=== PATIENT | male | born 1935 | race Caucasian/White ===

== ENCOUNTER 2016-12-31 10:20 | Emergency (ER) | payer MEDICARE, BC ==
[2016-12-31] MEDS ORDERED: ACETAMINOPHEN IV (For NPO) 1,000 MG in EMPTY BAG 1 BAG IVPB STA (10:34)
[2016-12-31] MEDS ORDERED: IPRATROPIUM-ALBUTEROL 3 ML NEB INHALATION STA (10:35)
--- NOTE | 2016-12-31 10:38 | ED ---
General Adult HPI - General Chief complaint: Shortness of Breath Stated complaint: SOB Time Seen by Provider: 12/31/16 10:28 Source: patient, family, RN notes reviewed Mode of arrival: EMS Limitations: altered mental status - History of Present Illness Initial comments: Patient is a pleasant 81-year-old male presenting to the emergency department with concerns for difficulty in breathing. Patient has dementia and is a poor historian. Majority of history is taken from the family onset of symptoms was just yesterday. Cough is mild. Symptoms seem worse today. Patient seemed short of breath. Patient denies any dyspnea. Patient states he feels fine and has no complaints. Family also states patient has been shaking. - Related Data Home Medications Medication Instructions Recorded Confirmed Aspirin EC [Ecotrin Low Dose] 81 mg PO HS 04/30/16 12/31/16 Benazepril HCl 40 mg PO DAILY 04/30/16 12/31/16 Donepezil [Aricept] 10 mg PO BID 04/30/16 12/31/16 Felodipine [Felodipine ER] 10 mg PO DAILY 04/30/16 12/31/16 Memantine [Namenda] 20 mg PO BID 04/30/16 12/31/16 [place]-3 Fatty Acids/Fish Oil [Fish 1 cap PO DAILY 04/30/16 12/31/16 Oil 1,000 mg Softgel] Simvastatin [Zocor] 40 mg PO HS 04/30/16 12/31/16 Vitamin E 100 unit PO DAILY 04/30/16 12/31/16 Melatonin 10 mg PO HS 12/31/16 12/31/16 Previous Rx's Medication Instructions Recorded Albuterol Inhaler [Ventolin Hfa 2 puff INHALATION Q4HR PRN #1 12/31/16 Inhaler] inhaler Azithromycin [Zithromax Z-pack] 250 mg PO DIRECTED #6 tab 12/31/16 Allergies Allergy/AdvReac Type Severity Reaction Status Date / Time No Known Allergies Allergy Verified 12/31/16 12:40 Review of Systems ROS Statement: Those systems with pertinent positive or pertinent negative responses have been documented in the HPI. ROS Other: All systems not noted in ROS Statement are negative. Constitutional: Reports: fever, chills Eyes: Denies: eye pain ENT: Denies: ear pain Respiratory: Reports: cough, dyspnea Cardiovascular: Denies: chest pain Endocrine: Reports: fatigue Gastrointestinal: Denies: abdominal pain Genitourinary: Denies: dysuria Musculoskeletal: Denies: back pain Skin: Denies: rash Neurological: Reports: weakness (Generalized) Past Medical History Past Medical History: Dementia, Hyperlipidemia, Hypertension, Liver Disease History of Any Multi-Drug Resistant Organisms: None Reported Past Surgical History: Unable to Obtain Additional Past Surgical History / Comment(s): bilateral knee replacement, r shoulder surgery Past Anesthesia/Blood Transfusion Reactions: No Reported Reaction Past Psychological History: No Psychological Hx Reported Smoking Status: Former smoker Past Alcohol Use History: Occasional Past Drug Use History: None Reported General Exam Limitations: no limitations General appearance: alert, in no apparent distress Head exam: Present: atraumatic Eye exam: Present: normal appearance, PERRL ENT exam: Present: normal oropharynx Neck exam: Present: normal inspection Respiratory exam: Present: rales (Right f) Cardiovascular Exam: Present: regular rate, normal rhythm GI/Abdominal exam: Present: soft. Absent: tenderness Extremities exam: Present: normal inspection. Absent: pedal edema, calf tenderness Back exam: Present: normal inspection Neurological exam: Present: alert. Absent: motor sensory deficit Psychiatric exam: Present: normal affect, normal mood Skin exam: Absent: rash Course Vital Signs 12/31/16 12/31/16 12/31/16 10:22 10:34 11:04 Temperature 101.9 F H Pulse Rate 88 91 84 Respiratory 22 18 18 Rate Blood Pressure 109/66 152/76 163/79 O2 Sat by Pulse 93 L 94 L 93 L Oximetry 12/31/16 12/31/16 12/31/16 11:34 11:35 11:50 Temperature Pulse Rate 78 78 79 Respiratory 20 Rate Blood Pressure 150/71 O2 Sat by Pulse 93 L Oximetry 12/31/16 12/31/16 12:18 13:34 Temperature 101.0 F H Pulse Rate 84 82 Respiratory 20 18 Rate Blood Pressure 148/71 145/70 O2 Sat by Pulse 94 L 92 L Oximetry EKG Findings - EKG Comments: EKG Findings:: Normal sinus rhythm at 89. NC 182. QRS 84. QT 412. QTC 501. Normal axis. Normal QRS. No acute ST change. Medical Decision Making - Medical Decision Making Patient reexamined and feels much better. Patient is symptom-free and requests discharge. Pulse ox 94% on room air. Lung sounds are clear. Admission was offered however patient would like to go home. Family does request discharge as well. Patient and family are made aware that this could be early pneumonia and to return if symptoms worsen. - Lab Data Result diagrams: 12/31/16 10:30 12/31/16 10:30 Lab Results 12/31/16 12/31/16 12/31/16 Range/Units 10:30 10:30 10:30 WBC 8.0 (3.8-10.6) k/uL RBC 4.47 (4.30-5.90) m/uL Hgb 14.7 (13.0-17.5) gm/dL Hct 44.6 (39.0-53.0) % MCV 99.6 (80.0-100.0) fL MCH 32.8 (25.0-35.0) pg MCHC 32.9 (31.0-37.0) g/dL RDW 12.7 (11.5-15.5) % Plt Count 232 (150-450) k/uL Neutrophils % 85 % Lymphocytes % 9 % Monocytes % 5 % Eosinophils % 0 % Basophils % 0 % Neutrophils # 6.7 (1.3-7.7) k/uL Lymphocytes # 0.7 L (1.0-4.8) k/uL Monocytes # 0.4 (0-1.0) k/uL Eosinophils # 0.0 (0-0.7) k/uL Basophils # 0.0 (0-0.2) k/uL PT (9.0-12.0) sec INR (<1.1) APTT (22.0-30.0) sec Sodium 140 (137-145) mmol/L Potassium 4.1 (3.5-5.1) mmol/L Chloride 103 (98-107) mmol/L Carbon Dioxide 27 (22-30) mmol/L Anion Gap 10 mmol/L BUN 13 (9-20) mg/dL Creatinine 1.22 (0.66-1.25) mg/dL Est GFR (MDRD) Af Amer >60 (>60 ml/min/1.73 sqM) Est GFR (MDRD) Non-Af 57 (>60 ml/min/1.73 sqM) Glucose 107 H (74-99) mg/dL Plasma Lactic Acid Donte (0.7-2.0) mmol/L Calcium 10.2 (8.4-10.2) mg/dL Total Bilirubin 0.8 (0.2-1.3) mg/dL AST 34 (17-59) U/L ALT 44 (21-72) U/L Alkaline Phosphatase 135 H (38-126) U/L Total Creatine Kinase 107 (55-170) U/L CK-MB (CK-2) 0.8 (0.0-2.4) ng/mL CK-MB (CK-2) Rel Index 0.7 Troponin I <0.012 (0.000-0.034) ng/mL Total Protein 7.1 (6.3-8.2) g/dL Albumin 4.2 (3.5-5.0) g/dL Urine Color Urine Appearance (Clear) Urine pH (5.0-8.0) Ur Specific [place] (1.001-1.035) Urine Protein (Negative) Urine Glucose (UA) (Negative) Urine Ketones (Negative) Urine Blood (Negative) Urine Nitrate (Negative) Urine Bilirubin (Negative) Urine Urobilinogen (<2.0) mg/dL Ur Leukocyte Esterase (Negative) Influenza Type A RNA (Not Detectd) Influenza Type B (PCR) (Not Detectd) 12/31/16 12/31/16 12/31/16 Range/Units 10:30 10:30 10:30 WBC (3.8-10.6) k/uL RBC (4.30-5.90) m/uL Hgb (13.0-17.5) gm/dL Hct (39.0-53.0) % MCV (80.0-100.0) fL MCH (25.0-35.0) pg MCHC (31.0-37.0) g/dL RDW (11.5-15.5) % Plt Count (150-450) k/uL Neutrophils % % Lymphocytes % % Monocytes % % Eosinophils % % Basophils % % Neutrophils # (1.3-7.7) k/uL Lymphocytes # (1.0-4.8) k/uL Monocytes # (0-1.0) k/uL Eosinophils # (0-0.7) k/uL Basophils # (0-0.2) k/uL PT 10.2 (9.0-12.0) sec INR 1.0 (<1.1) APTT 25.7 (22.0-30.0) sec Sodium (137-145) mmol/L Potassium (3.5-5.1) mmol/L Chloride (98-107) mmol/L Carbon Dioxide (22-30) mmol/L Anion Gap mmol/L BUN (9-20) mg/dL Creatinine (0.66-1.25) mg/dL Est GFR (MDRD) Af Amer (>60 ml/min/1.73 sqM) Est GFR (MDRD) Non-Af (>60 ml/min/1.73 sqM) Glucose (74-99) mg/dL Plasma Lactic Acid Donte 1.6 (0.7-2.0) mmol/L Calcium (8.4-10.2) mg/dL Total Bilirubin (0.2-1.3) mg/dL AST (17-59) U/L ALT (21-72) U/L Alkaline Phosphatase (38-126) U/L Total Creatine Kinase (55-170) U/L CK-MB (CK-2) (0.0-2.4) ng/mL CK-MB (CK-2) Rel Index Troponin I (0.000-0.034) ng/mL Total Protein (6.3-8.2) g/dL Albumin (3.5-5.0) g/dL Urine Color Urine Appearance (Clear) Urine pH (5.0-8.0) Ur Specific [place] (1.001-1.035) Urine Protein (Negative) Urine Glucose (UA) (Negative) Urine Ketones (Negative) Urine Blood (Negative) Urine Nitrate (Negative) Urine Bilirubin (Negative) Urine Urobilinogen (<2.0) mg/dL Ur Leukocyte Esterase (Negative) Influenza Type A RNA Not Detected (Not Detectd) Influenza Type B (PCR) Not Detected (Not Detectd) 12/31/16 Range/Units 12:35 WBC (3.8-10.6) k/uL RBC (4.30-5.90) m/uL Hgb (13.0-17.5) gm/dL Hct (39.0-53.0) % MCV (80.0-100.0) fL MCH (25.0-35.0) pg MCHC (31.0-37.0) g/dL RDW (11.5-15.5) % Plt Count (150-450) k/uL Neutrophils % % Lymphocytes % % Monocytes % % Eosinophils % % Basophils % % Neutrophils # (1.3-7.7) k/uL Lymphocytes # (1.0-4.8) k/uL Monocytes # (0-1.0) k/uL Eosinophils # (0-0.7) k/uL Basophils # (0-0.2) k/uL PT (9.0-12.0) sec INR (<1.1) APTT (22.0-30.0) sec Sodium (137-145) mmol/L Potassium (3.5-5.1) mmol/L Chloride (98-107) mmol/L Carbon Dioxide (22-30) mmol/L Anion Gap mmol/L BUN (9-20) mg/dL Creatinine (0.66-1.25) mg/dL Est GFR (MDRD) Af Amer (>60 ml/min/1.73 sqM) Est GFR (MDRD) Non-Af (>60 ml/min/1.73 sqM) Glucose (74-99) mg/dL Plasma Lactic Acid Donte (0.7-2.0) mmol/L Calcium (8.4-10.2) mg/dL Total Bilirubin (0.2-1.3) mg/dL AST (17-59) U/L ALT (21-72) U/L Alkaline Phosphatase (38-126) U/L Total Creatine Kinase (55-170) U/L CK-MB (CK-2) (0.0-2.4) ng/mL CK-MB (CK-2) Rel Index Troponin I (0.000-0.034) ng/mL Total Protein (6.3-8.2) g/dL Albumin (3.5-5.0) g/dL Urine Color Yellow Urine Appearance Clear (Clear) Urine pH 7.5 (5.0-8.0) Ur Specific [place] 1.016 (1.001-1.035) Urine Protein Trace H (Negative) Urine Glucose (UA) Negative (Negative) Urine Ketones Negative (Negative) Urine Blood Negative (Negative) Urine Nitrate Negative (Negative) Urine Bilirubin Negative (Negative) Urine Urobilinogen <2.0 (<2.0) mg/dL Ur Leukocyte Esterase Negative (Negative) Influenza Type A RNA (Not Detectd) Influenza Type B (PCR) (Not Detectd) - Radiology Data Radiology results: image reviewed (This x-ray shows no acute process) Disposition Clinical Impression: Acute bronchitis Disposition: HOME SELF-CARE Condition: Stable Instructions: Acute Bronchitis (ED) Additional Instructions: Continue [id number] Tylenol or Motrin as needed. Return for difficulty in breathing, weakness, change in mental status, worsening symptoms or other concerns. Prescriptions: Albuterol Inhaler [Ventolin Hfa Inhaler] 2 puff INHALATION Q4HR PRN #1 inhaler PRN Reason: Dyspnea Azithromycin [Zithromax Z-pack] 250 mg PO DIRECTED #6 tab Referrals: Ashutosh Childress MD [Primary Care Provider] - 1-2 days
[2016-12-31] MEDS ORDERED: SODIUM CHLORIDE 0.9% 500 ML IV SCH (10:45)
[2016-12-31 10:57] LABS: Basophils % (A) 0 %; CH 33.2; CHCM 33.4; Eosinophils % (A) 0 %; HCT 44.6 % (39.0-53.0); HDW 2.12; HGB 14.7 gm/dL (13.0-17.5); Luc # (Auto) 0.15; Luc % (Auto) 2; Lymphocytes # (A) 0.7 k/uL (1.0-4.8); Lymphocytes % (A) 9 %; MCH 32.8 pg (25.0-35.0); MCHC 32.9 g/dL (31.0-37.0); MCV 99.6 fL (80.0-100.0); Mean Platelet Volume 6.6; Monocytes # (A) 0.4 k/uL (0-1.0); Monocytes % (A) 5 %; Neutrophils # (A) 6.7 k/uL (1.3-7.7); Neutrophils % (A) 85 %; RBC 4.47 m/uL (4.30-5.90); RDW 12.7 % (11.5-15.5); WBC (Perox) 7.96
[2016-12-31 11:04] LABS: Partial Thromboplastin Time 25.7 sec (22.0-30.0); Prothrombin Time 10.2 sec (9.0-12.0)
--- NOTE | 2016-12-31 11:16 | XR ---
EXAMINATION TYPE: XR chest 2V DATE OF EXAM: 12/31/2016 11:00 AM COMPARISON: 04/30/2016 INDICATION: Shortness of breath fever cough congestion TECHNIQUE: Frontal and lateral views of the chest are obtained. FINDINGS: The heart size is normal. The pulmonary vasculature is normal. The lungs are clear. IMPRESSION: 1. No acute pulmonary process.
[2016-12-31 11:20] LABS: ALT 44 U/L (21-72); AST 34 U/L (17-59); Alkaline Phosphatase 135 U/L (38-126); Anion Gap 10 mmol/L; Blood Urea Nitrogen 13 mg/dL (9-20); Calcium 10.2 mg/dL (8.4-10.2); Carbon Dioxide 27 mmol/L (22-30); Chloride 103 mmol/L (98-107); Glucose 107 mg/dL (74-99); Non-African American GFR(MDRD) 57 (>60 ml/min/1.73 sqM); Potassium 4.1 mmol/L (3.5-5.1); Sodium 140 mmol/L (137-145); Total Bilirubin 0.8 mg/dL (0.2-1.3); Total Protein 7.1 g/dL (6.3-8.2)
[2016-12-31 11:23] LABS: Creatine Kinase 107 U/L (55-170)
[2016-12-31 11:36] LABS: Creatine Kinase MB 0.8 ng/mL (0.0-2.4); Troponin I <0.012 ng/mL (0.000-0.034)
[2016-12-31 12:45] LABS: Appearance,Urine Clear (Clear); Bilirubin,Urine Negative (Negative); Glucose,Urine (UA) Negative (Negative); Ketones,Urine Negative (Negative); Leukocyte Esterase,Urine Negative (Negative); Nitrite,Urine Negative (Negative); PH, Urine 7.5 (5.0-8.0); Protein,Urine Trace (Negative); Specific Gravity,Urine 1.016 (1.001-1.035); UA Billing (MACRO vs. MICRO) CHEM; Urobilinogen,Urine <2.0 mg/dL (<2.0)
[2016-12-31] MEDS ORDERED: IBUPROFEN 400 MG TAB PO STA (14:04)
[2016-12-31] MEDS ORDERED: AZITHROMYCIN 500 MG TAB PO STA (14:06)
[2016-12-31 14:31] VITALS: BP 166/78; PULSE 88; RESP 16; TEMP 98.8
== END 2016-12-31 14:39 | disposition home or self-care (01) ==
LOC: SUPCPDRO 10:20 → EC 10:20
DX: J20.9 Acute bronchitis, unspecified (principal); F03.90 Unspecified dementia, unspecified severity, without behavioral disturbance, psychotic disturbance, mood disturbance, and anxiety; I10 Essential (primary) hypertension; E78.5 Hyperlipidemia, unspecified; Z87.891 Personal history of nicotine dependence; Z87.19 Personal history of other diseases of the digestive system; Z79.82 Long term (current) use of aspirin; Z79.899 Other long term (current) drug therapy
CPT/HCPCS: 36415; 94640; 93005; 80053; 82550; 82553; 83605; 84484; 85025; 85610; 85730; 81003; 87040; 87086; 87502; 71020; 99285; 96374; 96361 ×4; J0131

== ENCOUNTER 2018-06-28 14:44 | Inpatient (IN) | payer MEDICARE, BC ==
[2018-06-28] MEDS ORDERED: SODIUM CHLORIDE 0.9% 500 ML IV STA (14:52)
[2018-06-28] MEDS ORDERED: DIPH,PERTUS(ACELL)TETVAC-LF 0.5 ML VIAL IM ONE (14:53)
--- NOTE | 2018-06-28 14:56 | ED ---
General Adult HPI - General Stated complaint: FALL WITH HEAD INJURY Time Seen by Provider: 06/28/18 14:49 Source: patient, EMS, RN notes reviewed, old records reviewed Limitations: altered mental status (Dementia) - History of Present Illness Initial comments: 83-year-old male presents status post fall with head injury. According to EMS patient was shopping, began to feel somewhat flushed, he sat down and fell forward striking his forehead. Patient's denies loss of consciousness. According to EMS patient is only on a daily aspirin. Patient has no complaints the time my evaluation. He does have baseline dementia. Further history will be obtained from the patient's upon arrival. - Related Data Home Medications Medication Instructions Recorded Confirmed Aspirin EC [Ecotrin Low Dose] 81 mg PO HS 04/30/16 06/28/18 Benazepril HCl 40 mg PO DAILY 04/30/16 06/28/18 [place]-3 Fatty Acids/Fish Oil [Fish 1 cap PO DAILY 04/30/16 06/28/18 Oil 1,000 mg Softgel] Simvastatin [Zocor] 40 mg PO HS 04/30/16 06/28/18 Vitamin E 100 unit PO DAILY 04/30/16 06/28/18 Cholecalciferol [Vitamin D3] 1,000 unit PO BID 06/28/18 06/28/18 LORazepam [Ativan] 0.5 mg PO BID 06/28/18 06/28/18 Multivitamins, Thera [Multivitamin 1 tab PO DAILY 06/28/18 06/28/18 (formulary)] amLODIPine [Norvasc] 10 mg PO DAILY 06/28/18 06/28/18 Allergies Allergy/AdvReac Type Severity Reaction Status Date / Time No Known Allergies Allergy Verified 06/28/18 15:18 Review of Systems ROS Statement: Those systems with pertinent positive or pertinent negative responses have been documented in the HPI. ROS Other: All systems not noted in ROS Statement are negative. Limitations: ROS unobtainable due to patients medical condition Past Medical History Past Medical History: Dementia, Hyperlipidemia, Hypertension, Liver Disease History of Any Multi-Drug Resistant Organisms: None Reported Past Surgical History: Unable to Obtain Additional Past Surgical History / Comment(s): bilateral knee replacement, r shoulder surgery Past Anesthesia/Blood Transfusion Reactions: No Reported Reaction Past Psychological History: No Psychological Hx Reported Smoking Status: Former smoker Past Alcohol Use History: Occasional Past Drug Use History: None Reported General Exam General appearance: alert, in no apparent distress Head exam: Present: normocephalic. Absent: atraumatic (Abrasion on the left posterior parietal region with no active bleeding, laceration left forehead, no active bleeding.) Eye exam: Present: normal appearance, PERRL, EOMI ENT exam: Present: normal exam Neck exam: Present: normal inspection, other (C-collar in place by EMS). Absent : tenderness Respiratory exam: Present: normal lung sounds bilaterally, respiratory distress Cardiovascular Exam: Present: regular rate, normal rhythm, systolic murmur GI/Abdominal exam: Present: soft. Absent: distended, tenderness Extremities exam: Present: normal inspection, normal capillary refill. Absent: pedal edema Neurological exam: Present: alert. Absent: motor sensory deficit Psychiatric exam: Present: normal affect, normal mood Skin exam: Present: warm, dry Course Vital Signs 06/28/18 06/28/18 06/28/18 14:55 15:52 16:48 Temperature 97.1 F L Pulse Rate 72 72 72 Respiratory 18 18 18 Rate Blood Pressure 136/70 144/72 158/78 O2 Sat by Pulse 98 97 98 Oximetry EKG Findings - EKG Comments: EKG Findings:: EKG: Sinus rhythm with occasional PVC, rate of 71, NH interval 202, QRS duration 102, QTC 4:[address] segment elevation or depression Medical Decision Making - Medical Decision Making 83-year-old male presenting with syncopal episode. Patient did have head trauma , there is laceration which is repaired on the forehead. All wounds are cleansed and antibiotic ointment applied. Patient's tetanus is updated. Laboratory studies reveal normal hemoglobin, normal white blood cell count, mild elevation in serum creatinine at 1.3-4 baseline of 1.2. Troponin is negative. Head CT negative for intracranial hemorrhage or mass effect, CT cervical spine is negative for fracture or subluxation. Patient does have a systolic murmur on exam, will be For telemetry and cardiac echo. - Lab Data Result diagrams: 06/28/18 15:07 06/28/18 15:07 Lab Results 06/28/18 06/28/18 06/28/18 Range/Units 15:07 15:07 15:07 WBC 7.6 (3.8-10.6) k/uL RBC 4.05 L (4.30-5.90) m/uL Hgb 13.1 (13.0-17.5) gm/dL Hct 39.5 (39.0-53.0) % MCV 97.5 (80.0-100.0) fL MCH 32.4 (25.0-35.0) pg MCHC 33.3 (31.0-37.0) g/dL RDW 12.9 (11.5-15.5) % Plt Count 229 (150-450) k/uL Neutrophils % 78 % Lymphocytes % 14 % Monocytes % 5 % Eosinophils % 1 % Basophils % 0 % Neutrophils # 6.0 (1.3-7.7) k/uL Lymphocytes # 1.0 (1.0-4.8) k/uL Monocytes # 0.4 (0-1.0) k/uL Eosinophils # 0.1 (0-0.7) k/uL Basophils # 0.0 (0-0.2) k/uL PT (9.0-12.0) sec INR (<1.2) APTT (22.0-30.0) sec Sodium 138 (137-145) mmol/L Potassium 4.4 (3.5-5.1) mmol/L Chloride 110 H (98-107) mmol/L Carbon Dioxide 25 (22-30) mmol/L Anion Gap 3 mmol/L BUN 21 H (9-20) mg/dL Creatinine 1.32 H (0.66-1.25) mg/dL Est GFR (CKD-EPI)AfAm 57 (>60 ml/min/1.73 sqM) Est GFR (CKD-EPI)NonAf 49 (>60 ml/min/1.73 sqM) Glucose 92 (74-99) mg/dL Calcium 10.1 (8.4-10.2) mg/dL Total Bilirubin 0.4 (0.2-1.3) mg/dL AST 23 (17-59) U/L ALT 36 (21-72) U/L Alkaline Phosphatase 68 (38-126) U/L Total Creatine Kinase 57 (55-170) U/L CK-MB (CK-2) 1.4 (0.0-2.4) ng/mL CK-MB (CK-2) Rel Index 2.5 Troponin I <0.012 (0.000-0.034) ng/mL Total Protein 5.6 L (6.3-8.2) g/dL Albumin 3.5 (3.5-5.0) g/dL /08/07 Range/Units 15:07 WBC (3.8-10.6) k/uL RBC (4.30-5.90) m/uL Hgb (13.0-17.5) gm/dL Hct (39.0-53.0) % MCV (80.0-100.0) fL MCH (25.0-35.0) pg MCHC (31.0-37.0) g/dL RDW (11.5-15.5) % Plt Count (150-450) k/uL Neutrophils % % Lymphocytes % % Monocytes % % Eosinophils % % Basophils % % Neutrophils # (1.3-7.7) k/uL Lymphocytes # (1.0-4.8) k/uL Monocytes # (0-1.0) k/uL Eosinophils # (0-0.7) k/uL Basophils # (0-0.2) k/uL PT 9.8 (9.0-12.0) sec INR 1.0 (<1.2) APTT 19.5 L (22.0-30.0) sec Sodium (137-145) mmol/L Potassium (3.5-5.1) mmol/L Chloride (98-107) mmol/L Carbon Dioxide (22-30) mmol/L Anion Gap mmol/L BUN (9-20) mg/dL Creatinine (0.66-1.25) mg/dL Est GFR (CKD-EPI)AfAm (>60 ml/min/1.73 sqM) Est GFR (CKD-EPI)NonAf (>60 ml/min/1.73 sqM) Glucose (74-99) mg/dL Calcium (8.4-10.2) mg/dL Total Bilirubin (0.2-1.3) mg/dL AST (17-59) U/L ALT (21-72) U/L Alkaline Phosphatase (38-126) U/L Total Creatine Kinase (55-170) U/L CK-MB (CK-2) (0.0-2.4) ng/mL CK-MB (CK-2) Rel Index Troponin I (0.000-0.034) ng/mL Total Protein (6.3-8.2) g/dL Albumin (3.5-5.0) g/dL Disposition Clinical Impression: Syncope Disposition: ADMITTED IP TO THIS HOSP Condition: Stable Is patient prescribed a controlled substance at d/c from ED?: No Referrals: Ashutosh Childress MD [Primary Care Provider] - 1-2 days Time of Disposition: 17:26
[2018-06-28 15:17] LABS: Basophils % (A) 0 %; Eosinophils # (A) 0.1 k/uL (0-0.7); Eosinophils % (A) 1 %; HCT 39.5 % (39.0-53.0); HGB 13.1 gm/dL (13.0-17.5); Lymphocytes % (A) 14 %; MCH 32.4 pg (25.0-35.0); MCHC 33.3 g/dL (31.0-37.0); MCV 97.5 fL (80.0-100.0); Mean Platelet Volume 6.6; Monocytes # (A) 0.4 k/uL (0-1.0); Monocytes % (A) 5 %; Neutrophils % (A) 78 %; Platelet Count 229 k/uL (150-450); RBC 4.05 m/uL (4.30-5.90); RDW 12.9 % (11.5-15.5); WBC 7.6 k/uL (3.8-10.6)
[2018-06-28 15:29] LABS: Albumin 3.5 g/dL (3.5-5.0); Calcium 10.1 mg/dL (8.4-10.2); Potassium 4.4 mmol/L (3.5-5.1); Total Bilirubin 0.4 mg/dL (0.2-1.3); Total Protein 5.6 g/dL (6.3-8.2)
[2018-06-28 15:32] LABS: Prothrombin Time 9.8 sec (9.0-12.0)
[2018-06-28 15:34] LABS: Creatine Kinase 57 U/L (55-170); Partial Thromboplastin Time 19.5 sec (22.0-30.0)
[2018-06-28 15:46] LABS: Creatine Kinase MB 1.4 ng/mL (0.0-2.4); Troponin I <0.012 ng/mL (0.000-0.034)
--- NOTE | 2018-06-28 15:49 | CT ---
EXAMINATION TYPE: CT brain cspine wo con DATE OF EXAM: 06/28/2018 COMPARISON: CT brain and cervical spine April 30, 2016. HISTORY: FALL WITH HEAD INJURY and neck pain. CT DLP: 1700 mGycm. Automated Exposure Control for Dose Reduction was Utilized. TECHNIQUE: CT scan of the head and cervical spine are performed without contrast. FINDINGS: There is no acute intracranial hemorrhage or midline shift identified. There is diffuse v entricular and sulcal prominence consistent with diffuse cerebral atrophy. Areas of low-attenuation t hroughout the white matter redemonstrated. The calvarium is intact. There is redemonstration of small mucous retention cyst or polyp in inferior left maxillary sinus otherwise the globes are intact and the visualized sinuses are clear. Right-sided basal ganglia calcifications are redemonstrated. Opacif ied left-sided mastoid air cells are redemonstrated. Soft tissue surrounds the right-sided middle ear ossicles similar to prior. Cervical spine is visualized in its entirety from C1 through upper thoracic levels and demonstrates s table and straightened alignment without evidence of acute fracture or dislocation. Prevertebral sof t tissue appears within normal limits. The C1-C2 articulation is within normal limits on the coronal images. There is marked narrowing of the atlantodental interval redemonstrated. Vertebral body heights are ma intained. Advanced disc space narrowing with endplate sclerosis and moderate spurring C6-C7 level is redemonstrated. Posterior spur disc complexes effacing anterior thecal sac at C5-C6 and C6-C7 level o n sagittal and axial images. Review of axial images shows left-sided uncovertebral facet degenerative changes contributing to multilevel neural foraminal narrowing C2-C3 through C4-C5 level and right-si ded neural foraminal narrowing C5-C6 level due to right-sided uncovertebral facet degenerative change s. Thyroid gland is felt within normal limits. Visualized lung apices are clear. IMPRESSION: 1. There is no acute fracture or dislocation evident in the cervical spine. Multilevel degenerative c hanges redemonstrated most prominent at C6-C7 level. 2. No acute intracranial hemorrhage or midline shift is seen. Background fairly moderate to severe di ffuse cerebral atrophy and mild to moderate chronic small vessel ischemic change noted. Possible left -sided mastoiditis and chronic middle ear infection unchanged from prior.
--- NOTE | 2018-06-28 16:07 | XR ---
EXAMINATION TYPE: XR chest 2V DATE OF EXAM: 06/28/2018 COMPARISON: 10/06 HISTORY: Syncope and fall. TECHNIQUE: Frontal and lateral views of the chest are obtained. FINDINGS: There is no focal air space opacity, pleural effusion, or pneumothorax seen. Mediastinal p rominence is slightly enlarged from the prior, however may be exaggerated due to decreased inspiratio n and patient rotation. Chronic widening of the right acromioclavicular joint is noted. The osseous structures are intact. There is diffuse osseous demineralization. IMPRESSION: No focal consolidation to suggest pneumonia. Slight mediastinal widening is likely relat ed to patient positioning and only minimally progressed from the prior of 12/31/2016.
[2018-06-28] MEDS ORDERED: LIDOCAINE 1% INJ 10MG/ML (20 ML MDV) SQ ONE (16:16)
[2018-06-28] MEDS ORDERED: ACETAMINOPHEN TAB 325 MG TAB PO PRN (17:15)
[2018-06-28] MEDS ORDERED: SODIUM CHLORIDE 0.9% 1,000 ML IV SCH (17:15)
[2018-06-28] MEDS ORDERED: NALOXONE 0.4 MG/ML 1 ML VIAL IV PRN (17:15)
--- NOTE | 2018-06-28 18:45 | P.HPIM ---
History of Present Illness H&P Date: 06/28/18 Chief Complaint: Loss of consciousness This is a 83-year-old male with history of hypertension, dementia and " childhood murmur"who presented to emergency department after loss of consciousness. Patient was admitted supermarket with his store short walking around shopping when suddenly he felt clammy lightheaded and had to be bringing down had to be brought down to the ground. He at that point did not lost his consciousness he had but he tried to get up but at that point felt so lightheaded and clammy that he fell down and lost consciousness for few seconds. There were no preceding chest pain, lightheadedness, headache, aura, palpitations, diaphoresis or sweating. Patient states that he's been in usual state of health for the last few days without any particular problems. Right after the episode he regained consciousness for a few seconds her right after the episode he seems to be orientated and aware of his surrounding. Still elevated sweaty pale and clammy, no confusion, no tongue biting no, no tonoclonic activity was told, no urinary or bowel incontinence. He was brought to emergency department where spontaneous stable vital vital signs. Physical exam it was found to have very loud murmur in the aortic area. Family patient has had a murmur for most of his life since childhood. He has been he had followed with cardiology 1. and at that point he was told that he would need a follow-up echocardiograms all was every year. But he did not go back to the office and he was last follow-up many years ago. 9. Family patient has had several syncopal syncopal episodes over the last 2 years somewhat those and exertion and some of those addressed there were also similar in nature with him suddenly losing course and becoming pale and clammy. Per he has been also having some exertional dyspnea and there was no chest pain and a has no be any leg swelling or orthopnea. Patient has also history of hypertension for which he has been on amlodipine and Benzapril this has been stable those without any recent changes. He has been just recently started on Ativan couple days prior to this episode. Otherwise no new medications Review of Systems REVIEW OF SYSTEMS: CONSTITUTIONAL: denies any recent weight changes, fevers or night sweats. DERMATOLOGIC: denies any rashes. HEENT: Eyes: no changes in her vision. No eye pain. No discharge. ENT: She had no hearing changes, no throat pain, no sinus difficulties. No hoarseness. CARDIOVASCULAR: She denies any chest pain or abnormal heart beats, or any swelling in her ankles or feet. RESPIRATORY: No wheezing or coughing. GASTROINTESTINAL: No abdominal pain, nausea vomiting or changes in the bowel habits GENITOURINARY: denies any urinary urgency, frequency or burning, and there has been no blood in her urine. no flank pain. MUSCULOSKELETAL: full range of motion of all her joints without pain or swelling. ENDOCRINE: denies any heat or cold intolerance or excessive thirst or urination. NEUROLOGICAL: Currently, no headache.no vision changes No numbness or tingling. PSYCHIATRIC: No depression or anxiety Past Medical History Past Medical History: Dementia, Hyperlipidemia, Hypertension, Liver Disease Additional Past Medical History / Comment(s): Murmur since childhood History of Any Multi-Drug Resistant Organisms: None Reported Past Surgical History: Unable to Obtain Additional Past Surgical History / Comment(s): bilateral knee replacement, r shoulder surgery Past Anesthesia/Blood Transfusion Reactions: No Reported Reaction Past Psychological History: No Psychological Hx Reported Smoking Status: Former smoker Past Alcohol Use History: Occasional Past Drug Use History: None Reported Medications and Allergies Home Medications Medication Instructions Recorded Confirmed Type Aspirin EC [Ecotrin Low Dose] 81 mg PO HS 04/30/16 06/28/18 History Benazepril HCl 40 mg PO DAILY 04/30/16 06/28/18 History [place]-3 Fatty Acids/Fish Oil [Fish 1 cap PO DAILY 04/30/16 06/28/18 History Oil 1,000 mg Softgel] Simvastatin [Zocor] 40 mg PO HS 04/30/16 06/28/18 History Vitamin E 100 unit PO DAILY 04/30/16 06/28/18 History Cholecalciferol [Vitamin D3] 1,000 unit PO BID 06/28/18 06/28/18 History LORazepam [Ativan] 0.5 mg PO BID 06/28/18 06/28/18 History Multivitamins, Thera [Multivitamin 1 tab PO DAILY 06/28/18 06/28/18 History (formulary)] amLODIPine [Norvasc] 10 mg PO DAILY 06/28/18 06/28/18 History Allergies Allergy/AdvReac Type Severity Reaction Status Date / Time No Known Allergies Allergy Verified 06/28/18 15:18 Physical Exam Vitals: Vital Signs Temp Pulse Resp BP Pulse Ox 06/28/18 18:16 97.9 F 86 18 147/78 98 06/28/18 16:48 72 18 158/78 98 06/28/18 15:52 72 18 144/72 97 06/28/18 14:55 97.1 F L 72 18 136/70 98 Intake and Output 06/28/18 06/28/18 06/28/18 06:59 14:59 22:59 Other: Weight 81.647 kg - Constitutional General appearance: average body habitus, no acute distress, thin - EENT Sutured laceration on the forehead Eyes: anicteric sclerae, EOMI, PERRLA, normal appearance ENT: hard of hearing, normal oropharynx Ears: left: other (Left earlobe abrasion) - Neck Neck: no lymphadenopathy, normal ROM, no rigidity Carotids: bilateral: upstroke delayed - Respiratory Respiratory: bilateral: CTA, negative: diminished, dullness, rales, rhonchi, wheezing - Cardiovascular Rhythm: regular Heart sounds: normal: S1, S2 Abnormal Heart Sounds: systolic murmur systolic murmur (1) Type: holo Location: other Grade: IV/ Radiation: carotids - Gastrointestinal General gastrointestinal: normal bowel sounds, no organomegaly, soft, no tenderness - Integumentary Integumentary: no pale, no rash, no ulcer - Neurologic Neurologic: CNII-XII intact - Musculoskeletal I examined Thorley his muscular skeletal system. Shoulders elbows wrists hips knees and ankles all have expected range of motion without any limitation pain tenderness or limitation in the motions Musculoskeletal: strength equal bilaterally - Psychiatric Psychiatric: A&O x's 3 Results CBC & Chem 7: 06/28/18 15:07 06/28/18 15:07 Labs: Abnormal Lab Results - Last 24 Hours (Table) 06/28/18 06/28/18 06/28/18 Range/Units 15:07 15:07 15:07 RBC 4.05 L (4.30-5.90) m/uL APTT 19.5 L (22.0-30.0) sec Chloride 110 H (98-107) mmol/L BUN 21 H (9-20) mg/dL Creatinine 1.32 H (0.66-1.25) mg/dL Total Protein 5.6 L (6.3-8.2) g/dL Thrombosis Risk Factor Assmnt - DVT/VTE Prophylaxis DVT/VTE Prophylaxis: Low risk, early ambulation encouraged Assessment and Plan Plan: 1. Syncope Rule out cardiogenic rule out aortic stenosis Echo ordered Rule out side effects of medications a vasovagal Will hold Ativan continue usual blood pressure home medications and check orthostatics couple hours after administration in the morning Keep on telemetry valid for any arrhythmias 2. Aortic murmur Rule out symptomatic aortic stenosis Echo ordered 3. Hypertension Continue home medications and check orthostatic 4. CKD stage 3 Visit stable creatinine Presently is a full code is a surrogate decision maker 2 or less midnights expected stay
[2018-06-28] MEDS: ASPIRIN 81 MG PO SCH (20:57)
[2018-06-28] MEDS: ATORVASTATIN 20 MG TAB PO SCH (20:57)
[2018-06-28] MEDS ORDERED: MELATONIN 3 MG TABLET PO ONE (21:30)
[2018-06-29] MEDS: LISINOPRIL 20 MG TAB PO SCH (08:27)
[2018-06-29] MEDS: amLODIPine 10 MG TAB PO SCH (08:27)
--- NOTE | 2018-06-29 09:25 | P.CRDCN ---
History of Present Illness Consult date: 06/29/18 Requesting physician: Abisai Judd Consult reason: sycope Chief complaint: Syncope History of present illness: This is a pleasant 83-year-old gentleman with known history of hypertension, hyperlipidemia, heart murmur, prior syncopal episode, Alzheimer's dementia, most of the history was obtained from the who is at bedside. Patient was brought to the hospital via EMS. According to the , they were shopping in [employer], patient became extremely clammy and diaphoretic, they sat down on a bench, the got him a cold cloth, then he actually laid down on the bench. Symptoms seemed to have subsided, patient then stood up and instantly fell down to the floor, hitting the side of his left had an ear. He did pass out according to the . EMS was called, blood pressure on their arrival 130/78, heart rate in the 60s, 92% on room air, blood sugar 116 patient did incur a 2-3 inch laceration on the left side of his 4, laceration in the ear and posterior head area as well. EKG was performed on EMS arrival which revealed a normal sinus rhythm with occasional PVC, no acute changes noted. EKG on arrival here showed a normal sinus rhythm with occasional PVC, no acute changes noted, telemetry strips are reviewed, they could not show any evidence of any significant pauses or tachyarrhythmias. No bradycardia arrhythmias. Patient should have an admission to the hospital in April 2016 which time he presented with an episode of loss of consciousness, he was seen in Consultation by Dr. Castillo at that time, it was felt that the patient had an episode of vasovagal syncope and patient was recommended to follow-up in the office. According to the , they take daily walks of approximately quarter mile, she states at the end of their walks her does become extremely clammy and diaphoretic requiring him to sit down. Chest x-ray on arrival here did not reveal any focal consolidation to suggest pneumonia, slight mediastinotomy widening, likely related to patient's positioning. CAT scan of the head and spine was also performed which did not reveal any acute fracture or dislocation of the cervical spine. Blood pressure on arrival here 136/70 with a heart rate in the 70s, 98% on room air. Blood pressure this morning 158/80, heart rate in the 80s, 95% on room air. White blood cell count 7.6, hemoglobin 13.1, platelet count 229. Sodium 138, potassium 4.4, BUN 21, creatinine 1.3. Troponin 0.012. At the time of my examination this morning, patient is lying flat in bed, no complaints, he does have quite moderate to severe dementia and Alzheimer's, which according to the has been progressing significantly. Past Medical History Past Medical History: Dementia, Hyperlipidemia, Hypertension, Liver Disease Additional Past Medical History / Comment(s): Murmur since childhood History of Any Multi-Drug Resistant Organisms: None Reported Past Surgical History: Unable to Obtain Additional Past Surgical History / Comment(s): bilateral knee replacement, r shoulder surgery Past Anesthesia/Blood Transfusion Reactions: No Reported Reaction Smoking Status: Former smoker - Past Family History Mother Family Medical History: Cancer Father Family Medical History: Myocardial Infarction ([place]) Medications and Allergies Home Medications Medication Instructions Recorded Confirmed Type Aspirin EC [Ecotrin Low Dose] 81 mg PO HS 04/30/16 06/28/18 History Benazepril HCl 40 mg PO DAILY 04/30/16 06/28/18 History [place]-3 Fatty Acids/Fish Oil [Fish 1 cap PO DAILY 04/30/16 06/28/18 History Oil 1,000 mg Softgel] Simvastatin [Zocor] 40 mg PO HS 04/30/16 06/28/18 History Vitamin E 100 unit PO DAILY 04/30/16 06/28/18 History Cholecalciferol [Vitamin D3] 1,000 unit PO BID 06/28/18 06/28/18 History LORazepam [Ativan] 0.5 mg PO BID 06/28/18 06/28/18 History Multivitamins, Thera [Multivitamin 1 tab PO DAILY 06/28/18 06/28/18 History (formulary)] amLODIPine [Norvasc] 10 mg PO DAILY 06/28/18 06/28/18 History Allergies Allergy/AdvReac Type Severity Reaction Status Date / Time No Known Allergies Allergy Verified 06/28/18 15:18 Physical Exam Vitals: Vital Signs Temp Pulse Pulse Pulse Resp BP BP 06/29/18 08:00 97.6 F 87 18 159/83 06/29/18 04:00 97.7 F 68 18 131/72 06/29/18 00:00 97.4 F L 69 18 145/75 06/28/18 20:00 97.6 F 71 71 19 153/71 06/28/18 18:38 85 16 129/75 06/28/18 18:25 06/28/18 18:16 97.9 F 86 18 147/78 06/28/18 16:48 72 18 158/78 06/28/18 15:52 72 18 144/72 06/28/18 14:55 97.1 F L 72 18 136/70 Pulse Ox 06/29/18 08:00 95 06/29/18 04:00 96 06/29/18 00:00 96 06/28/18 20:00 96 06/28/18 18:38 97 06/28/18 18:25 97 06/28/18 18:16 98 06/28/18 16:48 98 06/28/18 15:52 97 06/28/18 14:55 98 Intake and Output 06/28/18 06/29/18 06/29/18 22:59 06:59 14:59 Other: Voiding Method Toilet Toilet # Voids 1 Weight 84.2 kg PHYSICAL EXAMINATION: GENERAL: 83-year-old gentleman in no acute distress at the time of my examination HEENT: Head is atraumatic, normocephalic. Laceration to the left scalp area has been sutured. Clean and dry. Left ear, old blood noted. Pupils equal, round. Sclera anicteric. Conjunctiva are clear. Mucous membranes of the mouth are moist. Neck is supple. There is no elevated jugular venous pressure. No carotid bruit is heard. HEART EXAMINATION: Heart S1 and S2 systolic murmur suggestive of aortic stenosis is heard. CHEST EXAMINATION: Lungs are clear to auscultation and precussion. No chest wall tenderness is noted on palpation or with deep breathing. ABDOMEN: Soft, nontender. Bowel sounds are heard. No organomegaly noted. EXTREMITIES: 2+ peripheral pulses with no evidence of peripheral edema and no calf tenderness noted. NEUROLOGIC [patient is awake, alert, confused Results 06/28/18 15:07 06/28/18 15:07 Cardiac Enzymes 06/28/18 06/28/18 Range/Units 15:07 15:07 AST 23 (17-59) U/L CK-MB (CK-2) 1.4 (0.0-2.4) ng/mL Troponin I <0.012 (0.000-0.034) ng/mL Coagulation 06/28/18 Range/Units 15:07 PT 9.8 (9.0-12.0) sec APTT 19.5 L (22.0-30.0) sec CBC 06/28/18 Range/Units 15:07 WBC 7.6 (3.8-10.6) k/uL RBC 4.05 L (4.30-5.90) m/uL Hgb 13.1 (13.0-17.5) gm/dL Hct 39.5 (39.0-53.0) % Plt Count 229 (150-450) k/uL Comprehensive Metabolic Panel 06/28/18 Range/Units 15:07 Sodium 138 (137-145) mmol/L Potassium 4.4 (3.5-5.1) mmol/L Chloride 110 H (98-107) mmol/L Carbon Dioxide 25 (22-30) mmol/L BUN 21 H (9-20) mg/dL Creatinine 1.32 H (0.66-1.25) mg/dL Glucose 92 (74-99) mg/dL Calcium 10.1 (8.4-10.2) mg/dL AST 23 (17-59) U/L ALT 36 (21-72) U/L Alkaline Phosphatase 68 (38-126) U/L Total Protein 5.6 L (6.3-8.2) g/dL Albumin 3.5 (3.5-5.0) g/dL Current Medications Generic Name Dose Route Start Last Admin Trade Name Freq PRN Reason Stop Dose Admin Acetaminophen 650 mg 06/28/18 17:15 Tylenol Tab PO Q6HR PRN Mild Pain or Fever > 100.5 Amlodipine Besylate 10 mg 06/29/18 09:00 06/29/18 08:27 Norvasc PO 10 mg DAILY MARTHA Administration Aspirin 81 mg 06/28/18 21:00 06/28/18 20:57 Aspirin PO 81 mg HS MARTHA Administration Atorvastatin Calcium 20 mg 06/28/18 21:00 06/28/18 20:57 Lipitor PO 20 mg HS MARTHA Administration Lisinopril 40 mg 06/29/18 09:00 06/29/18 08:27 Zestril PO 40 mg DAILY MARTHA Administration Naloxone HCl 0.2 mg 06/28/18 17:15 Narcan IV Q2M PRN Opioid Reversal Intake and Output 06/28/18 06/29/18 06/29/18 22:59 06:59 14:59 Other: Voiding Method Toilet Toilet # Voids 1 Weight 84.2 kg 06/28/18 15:07 06/28/18 15:07 EKG Interpretations (text) EKG shows normal sinus rhythm with occasional PVCs. Assessment and Plan Plan: Assessment and plan #1 syncope, rule out cardiac causes. #2 history of prior syncopal episodes #3 hypertension #4 hyperlipidemia #5 Alzheimer's dementia #6 murmur suggestive of aortic stenosis Plan We will obtain an echocardiogram with Doppler study. We will also check orthostatic blood pressure and heart rate every shift. Continue to monitor for any tachycardia or bradycardia arrhythmias. Patient may also benefit from addition of a loop recorder. Further recommendations to follow. DNP note has been reviewed, I agree with a documented findings and plan of care. Patient was seen and examined.
--- NOTE | 2018-06-29 10:10 | ECHOF ---
Referral Reason:syncope MEASUREMENTS -------- HEIGHT: 175.3 cm WEIGHT: 83.9 kg BP: 131/72 RVIDd: 2.9 cm (< 3.3) IVSd: 1.3 cm (0.6 - 1.1) LVIDd: 4.8 cm (3.9 - 5.3) LVPWd: 1.3 cm (0.6 - 1.1) IVSs: 1.8 cm LVIDs: 3.1 cm LVPWs: 1.7 cm LA Diam: 3.8 cm (2.7 - 3.8) LAESV Index (A-L): 28.68 ml/m Ao Diam: 4.1 cm (2.0 - 3.7) AV Cusp: 2.1 cm (1.5 - 2.6) MV EXCURSION: 14.577 mm (> 18.000) MV EF SLOPE: 54 mm/s (70 - 150) EPSS: 0.7 cm MV E Yossi: 0.71 m/s MV DecT: 339 ms MV A Yossi: 1.19 m/s MV E/A Ratio: 0.59 AV maxP.12 mmHg AV meanP.68 mmHg RAP: 5.00 mmHg RVSP: 31.34 mmHg FINDINGS -------- Sinus rhythm with extra systolic beats. This was a technically good study. The left ventricular size is normal. There is mild concentric left ventricular hypertrophy. Overa ll left ventricular systolic function is normal with, an EF between 55 - 60 %. The right ventricle is normal in size. LA is midly dilated 29-33ml/m2. The right atrium is normal in size. There is mild aortic valve sclerosis. There is mild aortic stenosis present. Peak/mean gradient a cross the Aortic Valve is 26.12mmHg / 14.68mmHg. The mitral valve leaflets are mildly thickened. Mild tricuspid regurgitation present. Right ventricular systolic pressure is normal at < 35 mmHg. The pulmonic valve was not well visualized. The aortic root is dilated measuring 4.1cm. Normal inferior vena cava with normal inspiratory collapse consistent with estimated right atrial pre ssure of 5 mmHg. The inferior vena cava is mildly dilated. There is no pericardial effusion. CONCLUSIONS -------- 1. Sinus rhythm with extra systolic beats. 2. This was a technically good study. 3. The left ventricular size is normal. 4. There is mild concentric left ventricular hypertrophy. 5. Overall left ventricular systolic function is normal with, an EF between 55 - 60 %. 6. The right ventricle is normal in size. 7. LA is midly dilated 29-33ml/m2. 8. The right atrium is normal in size. 9. There is mild aortic valve sclerosis. 10. There is mild aortic stenosis present. 11. Peak/mean gradient across the Aortic Valve is 26.12mmHg / 14.68mmHg. 12. The mitral valve leaflets are mildly thickened. 13. Mild tricuspid regurgitation present. 14. Right ventricular systolic pressure is normal at < 35 mmHg. 15. The pulmonic valve was not well visualized. 16. The aortic root is dilated measuring 4.1cm. 17. Normal inferior vena cava with normal inspiratory collapse consistent with estimated right atrial pressure of 5 mmHg. 18. The inferior vena cava is mildly dilated. 19. There is no pericardial effusion. [employer] SET UP OPERATOR: Kyung Montenegro RDCS
--- NOTE | 2018-06-29 15:02 | P.PN ---
Subjective Progress Note Date: 06/29/18 Principal diagnosis: Syncope no new events Objective - Vital Signs Vital signs: Vital Signs Temp 97.5 F L 06/29/18 11:30 Pulse 79 06/29/18 11:30 Resp 18 06/29/18 11:30 BP 134/73 06/29/18 11:34 Pulse Ox 95 06/29/18 11:30 Intake & Output 06/28/18 06/29/18 06/29/18 18:59 06:59 18:59 Weight 81.647 kg 84.2 kg Other: Voiding Method Toilet # Voids 1 - Constitutional General appearance: Present: no acute distress - EENT Eyes: Present: PERRLA - Respiratory Respiratory: bilateral: CTA - Cardiovascular Rhythm: regular Abnormal Heart Sounds: Present: systolic murmur - Gastrointestinal General gastrointestinal: Present: normal bowel sounds - Integumentary Integumentary: Present: normal turgor - Musculoskeletal Musculoskeletal: Present: strength equal bilaterally - Psychiatric Psychiatric Comment(s): confused Psychiatric: Present: appropriate affect - Labs CBC & Chem 7: 06/28/18 15:07 06/28/18 15:07 Labs: Abnormal Lab Results - Last 24 Hours (Table) 06/28/18 06/28/18 06/28/18 Range/Units 15:07 15:07 15:07 RBC 4.05 L (4.30-5.90) m/uL APTT 19.5 L (22.0-30.0) sec Chloride 110 H (98-107) mmol/L BUN 21 H (9-20) mg/dL Creatinine 1.32 H (0.66-1.25) mg/dL Total Protein 5.6 L (6.3-8.2) g/dL Assessment and Plan (1) Syncope Narrative/Plan: Appreciate cardiology input echo results reviewed awaiting further recommendations Current Visit: Yes Status: Acute Code(s): R55 - SYNCOPE AND COLLAPSE SNOMED Code(s): 553606789 (2) HTN (hypertension) Narrative/Plan: continue current regimen Current Visit: Yes Status: Acute Code(s): I10 - ESSENTIAL (PRIMARY) HYPERTENSION SNOMED Code(s): 87794131 (3) CKD (chronic kidney disease) stage 3, GFR 30-59 ml/min Narrative/Plan: continue to monitor Current Visit: Yes Status: Acute Code(s): N18.3 - CHRONIC KIDNEY DISEASE, STAGE 3 (MODERATE) SNOMED Code(s): 144138237
[2018-06-29] MEDS: ATORVASTATIN 20 MG TAB PO SCH (19:39)
[2018-06-29] MEDS: ASPIRIN 81 MG PO SCH (19:39)
[2018-06-29] MEDS: MELATONIN 3 MG TABLET PO SCH (21:30)
[2018-06-30] MEDS: amLODIPine 10 MG TAB PO SCH (10:02)
[2018-06-30] MEDS: LISINOPRIL 20 MG TAB PO SCH (10:02)
[2018-06-30] MEDS ORDERED: LORazepam 0.5 MG TAB PO SCH (10:15)
--- NOTE | 2018-06-30 19:17 | P.PN ---
Subjective Progress Note Date: 06/30/18 Principal diagnosis: Syncope Patient was seen and examined. No acute events overnight. No more dizziness, CP , SOB or palpitations. Objective - Vital Signs Vital signs: Vital Signs Temp 98.3 F 06/30/18 16:00 Pulse 93 06/30/18 16:00 Resp 18 06/30/18 16:00 BP 144/79 06/30/18 16:00 Pulse Ox 92 L 06/30/18 16:00 Intake & Output 06/30/18 06/30/18 07/01/18 06:59 18:59 06:59 Intake Total 480 600 Balance 480 600 Weight 83.5 kg Intake: Oral 480 600 Other: Voiding Method Toilet Toilet # Voids 1 - Exam General: non toxic, no distress, appears at stated age Derm: warm, dry Head: atraumatic, normocephalic, symmetric, Well healing scar over the L eye Eyes: EOMI, no lid lag, anicteric sclera Mouth: no lip lesion, mucus membranes moist Cardiovascular: S1S2 reg, no murmur, positive posterior tibial pulse bilateral, Lungs: CTA bilateral, no rhonchi, no rales , no accessory muscle use Abdominal: soft, nontender to palpation, no guarding, no appreciable organomegaly Ext: no gross muscle atrophy, no edema, no contractures Neuro: CN II-XI grossly intact, no focal neuro deficits Psych: Alert, oriented, appropriate affect - Labs CBC & Chem 7: 06/28/18 15:07 06/28/18 15:07 Assessment and Plan Assessment: Assessment 83 year old M with PMH of HTN and CKD presents to the ED after syncopal episode. Admitted for further workup of syncope. Plan 1. Syncope: Likely related to , seen on Echo. Trop < 0.01 x 1. Cardiology on consult - recommends MERRICK and Loop recorder. Telemetry monitoring. FU Cardiology , Orthostats in the AM 2. HTN: BP 144/79. Continue Amlodipine 10 QD, Lisinopril 40 QD. Monitor vitals, adjust medications as necessary. 3. CKD: BUN 21 Cr 1.32. Monitor and replace electrolytes. Avoid nephrotoxins. 4. ASCVD risk: Continue ASA and -statin.
[2018-06-30] MEDS ORDERED: HALOPERIDOL LACTATE 5 MG/ML 1 ML VIAL IVP PRN (19:40)
[2018-06-30] MEDS: MELATONIN 3 MG TABLET PO SCH (20:00)
[2018-06-30] MEDS: ATORVASTATIN 20 MG TAB PO SCH (20:00)
[2018-06-30] MEDS: ASPIRIN 81 MG PO SCH (20:00)
--- NOTE | 2018-07-01 03:46 | PN ---
PROGRESS NOTE This patient has been admitted with syncope. Clinically this patient's syncope appears to be vasovagal syncope. Patient has remained clinically stable. The patient has a murmur of aortic stenosis by transthoracic echocardiogram. Aortic stenosis appears to be mild to moderate but the 2nd heart sound is absent. In view of that, the patient will be evaluated with MERRICK as an outpatient. In view of the recurrent episodes of syncope, patient would have a tilt-table test as well as [QAMARKER monitor inserted to rule out any significant arrhythmia. This has been discussed with the . The patient can be discharged home today. MMODL / IJN: [id number] /
[2018-07-01 08:53] LABS: Albumin 3.6 g/dL (3.5-5.0); Calcium 10.3 mg/dL (8.4-10.2); Total Bilirubin 0.6 mg/dL (0.2-1.3); Total Protein 5.8 g/dL (6.3-8.2)
[2018-07-01] MEDS: LISINOPRIL 20 MG TAB PO SCH (09:05)
[2018-07-01] MEDS: amLODIPine 10 MG TAB PO SCH (09:05)
[2018-07-01 09:29] LABS: Potassium 4.1 mmol/L (3.5-5.1)
[2018-07-01] MEDS ORDERED: SODIUM CHLORIDE 0.9% 1,000 ML IV SCH ×2 (11:45)
--- NOTE | 2018-07-01 11:59 | P.PN ---
Subjective Progress Note Date: 07/01/18 Principal diagnosis: syncopal episode Patient was seen and examined. No acute events overnight. No dizziness. Vital signs stable. Objective - Vital Signs Vital signs: Vital Signs Temp 97.8 F 07/01/18 08:00 Pulse 83 07/01/18 08:00 Resp 16 07/01/18 08:00 BP 121/62 07/01/18 08:00 Pulse Ox 94 L 07/01/18 08:00 Intake & Output 06/30/18 07/01/18 07/01/18 18:59 06:59 18:59 Intake Total 600 10 480 Balance 600 10 480 Weight 85.3 kg Intake: IV 10 0.9 10 Oral 600 480 Other: Voiding Method Toilet Toilet # Voids 1 - Exam General: non toxic, no distress, appears at stated age Derm: warm, dry Head: atraumatic, normocephalic, symmetric, Well healing scar over the L eye Eyes: EOMI, no lid lag, anicteric sclera Mouth: no lip lesion, mucus membranes moist Cardiovascular: S1S2 reg, no murmur, positive posterior tibial pulse bilateral, Lungs: CTA bilateral, no rhonchi, no rales , no accessory muscle use Abdominal: soft, nontender to palpation, no guarding, no appreciable organomegaly Ext: no gross muscle atrophy, no edema, no contractures Neuro: CN II-XI grossly intact, no focal neuro deficits Psych: Alert, oriented, appropriate affect - Labs CBC & Chem 7: 06/28/18 15:07 07/01/18 08:18 Labs: Abnormal Lab Results - Last 24 Hours (Table) 07/01/18 Range/Units 08:18 Chloride 108 H (98-107) mmol/L Calcium 10.3 H (8.4-10.2) mg/dL Total Protein 5.8 L (6.3-8.2) g/dL Assessment and Plan Assessment: Assessment 83 year old M with PMH of HTN and CKD presents to the ED after syncopal episode. Admitted for further workup of syncope. Plan 1. Syncope: Unknown etiology but resolved. Echo shows mild , EF 55-60%. Trop < 0.01 x 1. Discussed with Dr. Mccain, unlikely as it is mild, will arrange for Loop recorder and Tilt table test for Monday. Telemetry monitoring. FU Cardiology, Orthostats 2. HTN: BP 121/62. Continue Amlodipine 10 QD, Lisinopril 40 QD. Monitor vitals, adjust medications as necessary. 3. MASHA: Resolved. Cr 1.32 to 1.19. Avoid nephrotoxins. Cut down on IVF. 4. ASCVD risk: Continue ASA 81 mg PO QD, Lipitor 20 mg PO QHS.
[2018-07-01] MEDS: SODIUM CHLORIDE 0.9% 1,000 ML IV SCH (13:20)
[2018-07-01] MEDS: ASPIRIN 81 MG PO SCH (20:21)
[2018-07-01] MEDS: MELATONIN 3 MG TABLET PO SCH (20:21)
[2018-07-01] MEDS: ATORVASTATIN 20 MG TAB PO SCH (20:21)
--- NOTE | 2018-07-02 04:23 | PN ---
PROGRESS NOTE This patient was admitted with syncope. Patient's history suggestive of vasovagal syncope. In view of the recurrent episodes of the syncope, the patient will be scheduled for a tilt table test as well as the loop monitor placement. Blood pressure is 127/75 mmHg, heart S1 and S2 is normal. Lungs are clinically clear to auscultation and percussion. Patient's hemoglobin is 13.1, BUN and creatinine were normal. We will continue the current medications and patient is scheduled for a loop monitor and tilt-table test tomorrow. MMODL / IJN: [id number] /
[2018-07-02 05:34] VITALS: RESP 16
[2018-07-02] MEDS: SODIUM CHLORIDE 0.9% 1,000 ML IV SCH (06:01)
[2018-07-02 07:47] VITALS: PULSE 77
[2018-07-02] MEDS: amLODIPine 10 MG TAB PO SCH (08:05)
[2018-07-02] MEDS: LISINOPRIL 20 MG TAB PO SCH (08:05)
[2018-07-02] MEDS ORDERED: SODIUM CHLORIDE 0.9% 1,000 ML IV ONE (12:12)
--- NOTE | 2018-07-02 13:34 | P.PCN ---
Preoperative Diagnosis: Diagnosis Recurrent syncope Referred by Dr. VC Mccain for tilt table test Twelve-lead ECG, inpatient, shows sinus rhythm normal [place] narrow QRS normal ST segments with a mildly prolonged [place] interval of 222 ms Tilt table test per protocol Baseline blood pressure 160/80 mmHg Baseline heart rate 77 beats a minute patient was tilted upright at 90 was 70 per protocol. There was a gradual but progressive drop in his blood pressure with a slight increase in heart rate to a maximal 93 beats a minute following which the blood pressure was not recordable by a standard cuff but was recorded by noninvasive BP monitoring, [employer] system. A low blood pressure of 57 mmHg was recorded when he started yawning. At no point did he lose consciousness no bradycardia noted Impression Orthostatic hypotension syndrome Mildly [place] interval
[2018-07-02] MEDS ORDERED: ceFAZolin IN SWFI 2 GM/20 ML SYRINGE IVP STA (13:35)
[2018-07-02] MEDS ORDERED: IV FLUID CONTINUATION 1,000 ML IV ONE (13:54)
[2018-07-02] MEDS ORDERED: fentaNYL (PF) 50 MCG/ML 2 ML AMP ONE (13:56)
[2018-07-02] MEDS ORDERED: LIDOCAINE 1% INJ 10MG/ML (20 ML MDV) ONE (14:18)
[2018-07-02] MEDS ORDERED: fentaNYL (PF) 50 MCG/ML 2 ML AMP IVP ONE (14:18)
[2018-07-02] MEDS ORDERED: LIDOCAINE 1% INJ 10MG/ML (20 ML MDV) SQ ONE (14:20)
--- NOTE | 2018-07-02 14:25 | P.PCN ---
Preoperative Diagnosis: Loop monitor implant, referred by Dr. VC Mccain Primary physicians: Dr. Childress Chief Radiation Therapist: Dr. Mccain Indication: Recurrent syncope Patient was brought to the EP lab in a fasting state. Written informed consent was obtained prior to the procedure. The left pectoral area was prepped and draped per protocol. Intravenous antibiotic was administered preoperatively. A subcutaneous Loop monitor was implanted successfully and the wound was closed per protocol. The device was programmed to detect significant van- arrhythmic and tachy-arrhythmic events, per protocol. Device and programming details: Syncope protocol programmed Patient underwent EP procedure under conscious sedation/moderate sedation, monitoring of the level of consciousness and physiologic parameters including but not limited to vital signs and oxygenation. Patient tolerated the procedure well without any acute complications. Start time: 1419 Stop time: 1425
--- NOTE | 2018-07-02 15:04 | P.PN ---
Subjective Progress Note Date: 07/02/18 Principal diagnosis: dizziness Patient was seen and examined. No acute events were noted. Objective - Vital Signs Vital signs: Vital Signs Temp 97.0 F L 07/02/18 07:42 Pulse 77 07/02/18 07:42 Resp 16 07/02/18 07:42 BP 158/75 07/02/18 07:42 Pulse Ox 94 L 07/02/18 07:42 Intake & Output 07/01/18 07/02/18 07/02/18 18:59 06:59 18:59 Intake Total 960 550 Balance 960 550 Weight 84.3 kg Intake: IV 550 0.9 550 Oral 960 Other: Voiding Method Toilet # Voids 1 1 1 # Bowel Movements 1 - Exam General: non toxic, no distress, appears at stated age Derm: warm, dry Head: atraumatic, normocephalic, symmetric, Well healing scar over the L eye Eyes: EOMI, no lid lag, anicteric sclera Mouth: no lip lesion, mucus membranes moist Cardiovascular: S1S2 reg, no murmur, positive posterior tibial pulse bilateral, Lungs: CTA bilateral, no rhonchi, no rales , no accessory muscle use Abdominal: soft, nontender to palpation, no guarding, no appreciable organomegaly Ext: no gross muscle atrophy, no edema, no contractures Neuro: CN II-XI grossly intact, no focal neuro deficits Psych: Alert, oriented, appropriate affect - Labs CBC & Chem 7: 06/28/18 15:07 07/01/18 08:18 Assessment and Plan Assessment: Assessment 83 year old M with PMH of HTN and CKD presents to the ED after syncopal episode. Admitted for further workup of syncope. Plan 1. Syncope: Unknown etiology but resolved. Echo shows mild , EF 55-60%. Trop < 0.01 x 1. Telemetry monitoring. For Loop recorder and Tilt Table test today. FU Cardiology, Orthostats 2. HTN: BP 158/75. Continue Amlodipine 10 QD, Lisinopril 40 QD. Monitor vitals, adjust medications as necessary. 3. MASHA: Resolved. Cr 1.32 to 1.19. Avoid nephrotoxins. Cut down on IVF. 4. ASCVD risk: Continue ASA 81 mg PO QD, Lipitor 20 mg PO QHS. 5. Agitation: Haldol 0.25 mg IV PRN. Try re-orientation first. Window side bed. Case was discussed with Dr. Mccain, cardiology. Tilt table test positive for orthostatics. Recommend that patient go home on fludrocortisone 0.1 mg by mouth daily. Patient was cleared for discharge from a cardiology perspective. Patient was advised follow-up with Dr. Mccain in one week to arrange for MERRICK and analyze loop recorder.
[2018-07-02 15:06] VITALS: BP 184/88; TEMP 97.5
[2018-07-03] MEDS ORDERED: FLUDROCORTISONE 0.1 MG TAB PO SCH (09:00)
== END 2018-07-02 17:49 | disposition home or self-care (01) | DRG 262 ==
LOC: EC 14:44 → 6SEL 17:15
PROVIDERS: ADMIT Hospitalist; ATTEND Hospitalist
PROC: 3E0234Z Introduction of Serum, Toxoid and Vaccine into Muscle, Percutaneous Approach (ICD-10-PCS; principal; 2018-06-28)
PROC: 0HQ1XZZ Repair Face Skin, External Approach (ICD-10-PCS; principal; 2018-06-28)
PROC: 4A02XFZ Measurement of Cardiac Rhythm, External Approach (ICD-10-PCS; 2018-07-02)
PROC: 0JH602Z Insertion of Monitoring Device into Chest Subcutaneous Tissue and Fascia, Open Approach (ICD-10-PCS; 2018-07-02)
PROC: 4A03XB1 Measurement of Arterial Pressure, Peripheral, External Approach (ICD-10-PCS; 2018-07-02)
DX: I95.1 Orthostatic hypotension (principal); E78.5 Hyperlipidemia, unspecified; F02.80 Dementia in other diseases classified elsewhere, unspecified severity, without behavioral disturbance, psychotic disturbance, mood disturbance, and anxiety; G30.9 Alzheimer's disease, unspecified; I12.9 Hypertensive chronic kidney disease with stage 1 through stage 4 chronic kidney disease, or unspecified chronic kidney disease; I35.0 Nonrheumatic aortic (valve) stenosis; I44.0 Atrioventricular block, first degree; N18.3 Chronic kidney disease, stage 3 (moderate); S09.90XA Unspecified injury of head, initial encounter; R40.2362 Coma scale, best motor response, obeys commands, at arrival to emergency department; R40.2142 Coma scale, eyes open, spontaneous, at arrival to emergency department; R40.2242 Coma scale, best verbal response, confused conversation, at arrival to emergency department; W19.XXXA Unspecified fall, initial encounter; Z79.899 Other long term (current) drug therapy; Z82.49 Family history of ischemic heart disease and other diseases of the circulatory system; Z87.891 Personal history of nicotine dependence; Z96.653 Presence of artificial knee joint, bilateral; Z79.82 Long term (current) use of aspirin; S01.81XA Laceration without foreign body of other part of head, initial encounter
CPT/HCPCS: 36415; 70450; 71046; 72125; 80053; 82550; 82553; 84484; 85025; 85610; 85730; 90471; 90715; 93005; 93306; 96360; 96361; 96372; 99285

== ENCOUNTER 2019-02-02 10:45 | Emergency (ER) | payer MEDICARE, BC ==
[2019-02-02] MEDS ORDERED: SODIUM CHLORIDE 0.9% 1,000 ML IV STA (10:52)
[2019-02-02 10:57] VITALS: TEMP 98.1
--- NOTE | 2019-02-02 11:18 | ED ---
Altered Mental Status HPI - General Stated Complaint: AMS Time Seen by Provider: 02/02/19 10:48 Source: patient, RN notes reviewed, old records reviewed Mode of arrival: EMS Limitations: no limitations - History of Present Illness Initial Comments: This is an 83-year-old male the ER for evaluation. Patient is here for evaluation of dementia. Patient does have history of Alzheimer's dementia. Patient was found down in his bathroom this morning with an unknown downtime. Patient's a poor historian, limited history is obtained from the could all she knows is that she follow down the ground and he is not making coherent sentences. But he states he normally does not make coherent sentences. Patient himself asked no complaints MD Complaint: altered mental status, decreased responsiveness -: days(s) Severity: moderate Consistency of Symptoms: waxing and waning, getting worse Context: history of similar presentation Associated Symptoms: weakness - Related Data Home Medications Medication Instructions Recorded Confirmed Aspirin EC [Ecotrin Low Dose] 81 mg PO HS 04/30/16 02/02/19 [place]-3 Fatty Acids/Fish Oil [Fish 1 cap PO BID 04/30/16 02/02/19 Oil 1,000 mg Softgel] Simvastatin [Zocor] 20 mg PO HS 04/30/16 02/02/19 Vitamin E 100 unit PO HS 04/30/16 02/02/19 Cholecalciferol [Vitamin D3] 1,000 unit PO BID 06/28/18 02/02/19 LORazepam [Ativan] 0.5 mg PO TID 06/28/18 02/02/19 Multivitamins, Thera [Multivitamin 1 tab PO BID 06/28/18 02/02/19 (formulary)] Benazepril HCl 40 mg PO DAILY 02/02/19 02/02/19 QUEtiapine [SEROquel] 50 mg PO HS 02/02/19 02/02/19 Previous Rx's Medication Instructions Recorded Lisinopril [Zestril] 20 mg PO DAILY #30 tab 07/02/18 Allergies Allergy/AdvReac Type Severity Reaction Status Date / Time No Known Allergies Allergy Verified 02/02/19 11:04 Review of Systems ROS Statement: Those systems with pertinent positive or pertinent negative responses have been documented in the HPI. ROS Other: All systems not noted in ROS Statement are negative. Past Medical History Past Medical History: Dementia, Hyperlipidemia, Hypertension, Liver Disease Additional Past Medical History / Comment(s): Murmur since childhood History of Any Multi-Drug Resistant Organisms: None Reported Past Surgical History: Unable to Obtain Additional Past Surgical History / Comment(s): bilateral knee replacement, r shoulder surgery, cardic monitior Past Anesthesia/Blood Transfusion Reactions: No Reported Reaction Past Psychological History: No Psychological Hx Reported Smoking Status: Former smoker - Past Family History Mother Family Medical History: Cancer Father Family Medical History: Myocardial Infarction (OR) General Exam Limitations: altered mental status General appearance: alert, lethargic Head exam: Present: atraumatic, normocephalic, normal inspection Eye exam: Present: normal appearance, PERRL, EOMI. Absent: scleral icterus, conjunctival injection, periorbital swelling ENT exam: Present: normal exam, mucous membranes moist Neck exam: Present: normal inspection. Absent: tenderness, meningismus, lymphadenopathy Respiratory exam: Present: normal lung sounds bilaterally. Absent: respiratory distress, wheezes, rales, rhonchi, stridor Cardiovascular Exam: Present: regular rate, normal rhythm, normal heart sounds. Absent: systolic murmur, diastolic murmur, rubs, gallop, clicks GI/Abdominal exam: Present: soft, normal bowel sounds. Absent: distended, tenderness, guarding, rebound, rigid Extremities exam: Present: normal inspection, full ROM, normal capillary refill. Absent: tenderness, pedal edema, joint swelling, calf tenderness Back exam: Present: normal inspection Neurological exam: Present: alert, oriented X3, CN II-XII intact Psychiatric exam: Present: normal affect, normal mood Skin exam: Present: warm, dry, intact, normal color. Absent: rash Course Vital Signs 02/02/19 02/02/19 02/02/19 10:52 11:00 11:30 Temperature 98.1 F Pulse Rate 90 93 86 Respiratory 18 18 16 Rate Blood Pressure 194/97 194/97 184/95 O2 Sat by Pulse 98 99 99 Oximetry 02/02/19 12:00 Temperature Pulse Rate 84 Respiratory 14 Rate Blood Pressure 178/91 O2 Sat by Pulse 97 Oximetry - Reevaluation(s) Reevaluation #1: 02/02/19 11:47 Medical record is reviewed Reevaluation #2: 02/02/19 14:47 patient is able to ambulate without significant difficulty Reevaluation #3: 02/02/19 14:47 Spoke with family regarding findings. Family is agreeable to take patient home Medical Decision Making - Medical Decision Making 83 male the ER found down. Weakness. No significant findings for patient's weakness. Patient can be discharged home as he is able to ambulate and all testing is normal at this point. - Lab Data Result diagrams: 02/02/19 11:28 02/02/19 11:28 Lab Results 02/02/19 02/02/19 02/02/19 Range/Units 11:28 11:28 11:28 WBC 20.4 H (3.8-10.6) k/uL RBC 4.27 L (4.30-5.90) m/uL Hgb 13.6 (13.0-17.5) gm/dL Hct 41.8 (39.0-53.0) % MCV 97.9 (80.0-100.0) fL MCH 31.9 (25.0-35.0) pg MCHC 32.6 (31.0-37.0) g/dL RDW 12.6 (11.5-15.5) % Plt Count 282 (150-450) k/uL Neutrophils % 91 % Lymphocytes % 3 % Monocytes % 4 % Eosinophils % 0 % Basophils % 0 % Neutrophils # 18.6 H (1.3-7.7) k/uL Lymphocytes # 0.7 L (1.0-4.8) k/uL Monocytes # 0.9 (0-1.0) k/uL Eosinophils # 0.1 (0-0.7) k/uL Basophils # 0.0 (0-0.2) k/uL PT 9.5 (9.0-12.0) sec INR 0.9 (<1.2) APTT 20.0 L (22.0-30.0) sec Sodium (137-145) mmol/L Potassium (3.5-5.1) mmol/L Chloride (98-107) mmol/L Carbon Dioxide (22-30) mmol/L Anion Gap mmol/L BUN (9-20) mg/dL Creatinine (0.66-1.25) mg/dL Est GFR (CKD-EPI)AfAm (>60 ml/min/1.73 sqM) Est GFR (CKD-EPI)NonAf (>60 ml/min/1.73 sqM) Glucose (74-99) mg/dL Plasma Lactic Acid Donte (0.7-2.0) mmol/L Calcium (8.4-10.2) mg/dL Phosphorus (2.5-4.5) mg/dL Magnesium (1.6-2.3) mg/dL Total Bilirubin (0.2-1.3) mg/dL AST (17-59) U/L ALT (21-72) U/L Alkaline Phosphatase (38-126) U/L Troponin I 0.017 (0.000-0.034) ng/mL Total Protein (6.3-8.2) g/dL Albumin (3.5-5.0) g/dL Urine Color Urine Appearance (Clear) Urine pH (5.0-8.0) Ur Specific [place] (1.001-1.035) Urine Protein (Negative) Urine Glucose (UA) (Negative) Urine Ketones (Negative) Urine Blood (Negative) Urine Nitrite (Negative) Urine Bilirubin (Negative) Urine Urobilinogen (<2.0) mg/dL Ur Leukocyte Esterase (Negative) Urine RBC (0-5) /hpf Urine WBC (0-5) /hpf Urine Mucus (None) /hpf Influenza Type A RNA (Not Detectd) Influenza Type B (PCR) (Not Detectd) 02/02/19 02/02/19 02/02/19 Range/Units 11:28 11:28 13:30 WBC (3.8-10.6) k/uL RBC (4.30-5.90) m/uL Hgb (13.0-17.5) gm/dL Hct (39.0-53.0) % MCV (80.0-100.0) fL MCH (25.0-35.0) pg MCHC (31.0-37.0) g/dL RDW (11.5-15.5) % Plt Count (150-450) k/uL Neutrophils % % Lymphocytes % % Monocytes % % Eosinophils % % Basophils % % Neutrophils # (1.3-7.7) k/uL Lymphocytes # (1.0-4.8) k/uL Monocytes # (0-1.0) k/uL Eosinophils # (0-0.7) k/uL Basophils # (0-0.2) k/uL PT (9.0-12.0) sec INR (<1.2) APTT (22.0-30.0) sec Sodium 139 (137-145) mmol/L Potassium 4.7 (3.5-5.1) mmol/L Chloride 106 (98-107) mmol/L Carbon Dioxide 23 (22-30) mmol/L Anion Gap 10 mmol/L BUN 20 (9-20) mg/dL Creatinine 1.14 (0.66-1.25) mg/dL Est GFR (CKD-EPI)AfAm 68 (>60 ml/min/1.73 sqM) Est GFR (CKD-EPI)NonAf 59 (>60 ml/min/1.73 sqM) Glucose 96 (74-99) mg/dL Plasma Lactic Acid Donte 1.8 (0.7-2.0) mmol/L Calcium 11.0 H (8.4-10.2) mg/dL Phosphorus 2.1 L (2.5-4.5) mg/dL Magnesium 2.1 (1.6-2.3) mg/dL Total Bilirubin 0.9 (0.2-1.3) mg/dL AST 50 (17-59) U/L ALT 27 (21-72) U/L Alkaline Phosphatase 152 H (38-126) U/L Troponin I (0.000-0.034) ng/mL Total Protein 6.6 (6.3-8.2) g/dL Albumin 3.9 (3.5-5.0) g/dL Urine Color Yellow Urine Appearance Clear (Clear) Urine pH 5.5 (5.0-8.0) Ur Specific [place] 1.013 (1.001-1.035) Urine Protein Trace H (Negative) Urine Glucose (UA) Negative (Negative) Urine Ketones Negative (Negative) Urine Blood Trace H (Negative) Urine Nitrite Negative (Negative) Urine Bilirubin Negative (Negative) Urine Urobilinogen <2.0 (<2.0) mg/dL Ur Leukocyte Esterase Negative (Negative) Urine RBC 1 (0-5) /hpf Urine WBC 1 (0-5) /hpf Urine Mucus Few H (None) /hpf Influenza Type A RNA (Not Detectd) Influenza Type B (PCR) (Not Detectd) 02/02/19 Range/Units 13:30 WBC (3.8-10.6) k/uL RBC (4.30-5.90) m/uL Hgb (13.0-17.5) gm/dL Hct (39.0-53.0) % MCV (80.0-100.0) fL MCH (25.0-35.0) pg MCHC (31.0-37.0) g/dL RDW (11.5-15.5) % Plt Count (150-450) k/uL Neutrophils % % Lymphocytes % % Monocytes % % Eosinophils % % Basophils % % Neutrophils # (1.3-7.7) k/uL Lymphocytes # (1.0-4.8) k/uL Monocytes # (0-1.0) k/uL Eosinophils # (0-0.7) k/uL Basophils # (0-0.2) k/uL PT (9.0-12.0) sec INR (<1.2) APTT (22.0-30.0) sec Sodium (137-145) mmol/L Potassium (3.5-5.1) mmol/L Chloride (98-107) mmol/L Carbon Dioxide (22-30) mmol/L Anion Gap mmol/L BUN (9-20) mg/dL Creatinine (0.66-1.25) mg/dL Est GFR (CKD-EPI)AfAm (>60 ml/min/1.73 sqM) Est GFR (CKD-EPI)NonAf (>60 ml/min/1.73 sqM) Glucose (74-99) mg/dL Plasma Lactic Acid Donte (0.7-2.0) mmol/L Calcium (8.4-10.2) mg/dL Phosphorus (2.5-4.5) mg/dL Magnesium (1.6-2.3) mg/dL Total Bilirubin (0.2-1.3) mg/dL AST (17-59) U/L ALT (21-72) U/L Alkaline Phosphatase (38-126) U/L Troponin I (0.000-0.034) ng/mL Total Protein (6.3-8.2) g/dL Albumin (3.5-5.0) g/dL Urine Color Urine Appearance (Clear) Urine pH (5.0-8.0) Ur Specific [place] (1.001-1.035) Urine Protein (Negative) Urine Glucose (UA) (Negative) Urine Ketones (Negative) Urine Blood (Negative) Urine Nitrite (Negative) Urine Bilirubin (Negative) Urine Urobilinogen (<2.0) mg/dL Ur Leukocyte Esterase (Negative) Urine RBC (0-5) /hpf Urine WBC (0-5) /hpf Urine Mucus (None) /hpf Influenza Type A RNA Not Detected (Not Detectd) Influenza Type B (PCR) Not Detected (Not Detectd) - EKG Data -: EKG Interpreted by Me (EKG shows sinus rhythm rate of 88, MS 198, QRS 96, QTc 445) - Radiology Data Radiology results: report reviewed (Chest x-ray pelvis x-ray CT brain C-spine negative for acute disease), image reviewed Disposition Clinical Impression: Weakness, Altered mental status Disposition: HOME SELF-CARE Condition: Good Instructions (If sedation given, give patient instructions): Weakness (ED) Is patient prescribed a controlled substance at d/c from ED?: No Referrals: Ashutosh Childress MD [Primary Care Provider] - 1-2 days
[2019-02-02 11:49] LABS: Basophils % (A) 0 %; Eosinophils # (A) 0.1 k/uL (0-0.7); Eosinophils % (A) 0 %; HCT 41.8 % (39.0-53.0); HGB 13.6 gm/dL (13.0-17.5); Lymphocytes # (A) 0.7 k/uL (1.0-4.8); Lymphocytes % (A) 3 %; MCH 31.9 pg (25.0-35.0); MCHC 32.6 g/dL (31.0-37.0); MCV 97.9 fL (80.0-100.0); Mean Platelet Volume 6.6; Monocytes # (A) 0.9 k/uL (0-1.0); Monocytes % (A) 4 %; Neutrophils # (A) 18.6 k/uL (1.3-7.7); Neutrophils % (A) 91 %; Platelet Count 282 k/uL (150-450); RBC 4.27 m/uL (4.30-5.90); RDW 12.6 % (11.5-15.5); WBC 20.4 k/uL (3.8-10.6)
[2019-02-02 12:04] LABS: Albumin 3.9 g/dL (3.5-5.0); Phosphorus 2.1 mg/dL (2.5-4.5); Total Bilirubin 0.9 mg/dL (0.2-1.3); Total Protein 6.6 g/dL (6.3-8.2)
[2019-02-02 12:06] LABS: Magnesium 2.1 mg/dL (1.6-2.3); Potassium 4.7 mmol/L (3.5-5.1)
[2019-02-02 12:08] LABS: INR 0.9 (<1.2); Prothrombin Time 9.5 sec (9.0-12.0)
--- NOTE | 2019-02-02 12:40 | CT ---
EXAMINATION TYPE: CT brain meagan ross DATE OF EXAM: 02/02/2019 COMPARISON: Previous study dated 06/28/2018. HISTORY: Patient found on ground by family. 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 TECHNIQUE: CT scan of the head and cervical spine are performed without contrast. FINDINGS: BRAIN: There are generalized changes of sulcal prominence and ventriculomegaly, compatible with atrop hy. There is diffuse periventricular white matter lucency, compatible with chronic ischemic change. T here is some calcification of the right basal ganglia. No other focal lesion, mass effect or midline shift is seen. I do not see evidence of intracranial blood. There is mucoperiosteal thickening involving the left maxillary sinus. The remainder of the paranasal sinuses are clear. There is some fluid in the right mastoid air cells. The bony calvarium is intact. IMPRESSION: 1. NO ACUTE INTRACRANIAL ABNORMALITY. 2. MILD ATROPHIC AND ISCHEMIC CHANGE. 3. SINUS MUCOSAL DISEASE. 4. EVIDENCE OF ACUTE RIGHT-SIDED MASTOIDITIS. CERVICAL SPINE: There is emphysematous changes within the visualized portions of the lungs. Prevertebral soft tissues are unremarkable. There is a loss of the normal cervical lordosis. Alignment remains normal. Atlantoaxial relationships are normal. There is a small central protrusion at C2-3. No other protrusions are seen. There is dis c space loss and hypertrophic spondylosis present at virtually all levels with relative sparing of th e C2-3 level. This is most marked at C6-7. There is uncovertebral joint disease which is also most ma rked at this level. There is facet arthropathy on the left at C3-4 and C4-5 and on the right at C5-6. There is a central spur present at C7-T1 No fractures are seen. IMPRESSION: 1. NO ACUTE OSSEOUS LESION. 2. MODERATELY SEVERE DEGENERATIVE CHANGE. 3. SMALL CENTRAL PROTRUSION, C2-3. 4. CENTRAL SPUR, C6-7. 5. EMPHYSEMATOUS CHANGES WITHIN THE LUNGS.
--- NOTE | 2019-02-02 12:42 | XR ---
EXAMINATION TYPE: XR chest 1V DATE OF EXAM: 02/02/2019 HISTORY: Pain. REFERENCE: Previous study dated 06/28/2018. FINDINGS: The heart is mildly prominent. The lungs are clear. Pleural space are clear. There is a chr onically widened superior mediastinum. IMPRESSION: 1. MILD CARDIOMEGALY. 2. NO ACUTE INTRATHORACIC ABNORMALITY.
--- NOTE | 2019-02-02 12:43 | XR ---
EXAMINATION TYPE: XR pelvis AP view , ONE VIEW DATE OF EXAM ORDERED: 02/02/2019 HISTORY: Pain following trauma. COMPARISON: None. FINDINGS: There are degenerative changes in the lower lumbar spine. No fracture or dislocation is se en. There are mild degenerative changes present in both hips. IMPRESSION: 1. NO ACUTE OSSEOUS LESION. 2. DEGENERATIVE CHANGE.
[2019-02-02 12:54] VITALS: BP 178/91; PULSE 84; RESP 14
[2019-02-02 13:56] LABS: Appearance,Urine Clear (Clear); Bilirubin,Urine Negative (Negative); Blood,Urine Trace (Negative); Color,Urine Yellow; Glucose,Urine (UA) Negative (Negative); Ketones,Urine Negative (Negative); Leukocyte Esterase,Urine Negative (Negative); Mucus,Urine Few /hpf; Nitrite,Urine Negative (Negative); PH, Urine 5.5 (5.0-8.0); Protein,Urine Trace (Negative); RBC,Urine 1 /hpf (0-5); Specific Gravity,Urine 1.013 (1.001-1.035); Urobilinogen,Urine <2.0 mg/dL (<2.0); WBC,Urine 1 /hpf (0-5)
== END 2019-02-02 15:46 | disposition home or self-care (01) ==
LOC: EC 10:45
DX: R41.82 Altered mental status, unspecified (principal); R53.1 Weakness; G30.9 Alzheimer's disease, unspecified; F02.80 Dementia in other diseases classified elsewhere, unspecified severity, without behavioral disturbance, psychotic disturbance, mood disturbance, and anxiety; E78.5 Hyperlipidemia, unspecified; I10 Essential (primary) hypertension; Z87.891 Personal history of nicotine dependence; Z96.653 Presence of artificial knee joint, bilateral; Z98.890 Other specified postprocedural states; Z79.82 Long term (current) use of aspirin; Z79.899 Other long term (current) drug therapy
CPT/HCPCS: 36415; 51701; 70450; 71045; 72125; 72170; 80053; 81001; 83605; 83735; 84100; 84484; 85025; 85610; 85730; 87086; 87502; 93005; 96360; 99285

== ENCOUNTER 2019-02-03 10:27 | Inpatient (IN) | payer MEDICARE, BC ==
[2019-02-03] MEDS ORDERED: SODIUM CHLORIDE 0.9% 500 ML 500 ML IV STA (11:10)
[2019-02-03] MEDS ORDERED: SODIUM CHLORIDE 0.9% 1,000 ML IV STA ×2 (11:10)
[2019-02-03 11:29] LABS: Basophils % (A) 0 %; Eosinophils # (A) 0.3 k/uL (0-0.7); Eosinophils % (A) 2 %; HCT 40.8 % (39.0-53.0); HGB 13.5 gm/dL (13.0-17.5); Lymphocytes # (A) 1.6 k/uL (1.0-4.8); Lymphocytes % (A) 12 %; MCH 32.6 pg (25.0-35.0); MCHC 33.1 g/dL (31.0-37.0); MCV 98.3 fL (80.0-100.0); Mean Platelet Volume 7.3; Monocytes # (A) 0.5 k/uL (0-1.0); Monocytes % (A) 4 %; Neutrophils % (A) 81 %; Platelet Count 309 k/uL (150-450); RBC 4.15 m/uL (4.30-5.90); RDW 12.9 % (11.5-15.5); WBC 13.5 k/uL (3.8-10.6)
--- NOTE | 2019-02-03 11:31 | ED ---
Altered Mental Status HPI - General Chief Complaint: Altered Mental Status Stated Complaint: Infection Source: patient, RN notes reviewed, old records reviewed Mode of arrival: ambulatory Limitations: no limitations - History of Present Illness Initial Comments: This is an 83-year-old male to the ER for evaluation. Patient is poor historian so history again is obtained by family. Patient denies any recent travel history or sick contacts. Family denies any recent sick contacts. No fevers. Patient was seen in emergency room yesterday. Patient is brought in again by family today is a state his mental status is deteriorated overnight. Patient is not able to perform his normal tasks of daily living. Is not eating is nauseous and vomiting. Patient was unable to answer any questions regards to pain MD Complaint: altered mental status -: days(s) Severity: severe Consistency of Symptoms: getting worse Context: history of similar presentation, recent fever Associated Symptoms: denies other symptoms - Related Data Home Medications Medication Instructions Recorded Confirmed Aspirin EC [Ecotrin Low Dose] 81 mg PO HS 04/30/16 02/03/19 [place]-3 Fatty Acids/Fish Oil [Fish 1 cap PO BID 04/30/16 02/03/19 Oil 1,000 mg Softgel] Simvastatin [Zocor] 20 mg PO HS 04/30/16 02/03/19 Vitamin E 100 unit PO HS 04/30/16 02/03/19 Cholecalciferol [Vitamin D3] 1,000 unit PO BID 06/28/18 02/03/19 LORazepam [Ativan] 0.5 mg PO TID 06/28/18 02/03/19 Multivitamins, Thera [Multivitamin 1 tab PO BID 06/28/18 02/03/19 (formulary)] Benazepril HCl 40 mg PO DAILY 02/02/19 02/03/19 QUEtiapine [SEROquel] 50 mg PO HS 02/02/19 02/03/19 Previous Rx's Medication Instructions Recorded Lisinopril [Zestril] 20 mg PO DAILY #30 tab 07/02/18 Allergies Allergy/AdvReac Type Severity Reaction Status Date / Time No Known Allergies Allergy Verified 02/03/19 11:03 Review of Systems ROS Statement: Those systems with pertinent positive or pertinent negative responses have been documented in the HPI. ROS Other: All systems not noted in ROS Statement are negative. Past Medical History Past Medical History: Dementia, Hyperlipidemia, Hypertension, Liver Disease Additional Past Medical History / Comment(s): Murmur since childhood History of Any Multi-Drug Resistant Organisms: None Reported Past Surgical History: Unable to Obtain Additional Past Surgical History / Comment(s): bilateral knee replacement, r s [place] surgery, cardic monitior Past Anesthesia/Blood Transfusion Reactions: No Reported Reaction Past Psychological History: No Psychological Hx Reported Smoking Status: Former smoker - Past Family History Mother Family Medical History: Cancer Father Family Medical History: Myocardial Infarction ([place]) General Exam Limitations: altered mental status General appearance: alert, in no apparent distress Head exam: Present: atraumatic, normocephalic, normal inspection Eye exam: Present: normal appearance, PERRL, EOMI. Absent: scleral icterus, conjunctival injection, periorbital swelling ENT exam: Present: normal exam, mucous membranes moist Neck exam: Present: normal inspection. Absent: tenderness, meningismus, lymphadenopathy Respiratory exam: Present: normal lung sounds bilaterally. Absent: respiratory distress, wheezes, rales, rhonchi, stridor Cardiovascular Exam: Present: regular rate, normal rhythm, normal heart sounds. Absent: systolic murmur, diastolic murmur, rubs, gallop, clicks GI/Abdominal exam: Present: soft, normal bowel sounds. Absent: distended, tenderness, guarding, rebound, rigid Extremities exam: Present: normal inspection, full ROM, normal capillary refill. Absent: tenderness, pedal edema, joint swelling, calf tenderness Back exam: Present: normal inspection Neurological exam: Present: alert, oriented X3, CN II-XII intact Psychiatric exam: Present: normal affect, normal mood Skin exam: Present: warm, dry, intact, normal color. Absent: rash Course Vital Signs 02/03/19 02/03/19 02/03/19 10:31 10:45 10:54 Temperature 97.9 F Pulse Rate 86 Respiratory 18 Rate Blood Pressure 156/86 O2 Sat by Pulse 91 L 94 L 98 Oximetry 02/03/19 11:50 Temperature 98.9 F Pulse Rate Respiratory Rate Blood Pressure O2 Sat by Pulse Oximetry - Reevaluation(s) Reevaluation #1: 02/03/19 14:40 Medical record and ER visit from yesterday are reviewed Reevaluation #2: 02/03/19 14:40 Spoke with sound physician, Dr. Aldana, not acceptable for admission due to not having neurology at this hospital 02/03/19 14:40 Discussed with that we do not think is the primary neuro, he still does not feel comfortable accepting patient Reevaluation #3: 02/03/19 14:[address] Cruz who is acceptable for admission Medical Decision Making - Medical Decision Making 83 male the ER for evaluation. Patient resents today for evaluation regards to altered mental status, patient is found to have pancreatitis, dehydration, and she'll be admitted for IV hydration and pain control as necessary. Nausea and m anagement. Patient also found to have bacteremia x-ray his urine likely for UTI. Patient be admitted for IV antibiotics - Lab Data Result diagrams: 02/03/19 10:54 02/03/19 10:54 Lab Results 02/03/19 02/03/19 02/03/19 Range/Units 10:54 10:54 10:54 WBC 13.5 H (3.8-10.6) k/uL RBC 4.15 L (4.30-5.90) m/uL Hgb 13.5 (13.0-17.5) gm/dL Hct 40.8 (39.0-53.0) % MCV 98.3 (80.0-100.0) fL MCH 32.6 (25.0-35.0) pg MCHC 33.1 (31.0-37.0) g/dL RDW 12.9 (11.5-15.5) % Plt Count 309 (150-450) k/uL Neutrophils % 81 % Lymphocytes % 12 % Monocytes % 4 % Eosinophils % 2 % Basophils % 0 % Neutrophils # 11.0 H (1.3-7.7) k/uL Lymphocytes # 1.6 (1.0-4.8) k/uL Monocytes # 0.5 (0-1.0) k/uL Eosinophils # 0.3 (0-0.7) k/uL Basophils # 0.0 (0-0.2) k/uL Sodium 139 (137-145) mmol/L Potassium 4.3 (3.5-5.1) mmol/L Chloride 109 H (98-107) mmol/L Carbon Dioxide 25 (22-30) mmol/L Anion Gap 5 mmol/L BUN 17 (9-20) mg/dL Creatinine 1.25 (0.66-1.25) mg/dL Est GFR (CKD-EPI)AfAm 61 (>60 ml/min/1.73 sqM) Est GFR (CKD-EPI)NonAf 53 (>60 ml/min/1.73 sqM) Glucose 94 (74-99) mg/dL Plasma Lactic Acid Donte 1.1 (0.7-2.0) mmol/L Calcium 10.5 H (8.4-10.2) mg/dL Phosphorus 2.6 (2.5-4.5) mg/dL Magnesium 2.1 (1.6-2.3) mg/dL Total Bilirubin 0.9 (0.2-1.3) mg/dL AST 64 H (17-59) U/L ALT 40 (21-72) U/L Alkaline Phosphatase 116 (38-126) U/L Troponin I (0.000-0.034) ng/mL Total Protein 5.9 L (6.3-8.2) g/dL Albumin 3.4 L (3.5-5.0) g/dL Lipase 575 H (23-300) U/L TSH 1.110 (0.465-4.680) mIU/L Urine Color Urine Appearance (Clear) Urine pH (5.0-8.0) Ur Specific [place] (1.001-1.035) Urine Protein (Negative) Urine Glucose (UA) (Negative) Urine Ketones (Negative) Urine Blood (Negative) Urine Nitrite (Negative) Urine Bilirubin (Negative) Urine Urobilinogen (<2.0) mg/dL Ur Leukocyte Esterase (Negative) Urine WBC (0-5) /hpf Urine Bacteria (None) /hpf Hyaline Casts (0-2) /lpf Urine Mucus (None) /hpf 02/03/19 02/03/19 Range/Units 10:54 11:44 WBC (3.8-10.6) k/uL RBC (4.30-5.90) m/uL Hgb (13.0-17.5) gm/dL Hct (39.0-53.0) % MCV (80.0-100.0) fL MCH (25.0-35.0) pg MCHC (31.0-37.0) g/dL RDW (11.5-15.5) % Plt Count (150-450) k/uL Neutrophils % % Lymphocytes % % Monocytes % % Eosinophils % % Basophils % % Neutrophils # (1.3-7.7) k/uL Lymphocytes # (1.0-4.8) k/uL Monocytes # (0-1.0) k/uL Eosinophils # (0-0.7) k/uL Basophils # (0-0.2) k/uL Sodium (137-145) mmol/L Potassium (3.5-5.1) mmol/L Chloride (98-107) mmol/L Carbon Dioxide (22-30) mmol/L Anion Gap mmol/L BUN (9-20) mg/dL Creatinine (0.66-1.25) mg/dL Est GFR (CKD-EPI)AfAm (>60 ml/min/1.73 sqM) Est GFR (CKD-EPI)NonAf (>60 ml/min/1.73 sqM) Glucose (74-99) mg/dL Plasma Lactic Acid Donte (0.7-2.0) mmol/L Calcium (8.4-10.2) mg/dL Phosphorus (2.5-4.5) mg/dL Magnesium (1.6-2.3) mg/dL Total Bilirubin (0.2-1.3) mg/dL AST (17-59) U/L ALT (21-72) U/L Alkaline Phosphatase (38-126) U/L Troponin I 0.027 (0.000-0.034) ng/mL Total Protein (6.3-8.2) g/dL Albumin (3.5-5.0) g/dL Lipase (23-300) U/L TSH (0.465-4.680) mIU/L Urine Color Yellow Urine Appearance Clear (Clear) Urine pH 5.5 (5.0-8.0) Ur Specific [place] 1.013 (1.001-1.035) Urine Protein Negative (Negative) Urine Glucose (UA) Negative (Negative) Urine Ketones Negative (Negative) Urine Blood Negative (Negative) Urine Nitrite Positive (Negative) Urine Bilirubin Negative (Negative) Urine Urobilinogen <2.0 (<2.0) mg/dL Ur Leukocyte Esterase Negative (Negative) Urine WBC 3 (0-5) /hpf Urine Bacteria Many H (None) /hpf Hyaline Casts 1 (0-2) /lpf Urine Mucus Occasional H (None) /hpf - Radiology Data Radiology results: report reviewed (Chest x-rays negative for acute disease and ultrasound gallbladder negative for acute disease), image reviewed Disposition Clinical Impression: Syncope, Weakness, Altered mental status, UTI (urinary tract infection), Pancreatitis, Dementia Disposition: ADMITTED IP TO THIS [facility] Condition: Good Is patient prescribed a controlled substance at d/c from ED?: No Referrals: Ashutosh Childress MD [Primary Care Provider] - 1-2 days
[2019-02-03 11:40] LABS: Albumin 3.4 g/dL (3.5-5.0); Calcium 10.5 mg/dL (8.4-10.2); Magnesium 2.1 mg/dL (1.6-2.3); Phosphorus 2.6 mg/dL (2.5-4.5); Potassium 4.3 mmol/L (3.5-5.1); Total Bilirubin 0.9 mg/dL (0.2-1.3); Total Protein 5.9 g/dL (6.3-8.2)
[2019-02-03 12:02] LABS: Appearance,Urine Clear (Clear); Bacteria,Urine Many /hpf; Bilirubin,Urine Negative (Negative); Blood,Urine Negative (Negative); Color,Urine Yellow; Glucose,Urine (UA) Negative (Negative); Hyaline Casts,Urine 1 /lpf (0-2); Ketones,Urine Negative (Negative); Leukocyte Esterase,Urine Negative (Negative); Mucus,Urine Occasional /hpf; Nitrite,Urine Positive (Negative); PH, Urine 5.5 (5.0-8.0); Protein,Urine Negative (Negative); Specific Gravity,Urine 1.013 (1.001-1.035); Urobilinogen,Urine <2.0 mg/dL (<2.0)
--- NOTE | 2019-02-03 12:38 | XR ---
EXAMINATION TYPE: XR chest 2V DATE OF EXAM: 02/03/2019 COMPARISON: Prior chest x-ray 02/02/2019 HISTORY: Weakness and shortness of breath TECHNIQUE: Frontal and lateral views of the chest are obtained. FINDINGS: There is no pneumothorax. Question some minimal patchy basilar density in the retrocardiac region. The cardiac silhouette size is within normal limits. Patient is rotated. Aorta appears ectat ic as on prior. There are cardiac leads. The osseous structures are intact. IMPRESSION: There may be left lower lobe atelectasis versus pneumonia. Rotated exam. Follow-up sugge sted. Additional findings above.
--- NOTE | 2019-02-03 13:23 | US ---
EXAMINATION TYPE: US gallbladder DATE OF EXAM: 02/03/2019 COMPARISON: NONE CLINICAL HISTORY: Pain. Patient slept through exam, RUQ tenderness on physician exam EXAM MEASUREMENTS: Liver Length: 16.1 cm Gallbladder Wall: 0.2 cm CBD: 0.7 cm Right Kidney: 11.1 x 5.8 x 5.3 cm overlying bowel gas limits exam Pancreas: not seen due to bowel gas Liver: intercostal imaging shows small posterior right lobe cyst = 1.9cm Gallbladder: wnl Evidence for sonographic Bradales's sign: no CBD: upper limits of normal Right Kidney: There is some cortical thinning, no hydronephrosis. IMPRESSION: Exam is limited. Simple cyst associated with the liver. Additional findings above.
[2019-02-03] MEDS ORDERED: LORazepam 2 MG/ML INJ IV PRN (18:00)
[2019-02-03] MEDS: LISINOPRIL 20 MG TAB PO SCH (18:12)
[2019-02-03] MEDS ORDERED: NON-FORMULARY DRUG (Omega-3 Fatty Acids/Fish Oil [Fish Oil 1,000 Mg Softgel] 1 CAP) PO SCH (21:00)
[2019-02-03] MEDS: QUEtiapine 50 MG TAB PO SCH (21:02)
[2019-02-03] MEDS: ASPIRIN 81 MG PO SCH (21:02)
[2019-02-03] MEDS: VITAMIN E (DL,TOCOPHERYL ACET) 400 UNIT CAP PO SCH (21:02)
[2019-02-03] MEDS: ATORVASTATIN 10 MG TAB PO SCH (21:02)
[2019-02-03] MEDS: CHOLECALCIFEROL 1,000 UNIT TAB PO SCH (21:02)
--- NOTE | 2019-02-04 07:25 | XR ---
EXAMINATION TYPE: XR chest 1V DATE OF EXAM: 02/04/2019 COMPARISON: 02/03/2019 HISTORY: 83-year-old male pneumonia follow-up TECHNIQUE: Single frontal view of the chest is obtained. FINDINGS: Heart borderline enlarged. Mild diffuse interstitial prominence. Some patchy left basilar opacity rem ains. Loop recorder device projecting over the left heart margin. IMPRESSION: Stable patchy left basilar atelectasis and/or infiltrate, possible trace effusion.
[2019-02-04] MEDS: MULTIVITAMINS, THERA 1 EACH TAB PO SCH (07:44)
[2019-02-04] MEDS: ENOXAPARIN 40 MG/0.4 ML SYRINGE SQ SCH (07:44)
[2019-02-04] MEDS: CHOLECALCIFEROL 1,000 UNIT TAB PO SCH ×2 (07:44→19:48)
[2019-02-04] MEDS: LISINOPRIL 20 MG TAB PO SCH (07:44)
--- NOTE | 2019-02-04 08:28 | CONS ---
CONSULTATION Mr. Thornton is an 83-year-old male who was admitted through the emergency room with change of mental status. The history is obtained from the . The patient has history of advanced Alzheimer's dementia. He is followed by Dr. Nicole Mccain on a regular basis. The day before yesterday he was seen in the emergency room after being found on the ground in his bathroom. His workup at that time only showed elevation of his white blood cells. The patient had a prior history of syncope in June of 2018. At that time underwent a loop recorder placement as well as an echocardiogram revealed preserved left ventricular size and systolic function with mild aortic stenosis. He is limited in his physical activity. He has chronic dementia. Yesterday, he became more combative, unable to cooperate with his and she brought him into the emergency room. There is no clear documentation of change in his breathing or chest discomfort or significant peripheral edema. He had no documented syncope, no palpitation. Although no further history could be obtained from the patient. His coronary risk factors are remarkable for hypertension and hyperlipidemia. He is non diabetic. MEDICATIONS: His medications include simvastatin 20 mg daily, Seroquel, Zestril 20 mg daily, Ativan, vitamin D and aspirin. REVIEW OF SYSTEMS: Review of systems according to the . RESPIRATORY SYSTEM: He has no recent wheezing. No cough. GI SYSTEM: No recent GI bleeding. No peptic ulcer disease. SYSTEM: No dysuria or hematuria. NERVOUS SYSTEM: He has a history of dementia and stroke by MRI. PHYSICAL EXAMINATION: He is an 83-year-old male, alert, confused, in no apparent distress. Blood pressure 144/80 with the heart rate in the 70s. HEAD: Normocephalic. EYES: Sclerae anicteric. NECK: Good upstroke. No bruit. No jugular venous distention. LUNGS: Clear to auscultation. HEART: Regular rate and rhythm. S1, S2. No S3 with systolic ejection murmur heard at the base, ejection type, 2/6 early peaking. No diastolic murmur. No rub. ABDOMEN: Soft, nontender. Positive bowel sounds. No organomegaly. EXTREMITIES: No edema. Intact distal pulses. LAB DATA: Lab data revealed BUN and creatinine of 17 and 1.25. Troponin 0.027. Lipase 575. Hemoglobin of 13.5. His white blood cells are 13.5. On the day prior, they were 20.4. His EKG revealed a sinus mechanism with no acute ST-segment changes. IMPRESSION: 1. Change in mental status of unclear etiology. He has leukocytosis and chest x-ray raised the possibility of infiltrate. The possibility infectious process cannot be totally excluded. 2. Prior history of syncope with a loop recorder. No documented arrhythmia. 3. History of hypertension. 4. Hyperlipidemia. RECOMMENDATION: From the cardiac standpoint, we will continue the present therapy. I will review the prior loop recorder interrogation to make sure there is no evidence of malignant arrhythmia, but at this time, I see no evidence to suggest a primary cardiac issue. Thank you for this consult. We will follow with you. NOELLEL / IJN: [id number] /
[2019-02-04 09:09] LABS: Basophils % (A) 0 %; Eosinophils # (A) 0.2 k/uL (0-0.7); Eosinophils % (A) 3 %; HCT 41.1 % (39.0-53.0); HGB 13.1 gm/dL (13.0-17.5); Lymphocytes # (A) 1.3 k/uL (1.0-4.8); Lymphocytes % (A) 14 %; MCH 31.8 pg (25.0-35.0); MCHC 31.9 g/dL (31.0-37.0); MCV 99.7 fL (80.0-100.0); Mean Platelet Volume 6.3; Monocytes # (A) 0.4 k/uL (0-1.0); Monocytes % (A) 5 %; Neutrophils # (A) 6.7 k/uL (1.3-7.7); Neutrophils % (A) 77 %; Platelet Count 278 k/uL (150-450); RBC 4.12 m/uL (4.30-5.90); RDW 12.9 % (11.5-15.5); WBC 8.8 k/uL (3.8-10.6)
[2019-02-04 09:23] LABS: Albumin 3.2 g/dL (3.5-5.0); Calcium 10.5 mg/dL (8.4-10.2); Total Bilirubin 0.6 mg/dL (0.2-1.3); Total Protein 5.7 g/dL (6.3-8.2)
[2019-02-04] MEDS ORDERED: LORazepam 0.5 MG TAB PO STA (11:56)
[2019-02-04] MEDS: LORazepam 1 MG TAB PO SCH (19:48)
[2019-02-04] MEDS: ASPIRIN 81 MG PO SCH (19:48)
[2019-02-04] MEDS: VITAMIN E (DL,TOCOPHERYL ACET) 400 UNIT CAP PO SCH (19:48)
[2019-02-04] MEDS: QUEtiapine 50 MG TAB PO SCH (19:48)
[2019-02-04] MEDS: ATORVASTATIN 10 MG TAB PO SCH (19:48)
--- NOTE | 2019-02-04 22:16 | P.HPIM ---
History of Present Illness H&P Date: 02/03/19 Chief Complaint: Altered mental status Patient is a 83-year-old male with a known history of dementia, hypertension, hyperlipidemia and heart murmur since childhood, osteoarthritis and anxiety was brought to the hospital by family due to worsening mental status and aggressive behavior and able to take care of himself. Patient was in the ER yesterday status post fall in the bathroom. Patient does not have any recent illnesses. Patient is a poor historian and cannot provide any history at this time. Patient was seen in the ER and was sent home with clinical improvement. Patient was found to have leukocytosis with WBC count 20.4 which came down to 13.5. Patient is currently not on any antibiotics. Most likely reactive leukocytosis. Trending down at this time. No fever no chills. No complaints of chest pain or shortness of breath. No nausea vomiting or diarrhea. No headache or dizziness or lightheadedness. No hematemesis or melena. History was taken from the family at bedside. Patient's family says that has been non-cooperative recently and unable to take care of him at home. Chest x-ray showed left lower lobe atelectasis versus pneumonia CT head and CT of the C-spine was done yesterday. No acute abnormality was noted. Ultrasound gallbladder showed simple cyst associated with the liver. No acute other abnormality noted. Review of Systems Constitutional: Patient denies any fever or chills . Abdomen: Patient denied nausea vomiting and diarrhea and abdominal pain. Cardiovascular: Patient denies any chest pain or short of breath no palpitations. Respiratory: patient denied any cough is from production. No shortness of breath Complete review of systems could not be obtained from the patient. Past Medical History Past Medical History: Dementia, Hyperlipidemia, Hypertension Additional Past Medical History / Comment(s): Murmur since childhood History of Any Multi-Drug Resistant Organisms: None Reported Past Surgical History: Unable to Obtain Additional Past Surgical History / Comment(s): bilateral knee replacement, r shoulder surgery, cardiac monitior Past Anesthesia/Blood Transfusion Reactions: No Reported Reaction Past Psychological History: Anxiety Smoking Status: Never smoker Past Alcohol Use History: Occasional Additional Past Alcohol Use History / Comment(s): started smoking 1950 and quit 1964 smoked less than 1 ppd Past Drug Use History: None Reported - Past Family History Mother Family Medical History: Cancer Father Family Medical History: Myocardial Infarction ([place]) Medications and Allergies Home Medications Medication Instructions Recorded Confirmed Type Aspirin EC [Ecotrin Low Dose] 81 mg PO HS 04/30/16 02/03/19 History [place]-3 Fatty Acids/Fish Oil [Fish 1 cap PO BID 04/30/16 02/03/19 History Oil 1,000 mg Softgel] Simvastatin [Zocor] 20 mg PO HS 04/30/16 02/03/19 History Vitamin E 100 unit PO HS 04/30/16 02/03/19 History Cholecalciferol [Vitamin D3] 1,000 unit PO BID 06/28/18 02/03/19 History LORazepam [Ativan] 0.5 mg PO TID 06/28/18 02/03/19 History Multivitamins, Thera [Multivitamin 1 tab PO BID 06/28/18 02/03/19 History (formulary)] Lisinopril [Zestril] 20 mg PO DAILY #30 tab 07/02/18 02/03/19 Rx Benazepril HCl 40 mg PO DAILY 02/02/19 02/03/19 History QUEtiapine [SEROquel] 50 mg PO HS 02/02/19 02/03/19 History Allergies Allergy/AdvReac Type Severity Reaction Status Date / Time No Known Allergies Allergy Verified 02/03/19 11:03 Physical Exam Vitals: Vital Signs Temp Pulse Pulse Resp BP BP Pulse Ox 02/03/19 16:58 98.1 F 86 18 178/90 96 02/03/19 16:20 98.5 F 84 18 156/88 96 02/03/19 11:50 98.9 F 02/03/19 10:54 98 02/03/19 10:45 94 L 02/03/19 10:31 97.9 F 86 18 156/86 91 L Intake and Output 02/03/19 02/03/19 02/03/19 06:59 14:59 22:59 Output Total 100 Balance -100 Output: Urine 100 Straight 100 Other: Weight 81.647 kg PHYSICAL EXAMINATION: Patient is lying in the bed comfortably, no acute distress, awake alert and oriented.. HEENT: Normocephalic. Neck is supple. Pupils reactive. Nostrils clear. Oral cavity is moist. Ears reveal no drainage. Neck reveals no JVD, carotid bruits, or thyromegaly. CHEST EXAMINATION: Trachea is central. Symmetrical expansion. Bibasilar diminished air entry. Lung burris clear to auscultation and percussion. CARDIAC: Normal S1, S2 with no gallops. Systolic murmur present ABDOMEN: Soft. Bowel sounds normal. No organomegaly. No abdominal bruits. Extremities: reveal no edema. No clubbing or cyanosis Neurologically awake, alert, oriented x2-3 with well-coordinated movements. Cognitive impairment. No focal deficits noted Skin: No rash or skin lesions. Psychiatric: Coperative. Could not be assessed completely. Musculoskeletal: No joint swelling or deformity. Normal range of motion. Results CBC & Chem 7: 02/04/19 08:35 02/04/19 08:35 Labs: Abnormal Lab Results - Last 24 Hours (Table) 02/03/19 02/03/19 02/03/19 Range/Units 10:54 10:54 11:44 WBC 13.5 H (3.8-10.6) k/uL RBC 4.15 L (4.30-5.90) m/uL Neutrophils # 11.0 H (1.3-7.7) k/uL Chloride 109 H (98-107) mmol/L Calcium 10.5 H (8.4-10.2) mg/dL AST 64 H (17-59) U/L Total Protein 5.9 L (6.3-8.2) g/dL Albumin 3.4 L (3.5-5.0) g/dL Lipase 575 H (23-300) U/L Urine Bacteria Many H (None) /hpf Urine Mucus Occasional H (None) /hpf Microbiology - Last 24 Hours (Table) 02/03/19 11:44 Urine Culture - Preliminary Urine,Clean Catch Thrombosis Risk Factor Assmnt - DVT/VTE Prophylaxis DVT/VTE Prophylaxis: Pharmacologic Prophylaxis ordered - Choose All That Apply Any of the Below Risk Factors Present?: No Each Risk Factor Represents 3 Points: Age 75 years or older Thrombosis Risk Factor Assessment Total Risk Factor Score: 3 Thrombosis Risk Factor Assessment Level: Moderate Risk Assessment and Plan Assessment: Dementia with acute behavioral disturbance. Altered mental status possible metabolic encephalopathy with infection. History of low-fabric pattern grader placement. No arrhythmias were noted previously. Left lower lobe infiltrate with pneumonia Possible acute urinary tract infection Hypertension Hyperlipidemia Osteoarthritis Anxiety DVT prophylaxis with heparin subcu Plan: Patient will be continued on antibiotics in the form of ceftriaxone. Gentle hydration. Current with home medications and follow closely. PTOT and social work consult for possible placement to rehab. Cardiology was consulted due to history of low-fabric pattern grader placement and recurrent syncopal episodes.. Further recommendations based on the clinical course. Prognosis is guarded. Time with Patient: Greater than 30
--- NOTE | 2019-02-04 22:19 | P.PN ---
Subjective Progress Note Date: 02/04/19 Principal diagnosis: Dementia with acute behavioral disturbance Gram-negative bacilli UTI left lower lobe infiltrate with pneumonia. Patient is a 83-year-old male with a known history of dementia, hypertension, hyperlipidemia and heart murmur since childhood, osteoarthritis and anxiety was brought to the hospital by family due to worsening mental status and aggressive behavior and able to take care of himself. Patient was in the ER yesterday status post fall in the bathroom. Patient does not have any recent illnesses. Patient is a poor historian and cannot provide any history at this time. Patient was seen in the ER and was sent home with clinical improvement. Patient was found to have leukocytosis with WBC count 20.4 which came down to 13.5. Patient is currently not on any antibiotics. Most likely reactive leukocytosis. Trending down at this time. No fever no chills. No complaints of chest pain or shortness of breath. No nausea vomiting or diarrhea. No headache or dizziness or lightheadedness. No hematemesis or melena. History was taken from the family at bedside. Patient's family says that has been non-cooperative recently and unable to take care of him at home. Chest x-ray showed left lower lobe atelectasis versus pneumonia CT head and CT of the C-spine was done yesterday. No acute abnormality was noted. Ultrasound gallbladder showed simple cyst associated with the liver. No acute other abnormality noted. 02/04/2019 Patient seems to be more awake today. Otherwise patient is still having underlying cognitive impairment with dementia. PT OT was consulted. Urine culture showed gram-negative bacilli. Patient is being continued on c eftriaxone. Patient was seen by cardiology and will assess for any arrhythmia in the loop recorder. No malignant arrhythmias noted currently. No fever no chills. No nausea vomiting or abdominal pain. No diarrhea. Current medications reviewed. Objective - Vital Signs Vital signs: Vital Signs Temp 98.3 F 02/04/19 13:42 Pulse 99 02/04/19 13:42 Resp 18 02/04/19 13:42 BP 148/78 02/04/19 13:42 Pulse Ox 93 L 02/04/19 13:42 Intake & Output 02/04/19 02/04/19 02/05/19 06:59 18:59 06:59 Intake Total 800 240 Output Total 0 Balance 800 240 Intake: Intake, IV Titration 800 Amount Sodium Chloride 0.9% 1, 700 000 ml @ 100 mls/hr IV . Q10H [facility] Rx#:[id number] cefTRIAXone 1 gm In 100 Sodium Chloride 0.9% 50 ml @ 100 mls/hr IVPB Q24HR [facility] Rx#:[id number] Oral 240 Output: Post Void Residual 0 Other: Voiding Method Incontinent Incontinent # Voids 1 2 # Bowel Movements 0 - Exam PHYSICAL EXAMINATION: Patient is lying in the bed comfortably, no acute distress, awake alert and oriented.. HEENT: Normocephalic. Neck is supple. Pupils reactive. Nostrils clear. Oral cavity is moist. Ears reveal no drainage. Neck reveals no JVD, carotid bruits, or thyromegaly. CHEST EXAMINATION: Trachea is central. Symmetrical expansion. Bibasilar diminished air entry. Lung burris clear to auscultation and percussion. CARDIAC: Normal S1, S2 with no gallops. Systolic murmur present ABDOMEN: Soft. Bowel sounds normal. No organomegaly. No abdominal bruits. Extremities: reveal no edema. No clubbing or cyanosis Neurologically awake, alert, oriented x2-3 with well-coordinated movements. Cognitive impairment. No focal deficits noted Skin: No rash or skin lesions. Psychiatric: Coperative. Could not be assessed completely. Musculoskeletal: No joint swelling or deformity. Normal range of motion. - Labs CBC & Chem 7: 02/04/19 08:35 02/04/19 08:35 Labs: Abnormal Lab Results - Last 24 Hours (Table) 02/04/19 02/04/19 Range/Units 08:35 08:35 RBC 4.12 L (4.30-5.90) m/uL Chloride 109 H (98-107) mmol/L Glucose 120 H (74-99) mg/dL Calcium 10.5 H (8.4-10.2) mg/dL AST 73 H (17-59) U/L Total Protein 5.7 L (6.3-8.2) g/dL Albumin 3.2 L (3.5-5.0) g/dL Microbiology - Last 24 Hours (Table) 02/03/19 12:57 Blood Culture - Preliminary Blood No Growth after 24 hours 02/03/19 11:44 Urine Culture - Preliminary Urine,Clean Catch Gram Neg Bacilli
[2019-02-05] MEDS: LISINOPRIL 20 MG TAB PO SCH (08:36)
[2019-02-05] MEDS: ENOXAPARIN 40 MG/0.4 ML SYRINGE SQ SCH (08:36)
[2019-02-05] MEDS: MULTIVITAMINS, THERA 1 EACH TAB PO SCH (08:36)
[2019-02-05] MEDS: CHOLECALCIFEROL 1,000 UNIT TAB PO SCH ×2 (08:36→20:10)
[2019-02-05] MEDS: LORazepam 1 MG TAB PO SCH ×2 (09:06→20:10)
[2019-02-05] MEDS: ASPIRIN 81 MG PO SCH (20:10)
[2019-02-05] MEDS: ATORVASTATIN 10 MG TAB PO SCH (20:10)
[2019-02-05] MEDS: QUEtiapine 50 MG TAB PO SCH (20:10)
[2019-02-05] MEDS: VITAMIN E (DL,TOCOPHERYL ACET) 400 UNIT CAP PO SCH (20:10)
--- NOTE | 2019-02-06 00:32 | P.PN ---
Subjective Progress Note Date: 02/05/19 Principal diagnosis: Dementia with acute behavioral disturbance Gram-negative bacilli UTI left lower lobe infiltrate with pneumonia. Patient is a 83-year-old male with a known history of dementia, hypertension, hyperlipidemia and heart murmur since childhood, osteoarthritis and anxiety was brought to the hospital by family due to worsening mental status and aggressive behavior and able to take care of himself. Patient was in the ER yesterday status post fall in the bathroom. Patient does not have any recent illnesses. Patient is a poor historian and cannot provide any history at this time. Patient was seen in the ER and was sent home with clinical improvement. Patient was found to have leukocytosis with WBC count 20.4 which came down to 13.5. Patient is currently not on any antibiotics. Most likely reactive leukocytosis. Trending down at this time. No fever no chills. No complaints of chest pain or shortness of breath. No nausea vomiting or diarrhea. No headache or dizziness or lightheadedness. No hematemesis or melena. History was taken from the family at bedside. Patient's family says that has been non-cooperative recently and unable to take care of him at home. Chest x-ray showed left lower lobe atelectasis versus pneumonia CT head and CT of the C-spine was done yesterday. No acute abnormality was noted. Ultrasound gallbladder showed simple cyst associated with the liver. No acute other abnormality noted. 02/04/2019 Patient seems to be more awake today. Otherwise patient is still having underlying cognitive impairment with dementia. PT OT was consulted. Urine culture showed gram-negative bacilli. Patient is being continued on c eftriaxone. Patient was seen by cardiology and will assess for any arrhythmia in the loop recorder. No malignant arrhythmias noted currently. No fever no chills. No nausea vomiting or abdominal pain. No diarrhea. 02/05/2019 Patient is more awake and alert today. Able to ambulate without support. Urine culture showed E. coli. Patient is being converted on ceftriaxone. No intervention from cardiology. Tachycardia improved. No nausea vomiting or abdominal pain. No diarrhea. Current medications reviewed. Objective - Vital Signs Vital signs: Vital Signs Temp 99.5 F 02/05/19 20:08 Pulse 83 02/05/19 20:08 Resp 18 02/05/19 20:08 BP 189/95 02/05/19 20:08 Pulse Ox 93 L 03/19/19 20:08 Intake & Output 02/05/19 02/05/19 02/06/19 06:59 18:59 06:59 Intake Total 220 1200 Output Total 350 Balance -130 1200 Intake: Oral 220 1200 Output: Urine 350 Other: Voiding Method Urinal Toilet Toilet Incontinent Urinal Urinal # Voids 2 2 # Bowel Movements 1 - Exam PHYSICAL EXAMINATION: Patient is lying in the bed comfortably, no acute distress, awake alert and oriented.. HEENT: Normocephalic. Neck is supple. Pupils reactive. Nostrils clear. Oral cavity is moist. Ears reveal no drainage. Neck reveals no JVD, carotid bruits, or thyromegaly. CHEST EXAMINATION: Trachea is central. Symmetrical expansion. Bibasilar diminished air entry. Lung burris clear to auscultation and percussion. CARDIAC: Normal S1, S2 with no gallops. Systolic murmur present ABDOMEN: Soft. Bowel sounds normal. No organomegaly. No abdominal bruits. Extremities: reveal no edema. No clubbing or cyanosis Neurologically awake, alert, oriented x2-3 with well-coordinated movements. Cognitive impairment. No focal deficits noted Skin: No rash or skin lesions. Psychiatric: Coperative. Could not be assessed completely. Musculoskeletal: No joint swelling or deformity. Normal range of motion. - Labs CBC & Chem 7: 02/04/19 08:35 02/04/19 08:35 Labs: Microbiology - Last 24 Hours (Table) 02/03/19 12:57 Blood Culture - Preliminary Blood No Growth after 48 hours 02/03/19 11:44 Urine Culture - Final Urine,Clean Catch Escherichia coli Assessment and Plan Assessment: Dementia with acute behavioral disturbance. Altered mental status possible metabolic encephalopathy with infection. History of low-bag grader placement. No arrhythmias were noted previously. Left lower lobe infiltrate with pneumonia E coli acute urinary tract infection Hypertension Hyperlipidemia Osteoarthritis Anxiety DVT prophylaxis with heparin subcu Plan: Patient will be continued on antibiotics in the form of ceftriaxone. Gentle hydration. Current with home medications and follow closely. PTOT and social work consult for possible placement to rehab. Cardiology was consulted due to history of low-bag grader placement and recurrent syncopal episodes.. Further recommendations based on the clinical course. Prognosis is guarded. Time with Patient: Greater than 30
[2019-02-06] MEDS: CHOLECALCIFEROL 1,000 UNIT TAB PO SCH ×2 (07:37→22:04)
[2019-02-06] MEDS: ENOXAPARIN 40 MG/0.4 ML SYRINGE SQ SCH (07:37)
[2019-02-06] MEDS: MULTIVITAMINS, THERA 1 EACH TAB PO SCH (07:38)
[2019-02-06] MEDS: LISINOPRIL 20 MG TAB PO SCH (07:38)
[2019-02-06] MEDS: LORazepam 1 MG TAB PO SCH ×2 (07:38→22:04)
[2019-02-06] MEDS: amLODIPine 5 MG TAB PO SCH (13:17)
--- NOTE | 2019-02-06 13:30 | PN ---
PROGRESS NOTE This patient was admitted with altered mental status changes. The patient has been treated for possible urinary tract infection. He is improved. Patient is much more alert and awake and he understands all the commands well. His blood pressure has been running high. The patient is afebrile now. Oxygen saturation is 91%. First and second heart sounds are normal. There is a grade 2/6 ejection systolic murmur noted. Lungs are clear to auscultation and percussion. In view of the elevated blood pressure, I will add amlodipine 5 mg daily. MMODL / IJN: [id number] /
[2019-02-06] MEDS: QUEtiapine 50 MG TAB PO SCH (22:04)
[2019-02-06] MEDS: ATORVASTATIN 10 MG TAB PO SCH (22:04)
[2019-02-06] MEDS: VITAMIN E (DL,TOCOPHERYL ACET) 400 UNIT CAP PO SCH (22:06)
[2019-02-06] MEDS: ASPIRIN 81 MG PO SCH (22:06)
[2019-02-07 06:27] VITALS: BP 127/72; PULSE 68; TEMP 98.1
[2019-02-07] MEDS: LISINOPRIL 20 MG TAB PO SCH (07:26)
[2019-02-07] MEDS: CHOLECALCIFEROL 1,000 UNIT TAB PO SCH (07:26)
[2019-02-07] MEDS: amLODIPine 5 MG TAB PO SCH (07:26)
[2019-02-07] MEDS: LORazepam 1 MG TAB PO SCH (07:27)
[2019-02-07 08:22] VITALS: RESP 18
[2019-02-07] MEDS: MULTIVITAMINS, THERA 1 EACH TAB PO SCH (11:18)
[2019-02-07 12:38] LABS: Calcium 10.4 mg/dL (8.4-10.2); Potassium 4.4 mmol/L (3.5-5.1)
--- NOTE | 2019-02-07 12:49 | P.PN ---
Subjective Progress Note Date: 02/06/19 Principal diagnosis: Dementia with acute behavioral disturbance Gram-negative bacilli UTI left lower lobe infiltrate with pneumonia. Patient is a 83-year-old male with a known history of dementia, hypertension, hyperlipidemia and heart murmur since childhood, osteoarthritis and anxiety was brought to the hospital by family due to worsening mental status and aggressive behavior and able to take care of himself. Patient was in the ER yesterday status post fall in the bathroom. Patient does not have any recent illnesses. Patient is a poor historian and cannot provide any history at this time. Patient was seen in the ER and was sent home with clinical improvement. Patient was found to have leukocytosis with WBC count 20.4 which came down to 13.5. Patient is currently not on any antibiotics. Most likely reactive leukocytosis. Trending down at this time. No fever no chills. No complaints of chest pain or shortness of breath. No nausea vomiting or diarrhea. No headache or dizziness or lightheadedness. No hematemesis or melena. History was taken from the family at bedside. Patient's family says that has been non-cooperative recently and unable to take care of him at home. Chest x-ray showed left lower lobe atelectasis versus pneumonia CT head and CT of the C-spine was done yesterday. No acute abnormality was noted. Ultrasound gallbladder showed simple cyst associated with the liver. No acute other abnormality noted. 02/04/2019 Patient seems to be more awake today. Otherwise patient is still having underlying cognitive impairment with dementia. PT OT was consulted. Urine culture showed gram-negative bacilli. Patient is being continued on c eftriaxone. Patient was seen by cardiology and will assess for any arrhythmia in the loop recorder. No malignant arrhythmias noted currently. No fever no chills. No nausea vomiting or abdominal pain. No diarrhea. 02/05/2019 Patient is more awake and alert today. Able to ambulate without support. Urine culture showed E. coli. Patient is being converted on ceftriaxone. No intervention from cardiology. Tachycardia improved. No nausea vomiting or abdominal pain. No diarrhea. 02/06/2019 Patient is more awake and oriented today. Able to ambulate without much support. Otherwise patient is being continued on antibiotics for E. coli urinary tract infection. Tachycardia improved. Blood pressure is slightly elevated and patient was started on the Norvasc 2.5 mg daily. PT OT is reeval uating the patient for possible rehab placement. anticipate discharge in next 24 hours. Current medications reviewed. Objective - Vital Signs Vital signs: Vital Signs Temp 98.1 F 02/06/19 14:22 Pulse 78 02/06/19 14:22 Resp 16 02/06/19 14:22 BP 170/81 02/06/19 14:22 Pulse Ox 97 02/06/19 14:22 Intake & Output 02/06/19 02/06/19 02/07/19 06:59 18:59 06:59 Intake Total 500 1440 Balance 500 1440 Intake: Oral 500 1440 Other: Voiding Method Toilet Toilet Urinal Urinal Diaper Incontinent # Voids 3 2 # Bowel Movements 1 - Exam PHYSICAL EXAMINATION: Patient is lying in the bed comfortably, no acute distress, awake alert and oriented.. HEENT: Normocephalic. Neck is supple. Pupils reactive. Nostrils clear. Oral cavity is moist. Ears reveal no drainage. Neck reveals no JVD, carotid bruits, or thyromegaly. CHEST EXAMINATION: Trachea is central. Symmetrical expansion. Bibasilar diminished air entry. Lung burris clear to auscultation and percussion. CARDIAC: Normal S1, S2 with no gallops. Systolic murmur present ABDOMEN: Soft. Bowel sounds normal. No organomegaly. No abdominal bruits. Extremities: reveal no edema. No clubbing or cyanosis Neurologically awake, alert, oriented x2-3 with well-coordinated movements. Cognitive impairment. No focal deficits noted Skin: No rash or skin lesions. Psychiatric: Coperative. Could not be assessed completely. Musculoskeletal: No joint swelling or deformity. Normal range of motion. - Labs CBC & Chem 7: 02/04/19 08:35 02/07/19 12:13 Labs: Microbiology - Last 24 Hours (Table) 02/03/19 12:57 Blood Culture - Preliminary Blood No Growth after 72 hours Assessment and Plan Assessment: Dementia with acute behavioral disturbance. Altered mental status possible metabolic encephalopathy with infection. History of low-milled lumber grader placement. No arrhythmias were noted previously. Left lower lobe infiltrate with pneumonia E coli acute urinary tract infection Hypertension Hyperlipidemia Osteoarthritis Anxiety DVT prophylaxis with heparin subcu Plan: Patient will be continued on antibiotics in the form of ceftriaxone. Gentle hydration. Current with home medications and follow closely. PTOT and social work consult for possible placement to rehab. Cardiology was consulted due to history of loop recorder placement and recurrent syncopal episodes.. Further recommendations based on the clinical course. Prognosis is guarded. Time with Patient: Greater than 30
[2019-02-07 12:52] LABS: Basophils % (A) 1 %; Eosinophils # (A) 0.2 k/uL (0-0.7); Eosinophils % (A) 3 %; HCT 41.9 % (39.0-53.0); HGB 13.3 gm/dL (13.0-17.5); Lymphocytes # (A) 1.4 k/uL (1.0-4.8); Lymphocytes % (A) 18 %; MCH 32.4 pg (25.0-35.0); MCHC 31.7 g/dL (31.0-37.0); MCV 102.3 fL (80.0-100.0); Macrocytosis Slight; Mean Platelet Volume 6.4; Monocytes # (A) 0.4 k/uL (0-1.0); Monocytes % (A) 6 %; Neutrophils # (A) 5.3 k/uL (1.3-7.7); Neutrophils % (A) 70 %; Platelet Count 316 k/uL (150-450); RBC 4.09 m/uL (4.30-5.90); RDW 12.9 % (11.5-15.5); WBC 7.5 k/uL (3.8-10.6)
--- NOTE | 2019-02-07 13:09 | P.DS ---
Providers Date of admission: 02/04/19 14:29 Expected date of discharge: 02/07/19 Attending physician: Malina Araujo Consults: 02/03/19 17:59 Consult Physician Routine Consulting Provider: Pawel Thornton Consult Reason/Comments: fall hx of loop recorder placement Do you want consulting provider notified?: Yes Primary care physician: [facility] Course: Discharge diagnosis Dementia with acute behavioral disturbance. Improved now. Altered mental status possible metabolic encephalopathy with infection. Back to baseline. History of low-abrasive grader placement. No arrhythmias were noted previously. Left lower lobe infiltrate with pneumonia E coli acute urinary tract infection Hypertension Hyperlipidemia Osteoarthritis Anxiety DVT prophylaxis with heparin subcu Hospital course Patient is a 83-year-old male with a known history of dementia, hypertension, hyperlipidemia and heart murmur since childhood, osteoarthritis and anxiety was brought to the hospital by family due to worsening mental status and aggressive behavior and able to take care of himself. Patient was in the ER yesterday status post fall in the bathroom. Patient does not have any recent illnesses. Patient is a poor historian and cannot provide any history at this time. Patient was seen in the ER and was sent home with clinical improvement. Patient was found to have leukocytosis with WBC count 20.4 which came down to 13.5. Patient is currently not on any antibiotics. Most likely reactive leukocytosis. Trending down at this time. No fever no chills. No complaints of chest pain or shortness of breath. No nausea vomiting or diarrhea. No headache or dizziness or lightheadedness. No hematemesis or melena. History was taken from the family at bedside. Patient's family says that has been non-cooperative recently and unable to take care of him at home. Chest x-ray showed left lower lobe atelectasis versus pneumonia CT head and CT of the C-spine was done yesterday. No acute abnormality was noted. Ultrasound gallbladder showed simple cyst associated with the liver. No acute other abnormality noted. 02/04/2019 Patient seems to be more awake today. Otherwise patient is still having underlying cognitive impairment with dementia. PT OT was consulted. Urine culture showed gram-negative bacilli. Patient is being continued on ceftriaxone. Patient was seen by cardiology and will assess for any arrhythmia in the loop recorder. No malignant arrhythmias noted currently. No fever no chills. No nausea vomiting or abdominal pain. No diarrhea. 02/05/2019 Patient is more awake and alert today. Able to ambulate without support. Urine culture showed E. coli. Patient is being converted on ceftriaxone. No intervention from cardiology. Tachycardia improved. No nausea vomiting or abdominal pain. No diarrhea. 02/06/2019 Patient is more awake and oriented today. Able to ambulate without much support. Otherwise patient is being continued on antibiotics for E. coli urinary tract infection. Tachycardia improved. Blood pressure is slightly elevated and patient was started on the Norvasc 2.5 mg daily. PT OT is reevaluating the patient for possible rehab placement. anticipate discharge in next 24 hours. 02/07/2019 Patient is awake alert and oriented2-3. Participating in physical therapy. PTOT recommends ECF placement. Blood pressure is better controlled. Patient will be continued on antibiotic course and will be discharged to ECF today. Patient was continued on antibiotics in the form of ceftriaxone. Gentle hydration. Current with home medications and followed closely. PTOT and social work consult for possible placement to rehab. Cardiology was consulted due to history of loop recorder placement and recurrent syncopal episodes. No further intervention recommended at this time.. PHYSICAL EXAMINATION: Patient is lying in the bed comfortably, no acute distress, awake alert and oriented.. HEENT: Normocephalic. Neck is supple. Pupils reactive. Nostrils clear. Oral cavity is moist. Ears reveal no drainage. Neck reveals no JVD, carotid bruits, or thyromegaly. CHEST EXAMINATION: Trachea is central. Symmetrical expansion. Bibasilar diminished air entry. Lung burris clear to auscultation and percussion. CARDIAC: Normal S1, S2 with no gallops. Systolic murmur present ABDOMEN: Soft. Bowel sounds normal. No organomegaly. No abdominal bruits. Extremities: reveal no edema. No clubbing or cyanosis Neurologically awake, alert, oriented x2-3 with well-coordinated movements. Cognitive impairment. No focal deficits noted Skin: No rash or skin lesions. Psychiatric: Coperative. Could not be assessed completely. Musculoskeletal: No joint swelling or deformity. Normal range of motion. Vital Signs 02/07/19 02/07/19 05:40 08:15 Temperature 98.1 F Pulse Rate [ 68 Pulse Oximetery ] Respiratory 20 18 Rate Blood Pressure 127/72 [Right Arm] O2 Sat by Pulse 96 Oximetry Total time taken greater than 35 minutes including 18 minutes for counseling and coordination of care. Patient Condition at Discharge: Good Plan - Discharge Summary Discharge Rx Participant: No New Discharge Prescriptions: New Cefuroxime Axetil [Ceftin] 500 mg PO BID 3 Days #6 tab amLODIPine [Norvasc] 2.5 mg PO DAILY #15 tab Continue [place]-3 Fatty Acids/Fish Oil [Fish Oil 1,000 mg Softgel] 1 cap PO BID Aspirin EC [Ecotrin Low Dose] 81 mg PO HS Simvastatin [Zocor] 20 mg PO HS Vitamin E 100 unit PO HS Multivitamins, Thera [Multivitamin (formulary)] 1 tab PO BID QUEtiapine [SEROquel] 50 mg PO HS Benazepril HCl 40 mg PO DAILY Changed LORazepam [Ativan] 0.5 mg PO BID PRN #10 tab PRN Reason: Anxiety Cholecalciferol [Vitamin D3] 1,000 unit PO DAILY #0 Discontinued Lisinopril [Zestril] 20 mg PO DAILY #30 tab Discharge Medication List Aspirin EC [Ecotrin Low Dose] 81 mg PO HS 04/30/16 [History] [place]-3 Fatty Acids/Fish Oil [Fish Oil 1,000 mg Softgel] 1 cap PO BID 04/30/16 [History] Simvastatin [Zocor] 20 mg PO HS 04/30/16 [History] Vitamin E 100 unit PO HS 04/30/16 [History] Multivitamins, Thera [Multivitamin (formulary)] 1 tab PO BID 06/28/18 [History] Benazepril HCl 40 mg PO DAILY 02/02/19 [History] QUEtiapine [SEROquel] 50 mg PO HS 02/02/19 [History] Cefuroxime Axetil [Ceftin] 500 mg PO BID 3 Days #6 tab 02/07/19 [Rx] Cholecalciferol [Vitamin D3] 1,000 unit PO DAILY #0 02/07/19 [Rx] LORazepam [Ativan] 0.5 mg PO BID PRN #10 tab 02/07/19 [Rx] amLODIPine [Norvasc] 2.5 mg PO DAILY #15 tab 02/07/19 [Rx] Follow up Appointment(s)/Referral(s): Ashutosh Childress MD [Primary Care Provider] - 1-2 days Discharge Disposition: TRANSFER TO SNF/ECF
== END 2019-02-07 14:36 | DRG 689 ==
LOC: EC 10:27 → UNDOADMOB 13:13 → 4SSUR 13:13 → 4MS4W 02-04 08:18 → OBSVTOIN 02-04 14:29
PROVIDERS: ADMIT Hospitalist; ATTEND Hospitalist
DX: N39.0 Urinary tract infection, site not specified (principal); K85.90 Acute pancreatitis without necrosis or infection, unspecified; J18.9 Pneumonia, unspecified organism; G93.41 Metabolic encephalopathy; F02.81 Dementia in other diseases classified elsewhere, unspecified severity, with behavioral disturbance; E86.0 Dehydration; G30.9 Alzheimer's disease, unspecified; I35.0 Nonrheumatic aortic (valve) stenosis; K76.89 Other specified diseases of liver; B96.20 Unspecified Escherichia coli [E. coli] as the cause of diseases classified elsewhere; K76.9 Liver disease, unspecified; I10 Essential (primary) hypertension; F41.9 Anxiety disorder, unspecified; E78.5 Hyperlipidemia, unspecified; M19.90 Unspecified osteoarthritis, unspecified site; Z79.82 Long term (current) use of aspirin; Z79.899 Other long term (current) drug therapy; Z96.653 Presence of artificial knee joint, bilateral; Z87.891 Personal history of nicotine dependence; Z87.820 Personal history of traumatic brain injury; Z82.49 Family history of ischemic heart disease and other diseases of the circulatory system; Z80.9 Family history of malignant neoplasm, unspecified; W19.XXXA Unspecified fall, initial encounter
CPT/HCPCS: 36415; 51701; 71045; 71046; 76705; 80048; 80053; 81001; 83605; 83690; 83735; 84100; 84443; 84484; 85025; 87040; 87077; 87086; 87186; 93005; 96361; 96365; 99285

== ENCOUNTER 2019-06-22 16:40 | Emergency (ER) | payer MEDICARE, BC ==
[2019-06-22 16:50] VITALS: RESP 18
[2019-06-22] MEDS ORDERED: SODIUM CHLORIDE 0.9% 500 ML IV STA (16:54)
--- NOTE | 2019-06-22 17:02 | ED ---
General Adult HPI - General Chief complaint: Recheck/Abnormal Lab/Rx Stated complaint: hyperthermia Time Seen by Provider: 06/22/19 16:53 Source: patient Mode of arrival: EMS Limitations: no limitations - History of Present Illness Initial comments: Dictation was produced using [employer] dictation software. please excuse any grammatical, word or spelling errors. Chief Complaint: 84-year-old male presents with chief complaint of fall. History of Present Illness: She was an 84-year-old male he has past medical history of dementia. He presents today with one of the staff members from the detention. Patient allegedly tries to escape the living facility all the time. Earlier this afternoon he was able to escape. He took his coat and walk away. Patient was walking for several minutes before he was discovered by antonino hernandez to be on the ground. Patient is a poor historian at this time. He does not recall. Patient's mental status is allegedly baseline demented per staff member. Patient has no complaints at this time. The ROS documented in this emergency department record has been reviewed and confirmed by me. Those systems with pertinent positive or negative responses have been documented in the HPI. All other systems are other negative and/or noncontributory. PHYSICAL EXAM: General Impression: Alert and oriented x3, not in acute distress HEENT: Normocephalic atraumatic, extra-ocular movements intact, pupils equal and reactive to light bilaterally, mucous membranes moist. Cardiovascular: Heart regular rate and rhythm, S1&S2 audible, no murmurs, rubs or gallops Chest: Lungs clear to auscultation bilaterally, no rhonchi, no wheeze, no rales Abdomen: Bowel sounds present, abdomen soft, non-tender, non-distended, no organomegaly Musculoskeletal: Pulses present and equal in all extremities, no peripheral edema Motor: no focal deficits noted Neurological: CN II-XII grossly intact, no focal motor or sensory deficits noted Skin: Intact with no visualized rashes, warm Psych: Normal affect and mood ED course: 84-year-old male presents with detention staff for fall. EMS transported patient. He is found to have a slight elevated temperature. Vital signs upon arrival shows temperature 100.4. Staff member does not report that patient had any medical concerns prior to him escaping the living facility. Clinical presentation is concerning for heat exhaustion.Laboratory evaluation obtained. CBC is unremarkable. Metabolic panel is unremarkable. Patient is slight elevation of renal markers jumping. A bee around his baseline. Computed tomography scan of the head and C-spine shows no acute processes. Chest x-ray and pelvis x-ray is nonacute. Repeat vital signs are improved. Patient clear for discharge back to living facility. Return parameters discussed. EKG interpretation: Ventricular rate 70, normal sinus rhythm, W[place] interval 200, QS 94, QTC 417. No W[place] prolongation, no QTC prolongation, no ST or T-wave changes noted. EKG compared to 02/03/2019 showing no changes. Overall, this EKG is unremarkable - Related Data Home Medications Medication Instructions Recorded Confirmed Aspirin EC [Ecotrin Low Dose] 81 mg PO DAILY 04/30/16 06/22/19 [place]-3 Fatty Acids/Fish Oil [Fish 1 cap PO HS 04/30/16 06/22/19 Oil 1,000 mg Softgel] Vitamin E 100 unit PO DAILY 04/30/16 06/22/19 Multivitamins, Thera [Multivitamin 1 tab PO HS 06/28/18 06/22/19 (formulary)] Benazepril HCl 40 mg PO DAILY 02/02/19 06/22/19 QUEtiapine [SEROquel] 100 mg PO HS 02/02/19 06/22/19 Acetaminophen Tab [Tylenol Tab] 650 mg PO Q6H PRN 06/22/19 06/22/19 Cholecalciferol [Vitamin D3 (25 1,000 unit PO HS 06/22/19 06/22/19 Mcg = 1000 Iu)] LORazepam [Ativan] 1 mg PO TID 06/22/19 06/22/19 LORazepam [Ativan] 1 mg PO TID PRN 06/22/19 06/22/19 Sennosides-Docusate Sodium 2 tab PO HS 06/22/19 06/22/19 [Senokot-S] Simvastatin [Zocor] 20 mg PO HS 06/22/19 06/22/19 amLODIPine [Norvasc] 10 mg PO DAILY 06/22/19 06/22/19 clonazePAM [KlonoPIN] 0.5 mg PO DAILY PRN 06/22/19 06/22/19 Allergies Allergy/AdvReac Type Severity Reaction Status Date / Time No Known Allergies Allergy Verified 06/22/19 18:44 Review of Systems ROS Statement: Those systems with pertinent positive or pertinent negative responses have been documented in the HPI. ROS Other: All systems not noted in ROS Statement are negative. Past Medical History Past Medical History: Dementia, Hyperlipidemia, Hypertension Additional Past Medical History / Comment(s): Murmur since childhood History of Any Multi-Drug Resistant Organisms: None Reported Past Surgical History: Unable to Obtain Additional Past Surgical History / Comment(s): bilateral knee replacement, r shoulder surgery, cardiac monitior Past Anesthesia/Blood Transfusion Reactions: No Reported Reaction Past Psychological History: Anxiety Smoking Status: Never smoker Past Alcohol Use History: Occasional Past Drug Use History: None Reported - Past Family History Mother Family Medical History: Cancer Father Family Medical History: Myocardial Infarction ([place]) General Exam Limitations: no limitations Course Vital Signs 06/22/19 06/22/19 16:46 19:12 Temperature 100.4 F H 98.8 F Pulse Rate 87 75 Respiratory 18 18 Rate Blood Pressure 124/67 140/73 O2 Sat by Pulse 94 L 100 Oximetry Medical Decision Making - Lab Data Result diagrams: 06/22/19 17:35 06/22/19 17:35 Lab Results 06/22/19 06/22/19 Range/Units 17:35 17:35 WBC 5.5 (3.8-10.6) k/uL RBC 3.52 L (4.30-5.90) m/uL Hgb 11.6 L (13.0-17.5) gm/dL Hct 35.4 L (39.0-53.0) % MCV 100.6 H (80.0-100.0) fL MCH 32.9 (25.0-35.0) pg MCHC 32.7 (31.0-37.0) g/dL RDW 14.3 (11.5-15.5) % Plt Count 223 (150-450) k/uL Neutrophils % 74 % Lymphocytes % 17 % Monocytes % 5 % Eosinophils % 2 % Basophils % 0 % Neutrophils # 4.1 (1.3-7.7) k/uL Lymphocytes # 0.9 L (1.0-4.8) k/uL Monocytes # 0.3 (0-1.0) k/uL Eosinophils # 0.1 (0-0.7) k/uL Basophils # 0.0 (0-0.2) k/uL Macrocytosis Slight Sodium 139 (137-145) mmol/L Potassium 4.4 (3.5-5.1) mmol/L Chloride 109 H (98-107) mmol/L Carbon Dioxide 24 (22-30) mmol/L Anion Gap 6 mmol/L BUN 22 H (9-20) mg/dL Creatinine 1.31 H (0.66-1.25) mg/dL Est GFR (CKD-EPI)AfAm 57 (>60 ml/min/1.73 sqM) Est GFR (CKD-EPI)NonAf 49 (>60 ml/min/1.73 sqM) Glucose 101 H (74-99) mg/dL Calcium 10.0 (8.4-10.2) mg/dL Magnesium 2.2 (1.6-2.3) mg/dL Creatine Kinase 51 L (55-170) U/L Disposition Clinical Impression: Fall Disposition: HOME SELF-CARE Condition: Good Is patient prescribed a controlled substance at d/c from ED?: No Referrals: Ashutosh Childress MD [Primary Care Provider] - 1-2 days Time of Disposition: 19:27
[2019-06-22 18:13] LABS: Basophils % (A) 0 %; Eosinophils # (A) 0.1 k/uL (0-0.7); Eosinophils % (A) 2 %; HCT 35.4 % (39.0-53.0); HGB 11.6 gm/dL (13.0-17.5); Lymphocytes # (A) 0.9 k/uL (1.0-4.8); Lymphocytes % (A) 17 %; MCH 32.9 pg (25.0-35.0); MCHC 32.7 g/dL (31.0-37.0); MCV 100.6 fL (80.0-100.0); Macrocytosis Slight; Mean Platelet Volume 7.1; Monocytes # (A) 0.3 k/uL (0-1.0); Monocytes % (A) 5 %; Neutrophils # (A) 4.1 k/uL (1.3-7.7); Neutrophils % (A) 74 %; Platelet Count 223 k/uL (150-450); RBC 3.52 m/uL (4.30-5.90); RDW 14.3 % (11.5-15.5); WBC 5.5 k/uL (3.8-10.6)
[2019-06-22 18:23] LABS: Magnesium 2.2 mg/dL (1.6-2.3); Potassium 4.4 mmol/L (3.5-5.1)
--- NOTE | 2019-06-22 18:37 | XR ---
EXAMINATION TYPE: XR pelvis AP view DATE OF EXAM: 06/22/2019 CLINICAL HISTORY: Pain after fall injury. TECHNIQUE: A single AP view of the pelvis is obtained. COMPARISON: Pelvic x-ray February 02, 2019. FINDINGS: There is no acute fracture/dislocation evident in the pelvis. The sacroiliac joints appea r symmetric and unremarkable. Stable mild degenerative changes in both hips redemonstrated. Scattered pelvic phlebolith are redemonstrated. IMPRESSION: There is no acute fracture or dislocation in the pelvis.
--- NOTE | 2019-06-22 18:38 | XR ---
EXAMINATION TYPE: XR chest 1V portable DATE OF EXAM: 06/22/2019 COMPARISON: Chest x-ray February 04, 2019 HISTORY: Pain after fall injury. TECHNIQUE: Single AP portable frontal upright view of the chest is obtained. FINDINGS: The osseous structures are intact. Cardiac silhouette size is stable and upper limits of n ormal with overlying loop recorder and ectatic thoracic aorta redemonstrated. Patchy left basilar opa [place] is less prominent than prior. Right lung remains clear. IMPRESSION: Patchy left basilar atelectasis and/or infiltrate improved from prior.
--- NOTE | 2019-06-22 19:01 | CT ---
EXAMINATION TYPE: CT brain cspine wo con DATE OF EXAM: 06/22/2019 COMPARISON: CT brain and cervical spine February 02, 2019 HISTORY: Confusion. possible fall injury with neck pain. CT DLP: 1402.4 mGycm. Automated Exposure Control for Dose Reduction was Utilized. TECHNIQUE: CT scan of the head and cervical spine are performed without contrast. FINDINGS: There is no acute intracranial hemorrhage or midline shift identified. Ventricular and allan lcal prominence is redemonstrated. Asymmetric left temporal lobe atrophy versus right side is again s een. Low attenuation in deep and periventricular white matter is again seen. Opacified left mastoid a ir cells redemonstrated. The globes are intact and the visualized sinuses are clear. The calvarium is intact. Cervical spine is visualized in its entirety from C1 through upper thoracic levels and demonstrates s table slight grade 1 anterolisthesis C3 on C4 without evidence of acute fracture or dislocation. Pre vertebral soft tissue appears within normal limits. The C1-C2 articulation is within normal limits o n the coronal images. Moderate to severe disc space narrowing with endplate sclerosis C6-C7 level and moderate spurring is redemonstrated . Posterior spur disc complexes efface the anterior thecal sac C 4-C5 through C6-C7 level. Axial images show multilevel uncovertebral facet degenerative changes great er on the left and upper cervical spine and greater on the right in mid to lower cervical spine causi ng multilevel neural foraminal narrowing. Thyroid gland remains within normal limits. Lung apices rem ain clear. IMPRESSION: 1. There is no acute fracture or dislocation evident in the cervical spine. Multilevel degenerative c hanges redemonstrated. 2. No acute intracranial hemorrhage or midline shift is seen. Moderate to severe atrophy with more pr ominent left frontal and temporal lobe atrophy redemonstrated. Mild chronic small vessel ischemic chelsi nge again seen. No significant change from prior.
[2019-06-22 19:28] VITALS: BP 152/64; PULSE 64; TEMP 98
== END 2019-06-22 19:53 | disposition home or self-care (01) ==
LOC: EC 16:40
DX: Z04.3 Encounter for examination and observation following other accident (principal); F03.90 Unspecified dementia, unspecified severity, without behavioral disturbance, psychotic disturbance, mood disturbance, and anxiety; E78.5 Hyperlipidemia, unspecified; I10 Essential (primary) hypertension; F41.9 Anxiety disorder, unspecified; Z79.82 Long term (current) use of aspirin; Z79.899 Other long term (current) drug therapy; Z96.653 Presence of artificial knee joint, bilateral; W19.XXXA Unspecified fall, initial encounter; Y93.01 Activity, walking, marching and hiking; Y92.89 Other specified places as the place of occurrence of the external cause
CPT/HCPCS: 36415; 70450; 71045; 72125; 72170; 80048; 82550; 83735; 85025; 93005; 96360; 99285

== ENCOUNTER 2019-08-27 12:10 | Inpatient (IN) | payer MEDICARE, BC ==
[2019-08-27] MEDS ORDERED: SODIUM CHLORIDE 0.9% 1,000 ML IV STA ×2 (13:07)
[2019-08-27] MEDS ORDERED: MORPHINE SULFATE 4 MG/ML SYRINGE IV STA (13:07)
[2019-08-27] MEDS ORDERED: SODIUM CHLORIDE 0.9% 1,000 ML IV ONE (13:09)
--- NOTE | 2019-08-27 13:18 | ED ---
Lower Extremity Injury HPI - General Chief Complaint: Extremity Injury, Lower Stated Complaint: Fell/poss fx leg Time Seen by Provider: 08/27/19 12:48 Source: family, RN notes reviewed, old records reviewed Mode of arrival: wheelchair Limitations: altered mental status, physical limitation - History of Present Illness Initial Comments: 4 male seen evaluated, patient comes in for mental lodged for evaluation of fall. Fall that resulted in right hip fracture. Patient himself is severe dementia unable to give history history obtained from EMS and patient's chart MD Complaint: hip injury (Right) -: days(s) Injury: Hip: Right, Pelvis: Right Place: other (EC[facility]) Severity: severe Severity scale (1-10): 8 Improves With: nothing Worsens With: weight bearing, movement Context: fall, direct blow Associated Symptoms: swelling, unable to bear weight - Related Data Home Medications Medication Instructions Recorded Confirmed Aspirin EC [Ecotrin Low Dose] 81 mg PO DAILY 04/30/16 08/27/19 [place]-3 Fatty Acids/Fish Oil [Fish 1 cap PO HS 04/30/16 08/27/19 Oil 1,000 mg Softgel] Vitamin E 100 unit PO DAILY 04/30/16 08/27/19 Multivitamins, Thera [Multivitamin 1 tab PO HS 06/28/18 08/27/19 (formulary)] QUEtiapine [SEROquel] 100 mg PO HS 02/02/19 08/27/19 Acetaminophen Tab [Tylenol Tab] 650 mg PO Q6H PRN 06/22/19 08/27/19 Cholecalciferol [Vitamin D3 (25 1,000 unit PO HS 06/22/19 08/27/19 Mcg = 1000 Iu)] LORazepam [Ativan] 1 mg PO Q3H PRN 06/22/19 08/27/19 LORazepam [Ativan] 1 mg PO TID 06/22/19 08/27/19 Sennosides-Docusate Sodium 2 tab PO HS 06/22/19 08/27/19 [Senokot-S] Simvastatin [Zocor] 20 mg PO HS 06/22/19 08/27/19 amLODIPine [Norvasc] 10 mg PO DAILY 06/22/19 08/27/19 clonazePAM [KlonoPIN] 0.5 mg PO DAILY PRN 06/22/19 08/27/19 Magnesium Hydroxide [Milk of 2,400 mg PO Q72H PRN 08/27/19 08/27/19 [place]] Allergies Allergy/AdvReac Type Severity Reaction Status Date / Time No Known Allergies Allergy Verified 08/27/19 13:01 Review of Systems ROS Statement: Those systems with pertinent positive or pertinent negative responses have been documented in the HPI. ROS Other: All systems not noted in ROS Statement are negative. Past Medical History Past Medical History: Dementia, Hyperlipidemia, Hypertension Additional Past Medical History / Comment(s): Murmur since childhood History of Any Multi-Drug Resistant Organisms: None Reported Past Surgical History: Unable to Obtain Additional Past Surgical History / Comment(s): bilateral knee replacement, r shoulder surgery, cardiac monitior Past Anesthesia/Blood Transfusion Reactions: No Reported Reaction Past Psychological History: Anxiety Smoking Status: Never smoker Past Alcohol Use History: Occasional Past Drug Use History: None Reported - Past Family History Mother Family Medical History: Cancer Father Family Medical History: Myocardial Infarction ([place]) General Exam Limitations: altered mental status, physical limitation General appearance: alert, in no apparent distress Head exam: Present: atraumatic, normocephalic, normal inspection Eye exam: Present: normal appearance, PERRL, EOMI. Absent: scleral icterus, conjunctival injection, periorbital swelling ENT exam: Present: normal exam, mucous membranes moist Neck exam: Present: normal inspection. Absent: tenderness, meningismus, lymphadenopathy Respiratory exam: Present: normal lung sounds bilaterally. Absent: respiratory distress, wheezes, rales, rhonchi, stridor Cardiovascular Exam: Present: regular rate, normal rhythm, normal heart sounds. Absent: systolic murmur, diastolic murmur, rubs, gallop, clicks GI/Abdominal exam: Present: soft, normal bowel sounds. Absent: distended, tenderness, guarding, rebound, rigid Extremities exam: Present: normal inspection, full ROM, normal capillary refill, other (RLE deformity, Ext Rotated and Shortened). Absent: tenderness, pedal edema, joint swelling, calf tenderness Back exam: Present: normal inspection Neurological exam: Present: alert, oriented X3, CN II-XII intact Psychiatric exam: Present: normal affect, normal mood Skin exam: Present: warm, dry, intact, normal color. Absent: rash Course Vital Signs 08/27/19 12:15 Temperature 98.6 F Pulse Rate 91 Respiratory 18 Rate Blood Pressure 145/73 O2 Sat by Pulse 96 Oximetry - Reevaluation(s) Reevaluation #1: 08/27/19 13:18 medical record is reviewed Reevaluation #2: 08/27/19 14:29 Family at bedside providing history of fall and results - Consultations Consultation #1: Spoke with Dr. Jeffy leonard for admission Medical Decision Making - Medical Decision Making 84 male the ER with no real significant medical history no blood thinners coming in status post fall right subcapital hip fracture will admit for orthopedic evaluation and management - Lab Data Result diagrams: 08/27/19 13:35 08/27/19 13:35 Lab Results 08/27/19 08/27/19 08/27/19 Range/Units 13:35 13:35 13:35 WBC 11.1 H (3.8-10.6) k/uL RBC 3.74 L (4.30-5.90) m/uL Hgb 12.3 L (13.0-17.5) gm/dL Hct 36.5 L (39.0-53.0) % MCV 97.5 (80.0-100.0) fL MCH 32.9 (25.0-35.0) pg MCHC 33.8 (31.0-37.0) g/dL RDW 13.1 (11.5-15.5) % Plt Count 254 (150-450) k/uL Neutrophils % 80 % Lymphocytes % 11 % Monocytes % 7 % Eosinophils % 1 % Basophils % 0 % Neutrophils # 8.8 H (1.3-7.7) k/uL Lymphocytes # 1.2 (1.0-4.8) k/uL Monocytes # 0.7 (0-1.0) k/uL Eosinophils # 0.1 (0-0.7) k/uL Basophils # 0.0 (0-0.2) k/uL PT 9.9 (9.0-12.0) sec INR 0.9 (<1.2) APTT 26.9 (22.0-30.0) sec Sodium 139 (137-145) mmol/L Potassium 4.2 (3.5-5.1) mmol/L Chloride 107 (98-107) mmol/L Carbon Dioxide 26 (22-30) mmol/L Anion Gap 6 mmol/L BUN 19 (9-20) mg/dL Creatinine 1.21 (0.66-1.25) mg/dL Est GFR (CKD-EPI)AfAm 63 (>60 ml/min/1.73 sqM) Est GFR (CKD-EPI)NonAf 54 (>60 ml/min/1.73 sqM) Glucose 109 H (74-99) mg/dL Calcium 10.2 (8.4-10.2) mg/dL Phosphorus 3.1 (2.5-4.5) mg/dL Magnesium 2.2 (1.6-2.3) mg/dL Total Bilirubin 0.8 (0.2-1.3) mg/dL AST 29 (17-59) U/L ALT 23 (21-72) U/L Alkaline Phosphatase 99 (38-126) U/L Total Protein 6.7 (6.3-8.2) g/dL Albumin 3.9 (3.5-5.0) g/dL Urine Color Urine Appearance (Clear) Urine pH (5.0-8.0) Ur Specific [place] (1.001-1.035) Urine Protein (Negative) Urine Glucose (UA) (Negative) Urine Ketones (Negative) Urine Blood (Negative) Urine Nitrite (Negative) Urine Bilirubin (Negative) Urine Urobilinogen (<2.0) mg/dL Ur Leukocyte Esterase (Negative) 08/27/19 Range/Units 13:35 WBC (3.8-10.6) k/uL RBC (4.30-5.90) m/uL Hgb (13.0-17.5) gm/dL Hct (39.0-53.0) % MCV (80.0-100.0) fL MCH (25.0-35.0) pg MCHC (31.0-37.0) g/dL RDW (11.5-15.5) % Plt Count (150-450) k/uL Neutrophils % % Lymphocytes % % Monocytes % % Eosinophils % % Basophils % % Neutrophils # (1.3-7.7) k/uL Lymphocytes # (1.0-4.8) k/uL Monocytes # (0-1.0) k/uL Eosinophils # (0-0.7) k/uL Basophils # (0-0.2) k/uL PT (9.0-12.0) sec INR (<1.2) APTT (22.0-30.0) sec Sodium (137-145) mmol/L Potassium (3.5-5.1) mmol/L Chloride (98-107) mmol/L Carbon Dioxide (22-30) mmol/L Anion Gap mmol/L BUN (9-20) mg/dL Creatinine (0.66-1.25) mg/dL Est GFR (CKD-EPI)AfAm (>60 ml/min/1.73 sqM) Est GFR (CKD-EPI)NonAf (>60 ml/min/1.73 sqM) Glucose (74-99) mg/dL Calcium (8.4-10.2) mg/dL Phosphorus (2.5-4.5) mg/dL Magnesium (1.6-2.3) mg/dL Total Bilirubin (0.2-1.3) mg/dL AST (17-59) U/L ALT (21-72) U/L Alkaline Phosphatase (38-126) U/L Total Protein (6.3-8.2) g/dL Albumin (3.5-5.0) g/dL Urine Color Yellow Urine Appearance Clear (Clear) Urine pH 6.5 (5.0-8.0) Ur Specific [place] 1.016 (1.001-1.035) Urine Protein Negative (Negative) Urine Glucose (UA) Negative (Negative) Urine Ketones Negative (Negative) Urine Blood Negative (Negative) Urine Nitrite Negative (Negative) Urine Bilirubin Negative (Negative) Urine Urobilinogen <2.0 (<2.0) mg/dL Ur Leukocyte Esterase Negative (Negative) - Radiology Data Radiology results: report reviewed (X-ray right hip positive for subcapital right hip fracture, chest x-rays negative), image reviewed Disposition Clinical Impression: Fracture of hip, Subcapital fracture of right femur, Fall, Dementia Disposition: ADMITTED IP TO THIS [facility] Condition: Fair Is patient prescribed a controlled substance at d/c from ED?: No Referrals: Ashutosh Childress MD [Primary Care Provider] - 1-2 days
[2019-08-27 13:58] LABS: Basophils % (A) 0 %; Eosinophils # (A) 0.1 k/uL (0-0.7); Eosinophils % (A) 1 %; HCT 36.5 % (39.0-53.0); HGB 12.3 gm/dL (13.0-17.5); Lymphocytes # (A) 1.2 k/uL (1.0-4.8); Lymphocytes % (A) 11 %; MCH 32.9 pg (25.0-35.0); MCHC 33.8 g/dL (31.0-37.0); MCV 97.5 fL (80.0-100.0); Mean Platelet Volume 5.8; Monocytes # (A) 0.7 k/uL (0-1.0); Monocytes % (A) 7 %; Neutrophils # (A) 8.8 k/uL (1.3-7.7); Neutrophils % (A) 80 %; Platelet Count 254 k/uL (150-450); RBC 3.74 m/uL (4.30-5.90); RDW 13.1 % (11.5-15.5); WBC 11.1 k/uL (3.8-10.6)
--- NOTE | 2019-08-27 13:58 | XR ---
EXAMINATION TYPE: XR chest 1V DATE OF EXAM: 08/27/2019 COMPARISON: 06/22/2019 HISTORY: Chest pain after fall TECHNIQUE: Single frontal view of the chest is obtained. FINDINGS: Lung volumes are present with bibasilar linear subsegmental atelectasis. This creates relative medias tinal widening. There is no focal air space opacity, pleural effusion, or pneumothorax seen. Cardiac loop recorder is seen. The osseous structures are intact. IMPRESSION: Mediastinal widening is likely relative and intravertebral to low lung volumes. Repeat i nspiratory chest x-ray could be considered if there is further concern. Bibasilar subsegmental atelec tasis is also seen.
[2019-08-27 14:00] LABS: Appearance,Urine Clear (Clear); Bilirubin,Urine Negative (Negative); Blood,Urine Negative (Negative); Color,Urine Yellow; Glucose,Urine (UA) Negative (Negative); Ketones,Urine Negative (Negative); Leukocyte Esterase,Urine Negative (Negative); Nitrite,Urine Negative (Negative); PH, Urine 6.5 (5.0-8.0); Protein,Urine Negative (Negative); Specific Gravity,Urine 1.016 (1.001-1.035); Urobilinogen,Urine <2.0 mg/dL (<2.0)
--- NOTE | 2019-08-27 14:00 | XR ---
EXAMINATION TYPE: XR Hip Complete RT DATE OF EXAM: 08/27/2019 CLINICAL HISTORY: Right hip pain after fall TECHNIQUE: AP and frogleg views of the right hip are obtained. COMPARISON: None. FINDINGS: There is a subcapital right hip fracture with 3.4 cm lateral displacement of the distal fra cture fragment and 1.8 cm foreshortening. No comminution is seen. No dislocation. Moderate arthropath y of the right femoral acetabular joint. IMPRESSION: Acute subcapital right hip fracture with lateral displacement and foreshortening as rachana led above.
[2019-08-27 14:12] LABS: Albumin 3.9 g/dL (3.5-5.0); Calcium 10.2 mg/dL (8.4-10.2); Magnesium 2.2 mg/dL (1.6-2.3); Phosphorus 3.1 mg/dL (2.5-4.5); Potassium 4.2 mmol/L (3.5-5.1); Total Bilirubin 0.8 mg/dL (0.2-1.3); Total Protein 6.7 g/dL (6.3-8.2)
[2019-08-27 14:14] LABS: INR 0.9 (<1.2); Partial Thromboplastin Time 26.9 sec (22.0-30.0); Prothrombin Time 9.9 sec (9.0-12.0)
[2019-08-27] MEDS ORDERED: ACETAMINOPHEN TAB 325 MG TAB PO STA ×2 (16:28→16:33)
--- NOTE | 2019-08-27 16:54 | P.CONS ---
History of Present Illness - Reason for Consult Consult date: 08/27/19 - History of Present Illness The patient is an 84-year-old male with a PMH of also has dementia, cardiac murmur, hypertension, and hyperlipidemia who presented to the ED after a fall at his retirement. The history provided by the and the sister at the bedside since the patient has advanced dementia and is a very poor historian. They report that the patient had a fall at his retirement ([facility]), which the family was notified, though initially no action was taken. When the family went to visit the patient the following day, they noted that the patient's mobility was significantly decreased at which time x-rays were ordered. The patient subsequently had the x-rays earlier today where he was not ed to have a right hip fracture and was transferred to the emergency room. The notes that at baseline, the patient is able to hold onto railings at his retirement to walk from one place to the next. At time of interview, the patient himself denied any pain. He also denied nausea, chills, chest pain, or shortness of breath. The patient underwent an extensive evaluation in the emergency room with a right hip x-ray showing an acute subcapital right hip fracture with lateral displacement and foreshortening. EKG revealed normal sinus rhythm at 90 bpm with left posterior fascicular block. No other acute ST/T-wave changes were noted. Laboratory evaluation revealed a WBC count of 11.1, hemoglobin of 12.3, platelets of 254, sodium 139, potassium 4.2, BUN 19, creatinine 1.1, glucose 109, troponin less than 0.012, and a UA that was unremarkable. Review of Systems Pertinent positives and negatives as discussed in HPI, a complete review of systems was performed and all other systems are negative. Past Medical History Past Medical History: Dementia, Hyperlipidemia, Hypertension Additional Past Medical History / Comment(s): Murmur since childhood History of Any Multi-Drug Resistant Organisms: None Reported Past Surgical History: Unable to Obtain Additional Past Surgical History / Comment(s): bilateral knee replacement, r shoulder surgery, cardiac monitior Past Anesthesia/Blood Transfusion Reactions: No Reported Reaction Past Psychological History: Anxiety Smoking Status: Never smoker Past Alcohol Use History: Occasional Past Drug Use History: None Reported - Past Family History Mother Family Medical History: Cancer Father Family Medical History: Myocardial Infarction ([place]) Medications and Allergies Home Medications Medication Instructions Recorded Confirmed Type Aspirin EC [Ecotrin Low Dose] 81 mg PO DAILY 04/30/16 08/27/19 History [place]-3 Fatty Acids/Fish Oil [Fish 1 cap PO HS 04/30/16 08/27/19 History Oil 1,000 mg Softgel] Vitamin E 100 unit PO DAILY 04/30/16 08/27/19 History Multivitamins, Thera [Multivitamin 1 tab PO HS 06/28/18 08/27/19 History (formulary)] QUEtiapine [SEROquel] 100 mg PO HS 02/02/19 08/27/19 History Acetaminophen Tab [Tylenol Tab] 650 mg PO Q6H PRN 06/22/19 08/27/19 History Cholecalciferol [Vitamin D3 (25 1,000 unit PO HS 06/22/19 08/27/19 History Mcg = 1000 Iu)] LORazepam [Ativan] 1 mg PO Q3H PRN 06/22/19 08/27/19 History LORazepam [Ativan] 1 mg PO TID 06/22/19 08/27/19 History Sennosides-Docusate Sodium 2 tab PO HS 06/22/19 08/27/19 History [Senokot-S] Simvastatin [Zocor] 20 mg PO HS 06/22/19 08/27/19 History amLODIPine [Norvasc] 10 mg PO DAILY 06/22/19 08/27/19 History clonazePAM [KlonoPIN] 0.5 mg PO DAILY PRN 06/22/19 08/27/19 History Magnesium Hydroxide [Milk of 2,400 mg PO Q72H PRN 08/27/19 08/27/19 History Magnesia] Allergies Allergy/AdvReac Type Severity Reaction Status Date / Time No Known Allergies Allergy Verified 08/27/19 13:01 Physical Exam Vitals: Vital Signs Temp Pulse Resp BP Pulse Ox 08/27/19 16:00 99.3 F 97 14 164/89 93 L 08/27/19 15:51 98.6 F 91 18 145/73 96 08/27/19 15:30 93 18 160/83 97 08/27/19 15:00 84 16 170/90 95 08/27/19 14:35 98.6 F 91 18 145/73 96 08/27/19 14:30 87 17 161/81 96 08/27/19 14:00 87 16 173/89 99 08/27/19 13:30 86 18 155/65 95 08/27/19 13:00 98.6 F 85 18 165/88 100 08/27/19 12:49 86 18 165/88 96 08/27/19 12:15 98.6 F 91 18 145/73 96 Intake and Output 08/27/19 08/27/19 08/27/19 06:59 14:59 22:59 Other: Weight 81.647 kg General: non toxic, no distress, appears at stated age, normal weight Derm: no unusual rashes/lesions no unusual ecchymoses, warm, dry Head: atraumatic, normocephalic, symmetric Eyes: EOMI, no lid lag, anicteric sclera, pupils equal round reactive to light ENT: Nose and ears atraumatic, no thrush, no pharyngeal erythema Neck: No thyromegaly, no cervical lymphadenopathy, trachea midline, supple Mouth: no lip lesion, mucus membranes moist Cardiovascular: S1S2 reg, loud holosystolic murmur appreciated, positive posterior tibial pulse bilateral, no edema, capillary refill less than 2 seconds Lungs: CTA bilateral, no rhonchi, no rales , no accessory muscle use Abdominal: soft, nontender to palpation, no guarding, no appreciable organomegaly, normal bowel sounds Ext: no gross muscle atrophy, muscle strength 4 out of 5 in all 4 extremities except RLE due to pain, no contractures Neuro: CN II-XI grossly intact, light touch intact all 4 extremities Psych: Awake, oriented only to self Results CBC & Chem 7: 08/27/19 13:35 08/27/19 13:35 Labs: Abnormal Lab Results - Last 24 Hours (Table) 08/27/19 08/27/19 Range/Units 13:35 13:35 WBC 11.1 H (3.8-10.6) k/uL RBC 3.74 L (4.30-5.90) m/uL Hgb 12.3 L (13.0-17.5) gm/dL Hct 36.5 L (39.0-53.0) % Neutrophils # 8.8 H (1.3-7.7) k/uL Glucose 109 H (74-99) mg/dL Assessment and Plan Plan: Traumatic R hip fracture -Orthopedic surgery following -Fall precautions -Complete bed-rest -RCRI score 0 -Pain control Holosystolic cardiac murmur -Obtain echocardiogram -Cardiology consult for risk stratification -Cardiac monitoring Leukocytosis -Likely secondary to acute stress -No discernible infection at this time -Monitor CBC
[2019-08-27 18:19] VITALS: BMI 25.8
[2019-08-27] MEDS: HYDROcodone/APAP 5-325MG 1 EACH TAB PO PRN (18:24)
[2019-08-27] MEDS: SENNOSIDES-DOCUSATE SODIUM 1 EACH TAB PO SCH (21:32)
[2019-08-27] MEDS: LORazepam 1 MG TAB PO SCH (21:32)
[2019-08-27] MEDS: QUEtiapine 100 MG TAB PO SCH (21:32)
[2019-08-27] MEDS: ATORVASTATIN 10 MG TAB PO SCH (21:32)
[2019-08-28] MEDS: HYDROcodone/APAP 5-325MG 1 EACH TAB PO PRN (04:23)
[2019-08-28] MEDS: clonazePAM 0.5 MG TAB PO PRN ×2 (04:25→13:47)
[2019-08-28] MEDS ORDERED: LORazepam 2 MG/ML INJ IV STA ×2 (07:00→21:06)
[2019-08-28] MEDS: ENOXAPARIN 40 MG/0.4 ML SYRINGE SQ SCH (08:30)
[2019-08-28] MEDS: amLODIPine 10 MG TAB PO SCH (08:46)
[2019-08-28] MEDS: LORazepam 1 MG TAB PO SCH ×3 (08:46→21:14)
[2019-08-28] MEDS ORDERED: ASPIRIN 81 MG PO SCH (09:00)
[2019-08-28 09:25] LABS: HCT 34.7 % (39.0-53.0); HGB 11.4 gm/dL (13.0-17.5); MCH 32.7 pg (25.0-35.0); MCHC 32.8 g/dL (31.0-37.0); MCV 99.7 fL (80.0-100.0); Platelet Count 231 k/uL (150-450); RBC 3.48 m/uL (4.30-5.90); RDW 13.1 % (11.5-15.5); WBC 8.4 k/uL (3.8-10.6)
--- NOTE | 2019-08-28 11:00 | ECHOF ---
Referral Reason:murmur MEASUREMENTS -------- HEIGHT: 180.3 cm WEIGHT: 81.6 kg BP: 185/74 RVIDd: 2.8 cm (< 3.3) IVSd: 1.0 cm (0.6 - 1.1) LVIDd: 4.3 cm (3.9 - 5.3) LVPWd: 1.3 cm (0.6 - 1.1) IVSs: 1.9 cm LVIDs: 1.9 cm LVPWs: 1.9 cm LAESV Index (A-L): 36.22 ml/m Ao Diam: 3.5 cm (2.0 - 3.7) AV Cusp: 1.1 cm (1.5 - 2.6) LA Diam: 3.5 cm (2.7 - 3.8) MV EXCURSION: 16.312 mm (> 18.000) MV EF SLOPE: 86 mm/s (70 - 150) EPSS: 1.9 cm MV E Yossi: 0.69 m/s MV DecT: 221 ms MV A Yossi: 1.10 m/s MV E/A Ratio: 0.63 AV maxP.38 mmHg AV meanP.99 mmHg RAP: 5.00 mmHg RVSP: 18.62 mmHg TAPSE: 21.26 mm FINDINGS -------- Sinus rhythm. This was a technically good study. The left ventricular size is normal. There is mild concentric left ventricular hypertrophy. Overa ll left ventricular systolic function is normal with, an EF between 55 - 60 %. Normal LAP Grade 1 D iastolic Dysfunction. The right ventricle is normal in size. The right ventricular systolic function is normal. LA is moderately dilated 34-39 ml/m2 The right atrial size is normal. Aortic valve is trileaflet and is moderately thickened. There is moderate aortic stenosis present. Peak/mean gradient across the Aortic Valve is 40.38mmHg / 23.99mmHg. The mitral valve is normal. The mitral valve leaflets are mildly thickened. Mild mitral annular c alcification present. Mild mitral regurgitation is present. The tricuspid valve appears structurally normal. Mild tricuspid regurgitation present. Right vent ricular systolic pressure is normal at < 35 mmHg. There is no pulmonic regurgitation present. The aortic root size is normal. IVC Not well visulized. There is no pericardial effusion. CONCLUSIONS -------- 1. Sinus rhythm. 2. This was a technically good study. 3. The left ventricular size is normal. 4. There is mild concentric left ventricular hypertrophy. 5. Overall left ventricular systolic function is normal with, an EF between 55 - 60 %. 6. Normal LAP Grade 1 Diastolic Dysfunction. 7. The right ventricle is normal in size. 8. The right ventricular systolic function is normal. 9. LA is moderately dilated 34-39 ml/m2 10. The right atrial size is normal. 11. Aortic valve is trileaflet and is moderately thickened. 12. There is moderate aortic stenosis present. 13. Peak/mean gradient across the Aortic Valve is 40.38mmHg / 23.99mmHg. 14. The mitral valve is normal. 15. The mitral valve leaflets are mildly thickened. 16. Mild mitral annular calcification present. 17. Mild mitral regurgitation is present. 18. The tricuspid valve appears structurally normal. 19. Mild tricuspid regurgitation present. 20. Right ventricular systolic pressure is normal at < 35 mmHg. 21. There is no pulmonic regurgitation present. 22. The aortic root size is normal. 23. IVC Not well visulized. 24. There is no pericardial effusion. [employer]: Gillian Ordoñez RDCS
--- NOTE | 2019-08-28 11:15 | P.HPOR ---
History of Present Illness H&P Date: 08/28/19 Chief Complaint: Right Hip Fracture The patient is an 84-year-old male seen at bedside this morning. He was admitted through the ED yesterday after a fall resulted in a right hip fracture. The patient has dementia and the history is provided by his at the bedside this morning as well as review of records. She reported that the patient had a fall at his custodial ([facility]), which the family was notified, though initially no action was taken. When the family went to visit the patient the following day, they noted that the patient's mobility was significantly decreased at which time x-rays were ordered. The patient subsequently had the x-rays earlier yesterday where he was noted to have a right hip fracture and was transferred to the emergency room. The notes that at baseline, the patient is able to hold onto railings at his custodial to walk from one place to the next. At time of interview, the patient himself denied any pain. He also denied nausea, chills, chest pain, or shortness of breath. PMH includes dementia, cardiac murmur, hypertension, and hyperlipidemia. The patient underwent an extensive evaluation in the emergency room with a right hip x-ray showing an acute subcapital right hip fracture with lateral displacement and foreshortening. EKG revealed normal sinus rhythm at 90 bpm with left posterior fascicular block. No other acute ST/T-wave changes were noted. Laboratory evaluation revealed a WBC count of 11.1, hemoglobin of 12.3, platelets of 254, sodium 139, potassium 4.2, BUN 19, creatinine 1.1, glucose 109, troponin less than 0.012, and a UA that was unremarkable Review of Systems All systems: negative Constitutional: Denies chills, Denies fever Eyes: denies blurred vision, denies pain Ears, nose, mouth and throat: Denies headache, Denies sore throat Cardiovascular: Denies chest pain, Denies shortness of breath Respiratory: Denies cough Gastrointestinal: Denies abdominal pain, Denies diarrhea, Denies nausea, Denies vomiting Musculoskeletal: Denies myalgias Integumentary: Denies pruritus, Denies rash Neurological: Denies numbness, Denies weakness Psychiatric: Denies anxiety, Denies depression Endocrine: Denies fatigue, Denies weight change Past Medical History Past Medical History: Dementia, Hyperlipidemia, Hypertension Additional Past Medical History / Comment(s): Murmur since childhood History of Any Multi-Drug Resistant Organisms: None Reported Past Surgical History: Unable to Obtain Additional Past Surgical History / Comment(s): bilateral knee replacement, r shoulder surgery, cardiac monitior placed 01/2019 Past Anesthesia/Blood Transfusion Reactions: No Reported Reaction Past Psychological History: Anxiety Smoking Status: Former smoker Past Alcohol Use History: Occasional Additional Past Alcohol Use History / Comment(s): started smoking 1950 and quit 1964 smoked less than 1 ppd Past Drug Use History: None Reported - Past Family History Mother Family Medical History: Cancer Father Family Medical History: Myocardial Infarction ([place]) Medications and Allergies Home Medications Medication Instructions Recorded Confirmed Type Aspirin EC [Ecotrin Low Dose] 81 mg PO DAILY 04/30/16 08/27/19 History [place]-3 Fatty Acids/Fish Oil [Fish 1 cap PO HS 04/30/16 08/27/19 History Oil 1,000 mg Softgel] Vitamin E 100 unit PO DAILY 04/30/16 08/27/19 History Multivitamins, Thera [Multivitamin 1 tab PO HS 06/28/18 08/27/19 History (formulary)] QUEtiapine [SEROquel] 100 mg PO HS 02/02/19 08/27/19 History Acetaminophen Tab [Tylenol Tab] 650 mg PO Q6H PRN 06/22/19 08/27/19 History Cholecalciferol [Vitamin D3 (25 1,000 unit PO HS 06/22/19 08/27/19 History Mcg = 1000 Iu)] LORazepam [Ativan] 1 mg PO Q3H PRN 06/22/19 08/27/19 History LORazepam [Ativan] 1 mg PO TID 06/22/19 08/27/19 History Sennosides-Docusate Sodium 2 tab PO HS 06/22/19 08/27/19 History [Senokot-S] Simvastatin [Zocor] 20 mg PO HS 06/22/19 08/27/19 History amLODIPine [Norvasc] 10 mg PO DAILY 06/22/19 08/27/19 History clonazePAM [KlonoPIN] 0.5 mg PO DAILY PRN 06/22/19 08/27/19 History Magnesium Hydroxide [Milk of 2,400 mg PO Q72H PRN 08/27/19 08/27/19 History Magnesia] Allergies Allergy/AdvReac Type Severity Reaction Status Date / Time No Known Allergies Allergy Verified 08/27/19 13:01 Physical Examination Inspection shows a shortened externally rotated right lower extremity. No wounds, no erythema. Hip ROM not tested due to fracture. Motor and sensation groslly intact throughout RLE. Calf is SNT. 2 + DP pulse and less than 2 sec cap refill present Results Xray right hip shows displaced shortened right femoral neck fracture - Labs Labs: Abnormal Lab Results - Last 24 Hours (Table) 08/27/19 08/27/19 08/28/19 Range/Units 13:35 13:35 07:58 WBC 11.1 H (3.8-10.6) k/uL RBC 3.74 L 3.48 L (4.30-5.90) m/uL Hgb 12.3 L 11.4 L (13.0-17.5) gm/dL Hct 36.5 L 34.7 L (39.0-53.0) % Neutrophils # 8.8 H (1.3-7.7) k/uL Glucose 109 H (74-99) mg/dL H & H 08/27/19 08/28/19 Range/Units 13:35 07:58 Hgb 12.3 L 11.4 L (13.0-17.5) gm/dL Hct 36.5 L 34.7 L (39.0-53.0) % Coagulation 08/27/19 Range/Units 13:35 INR 0.9 (<1.2) Result Diagrams: 08/28/19 07:58 08/27/19 13:35 Assessment and Plan Assessment: Right femoral neck fracture Plan: Plan is to proceed with right hip toy-arthroplasty for his right hip fracture. He has been NPO. Medicine and cardiology consulted for clearance. Continue pain management and medical management. He will need placement postop. Time with Patient: Less than 30
--- NOTE | 2019-08-28 11:16 | P.CRDCN ---
History of Present Illness History of present illness: This is a pleasant 84-year-old male past medical history significant for aortic stenosis, hypertension and dyslipidemia. He follows in the office with Dr. Mccain. We have been asked to see him in consultation for pre-operative evaluation. He has a history also of alzheimers and lives at an extended care facility. The information is obtained from the who is at the bedside. He apparently had a fall yesterday while walking in the [place]. Per the she was told that he was simply unsteady and fell. There was no LOC, chest pain, dizziness, nausea, vomiting, diaphoresis or shortness of breath. He is seen and examined laying flat in bed in no acute distress. Clinically he is euvolemic. EKG sinus mechanism heart rate 90 left fasicular block and inferior Q-wave. Non-specific abnormalities. No acute ST or T-wave changes. Chest xray reveals low lung volumes causing relative mediastinal widening. Right hip xray reveals acute subcapital right hip fracture and lateral displacement and foreshortening. Laboratory data reviewed, WBC 8.4, hemoglobin 11.4, platelets 231, sodium 139, potassium 4.2, creatinine 1.21, magnesium 2.2 and troponin negative 1. Current daily cardiac medications include aspirin 81 mg daily, simvastatin 20 mg daily and amlodipine 10 mg daily. Echocardiogram obtained reveals preserved LV systolic function with ejection fraction 55-60%, grade 1 diastolic dysfunction, moderately dilated left atrium, moderate aortic stenosis with a mean gradient of 23 mmHg, mild mitral regurgitation. At the time of my exam: CONSTITUTIONAL: Denies fever. Denies chills. EYES: Denies blurred vision. Denies vision changes. Denies eye pain. EARS, NOSE, MOUTH & THROAT: Denies headache. Denies sore throat. Denies ear pain. CARDIOVASCULAR: Denies chest pain. Denies shortness of breath. Denies orthopnea. Denies PND. Denies palpitations. RESPIRATORY: Denies cough. GASTROINTESTINAL: Denies abdominal pain. Denies diarrhea. Denies constipation. Denies nausea. Denies vomiting. MUSCULOSKELETAL: Denies myalgias. INTEGUMENTARY: Denies pruitis. Denies rash. NEUROLOGIC: Denies numbness. Denies tingling. Denies weakness. PSYCHIATRIC: Denies anxiety. Denies depression. ENDOCRINE: Denies fatigue. Denies weight change. Denies polydipsia. Denies polyurina. GENITOURINARY: Denies burning, hematuria or urgency with micturation. HEMATOLOGIC: Denies history of anemia. Denies bleeding. Blood pressure 185/74 heart rate 82 afebrile and maintaining oxygen saturation on room air GENERAL: This is a 84-year-old male in no apparent distress at the time of my examination. HEENT: Head is atraumatic, normocephalic. Pupils are equal, round. Sclerae anicteric. Conjunctivae are clear. Mucous membranes of the mouth are moist. Neck is supple. There is no jugular venous distention. No carotid bruit is heard. LUNGS: Clear to auscultation no wheezes, rales or rhonchi. No chest wall tenderness is noted on palpation or with deep breathing. HEART: Regular rate and rhythm with systolic ejection murmur at the base, no rubs or gallops. S1 and S2 heard. ABDOMEN: Soft, nontender. Bowel sounds are heard. No organomegaly noted. EXTREMITIES: No evidence of peripheral edema and no calf tenderness noted. VASCULAR: Radial and dorsalis pedis pulses palpated, no evidence of clubbing. NEUROLOGIC: Patient is awake, alert to self. ASSESSMENT Right hip fracture Aortic stenosis, moderate Hypertension Dyslipidemia PLAN He is stable from a cardiac perspective. Clinically euvolemic with no symptoms of angina. He is moderate risk for surgery secondary to valvular heart disease, however there is no absolute contraindication. Recommend cautious fluid administration. This has been explained in great detail to the patient's . Thank you kindly for this consultation. Nurse Practitioner note has been reviewed, I agree with a documented findings and plan of care. Patient was seen and examined. Past Medical History Past Medical History: Dementia, Hyperlipidemia, Hypertension Additional Past Medical History / Comment(s): Murmur since childhood History of Any Multi-Drug Resistant Organisms: None Reported Past Surgical History: Unable to Obtain Additional Past Surgical History / Comment(s): bilateral knee replacement, r becky ulder surgery, cardiac monitior placed 01/2019 Past Anesthesia/Blood Transfusion Reactions: No Reported Reaction Past Psychological History: Anxiety Smoking Status: Former smoker Past Alcohol Use History: Occasional Additional Past Alcohol Use History / Comment(s): started smoking 1950 and quit 1964 smoked less than 1 ppd Past Drug Use History: None Reported - Past Family History Mother Family Medical History: Cancer Father Family Medical History: Myocardial Infarction ([place]) Medications and Allergies Home Medications Medication Instructions Recorded Confirmed Type Aspirin EC [Ecotrin Low Dose] 81 mg PO DAILY 04/30/16 08/27/19 History [place]-3 Fatty Acids/Fish Oil [Fish 1 cap PO HS 04/30/16 08/27/19 History Oil 1,000 mg Softgel] Vitamin E 100 unit PO DAILY 04/30/16 08/27/19 History Multivitamins, Thera [Multivitamin 1 tab PO HS 06/28/18 08/27/19 History (formulary)] QUEtiapine [SEROquel] 100 mg PO HS 02/02/19 08/27/19 History Acetaminophen Tab [Tylenol Tab] 650 mg PO Q6H PRN 06/22/19 08/27/19 History Cholecalciferol [Vitamin D3 (25 1,000 unit PO HS 06/22/19 08/27/19 History Mcg = 1000 Iu)] LORazepam [Ativan] 1 mg PO Q3H PRN 06/22/19 08/27/19 History LORazepam [Ativan] 1 mg PO TID 06/22/19 08/27/19 History Sennosides-Docusate Sodium 2 tab PO HS 06/22/19 08/27/19 History [Senokot-S] Simvastatin [Zocor] 20 mg PO HS 06/22/19 08/27/19 History amLODIPine [Norvasc] 10 mg PO DAILY 06/22/19 08/27/19 History clonazePAM [KlonoPIN] 0.5 mg PO DAILY PRN 06/22/19 08/27/19 History Magnesium Hydroxide [Milk of 2,400 mg PO Q72H PRN 08/27/19 08/27/19 History Magnesia] Allergies Allergy/AdvReac Type Severity Reaction Status Date / Time No Known Allergies Allergy Verified 08/27/19 13:01 Physical Exam Vitals: Vital Signs Temp Pulse Pulse Resp BP BP Pulse Ox 08/28/19 04:30 98.2 F 82 20 185/74 98 08/28/19 00:00 18 08/27/19 18:27 18 08/27/19 16:54 99.3 F 90 18 169/86 98 08/27/19 16:00 99.3 F 97 14 164/89 93 L 08/27/19 15:51 98.6 F 91 18 145/73 96 08/27/19 15:30 93 18 160/83 97 08/27/19 15:00 98.7 F 84 87 16 170/90 187/81 95 08/27/19 14:35 98.6 F 91 18 145/73 96 08/27/19 14:30 87 17 161/81 96 08/27/19 14:00 87 16 173/89 99 08/27/19 13:30 86 18 155/65 95 08/27/19 13:00 98.6 F 85 18 165/88 100 08/27/19 12:49 86 18 165/88 96 08/27/19 12:15 98.6 F 91 18 145/73 96 Intake and Output 08/27/19 08/28/19 08/28/19 22:59 06:59 14:59 Intake Total 0 Balance 0 Intake: Oral 0 Other: Voiding Method Diaper Diaper Incontinent Incontinent Incontinent # Voids 1 3 # Bowel Movements 0 Results 08/28/19 07:58 08/27/19 13:35 Cardiac Enzymes 08/27/19 08/27/19 Range/Units 13:35 13:35 AST 29 (17-59) U/L Troponin I <0.012 (0.000-0.034) ng/mL Coagulation 08/27/19 Range/Units 13:35 PT 9.9 (9.0-12.0) sec APTT 26.9 (22.0-30.0) sec CBC 08/27/19 08/28/19 Range/Units 13:35 07:58 WBC 11.1 H 8.4 (3.8-10.6) k/uL RBC 3.74 L 3.48 L (4.30-5.90) m/uL Hgb 12.3 L 11.4 L (13.0-17.5) gm/dL Hct 36.5 L 34.7 L (39.0-53.0) % Plt Count 254 231 (150-450) k/uL Comprehensive Metabolic Panel 08/27/19 Range/Units 13:35 Sodium 139 (137-145) mmol/L Potassium 4.2 (3.5-5.1) mmol/L Chloride 107 (98-107) mmol/L Carbon Dioxide 26 (22-30) mmol/L BUN 19 (9-20) mg/dL Creatinine 1.21 (0.66-1.25) mg/dL Glucose 109 H (74-99) mg/dL Calcium 10.2 (8.4-10.2) mg/dL AST 29 (17-59) U/L ALT 23 (21-72) U/L Alkaline Phosphatase 99 (38-126) U/L Total Protein 6.7 (6.3-8.2) g/dL Albumin 3.9 (3.5-5.0) g/dL Current Medications Generic Name Dose Route Start Last Admin Trade Name Freq PRN Reason Stop Dose Admin Hydrocodone Bitart/Acetaminophen 1 each 08/27/19 16:49 08/27/19 18:24 [place] 5-325 PO 1 each Q6HR PRN Administration Pain Amlodipine Besylate 10 mg 08/28/19 09:00 08/28/19 08:46 Norvasc PO 10 mg DAILY MARTHA Administration Aspirin 81 mg 08/28/19 09:00 08/28/19 08:30 Aspirin PO Not Given DAILY MARTHA Atorvastatin Calcium 10 mg 08/27/19 21:00 08/27/19 21:32 Lipitor PO 10 mg HS MARTHA Administration Clonazepam 0.5 mg 08/27/19 17:10 Klonopin PO DAILY PRN Anxiety Enoxaparin Sodium 40 mg 08/28/19 09:00 08/28/19 08:30 Lovenox SQ Not Given DAILY MARTHA Lorazepam 1 mg 08/27/19 22:00 08/28/19 08:46 Ativan PO 1 mg TID MARTHA Administration Quetiapine Fumarate 100 mg 08/27/19 21:00 08/27/19 21:32 Seroquel PO 100 mg HS MARTHA Administration Senna/Docusate Sodium 2 each 08/27/19 21:00 08/27/19 21:32 Senokot-S PO 2 each HS MARTHA Administration Intake and Output 08/27/19 08/28/19 08/28/19 22:59 06:59 14:59 Intake Total 0 Balance 0 Intake: Oral 0 Other: Voiding Method Diaper Diaper Incontinent Incontinent Incontinent # Voids 1 3 # Bowel Movements 0 08/28/19 07:58 08/27/19 13:35
--- NOTE | 2019-08-28 12:06 | P.PN ---
Subjective Progress Note Date: 08/28/19 The patient is an 84-year-old male with a PMH of Alzheimer's dementia, hypertension, and hyperlipidemia who presented to the ED after a fall at his long-term. The patient is a very poor historian and therefore history was obtained by his at the bedside. The patient was noted to have a right hip fracture after the fall and was transferred to the emergency room. The patient had undergone an extensive evaluation with an EKG showing normal sinus rhythm at 90 bpm with a left posterior fascicular block and no ST/T-wave changes. Laboratory evaluation revealed WBC count of 11.1, hemoglobin 12.3, platelets 254, sodium 139, BUN 19, creatinine 1.1, and troponin less than 0.01. The patient was seen and examined at the bedside on 08/28. He was agitated over-night and required close nursing monitoring. He denied any pain at the time of the interview, though a full ROS couldn't be conducted since patient a very poor historian. Objective - Vital Signs Vital signs: Vital Signs Temp 98.2 F 08/28/19 04:30 Pulse 82 08/28/19 04:30 Resp 20 08/28/19 04:30 BP 185/74 08/28/19 04:30 Pulse Ox 98 08/28/19 04:30 Intake & Output 08/27/19 08/28/19 08/28/19 18:59 06:59 18:59 Intake Total 0 Balance 0 Weight 81.647 kg Intake: Oral 0 Other: Voiding Method Diaper Diaper Incontinent Incontinent Incontinent # Voids 3 # Bowel Movements 0 - Exam General: Non-toxic, in no acute distress, appears stated age, normal weight HEENT: NC/AT, anicteric sclerae, moist conjunctiva, no lid-lag, PERRLA Cardiovascular: S1/S2 wnl, no murmurs, rubs, or gallops Lungs: Clear to auscultation, normal respiratory effort, no accessory muscle use Abdominal: Soft, non-tender, non-distended, no guarding, rebound, or rigidity Skin: Warm, dry Extremities: No edema or contractures Psychiatric: Awake, oriented only to self Neuro: CN II-XII grossly intact, no focal deficits - Labs CBC & Chem 7: 08/28/19 07:58 08/27/19 13:35 Labs: Abnormal Lab Results - Last 24 Hours (Table) 08/27/19 08/27/19 08/28/19 Range/Units 13:35 13:35 07:58 WBC 11.1 H (3.8-10.6) k/uL RBC 3.74 L 3.48 L (4.30-5.90) m/uL Hgb 12.3 L 11.4 L (13.0-17.5) gm/dL Hct 36.5 L 34.7 L (39.0-53.0) % Neutrophils # 8.8 H (1.3-7.7) k/uL Glucose 109 H (74-99) mg/dL Assessment and Plan Plan: Traumatic R hip fracture -Orthopedic surgery planning for right hip hemiarthroplasty -Fall precautions -Complete bed-rest -RCRI score 0 -Pain control -Patient is intermediate risk for this orthopedic procedure. He is currently optimized with no absolute contraindications. Judicious use of IV fluids advised. Cardiology recommendations appreciated. Cardiac murmur, likely secondary to moderate aortic stenosis -Echocardiogram reviewed HTN, HLD -C/w home meds: Lipitor 10, Norvasc 10 Leukocytosis, resolved Normocytic anemia -Likely due to acute stress along with IV hydration -Monitor CBC for now
[2019-08-28] MEDS ORDERED: fentaNYL (PF) 50 MCG/ML 2 ML AMP IV ONE ×2 (14:35→16:55)
[2019-08-28] MEDS ORDERED: IV FLUID CONTINUATION 1,000 ML IV ONE (16:25)
[2019-08-28] MEDS ORDERED: TRANEXAMIC ACID 1,000 MG in SODIUM CHLORIDE 0.9% 100 ML IV STA (17:09)
[2019-08-28] MEDS ORDERED: TRANEXAMIC ACID 1,000 MG in SODIUM CHLORIDE 0.9% 100 ML IVPB ONE ×2 (17:13→17:14)
[2019-08-28] MEDS ORDERED: PROPOFOL 10 MG/ML 20 ML VIAL IV ONE (17:28)
[2019-08-28] MEDS ORDERED: fentaNYL (PF) 50 MCG/ML 2 ML AMP ONE (17:28)
[2019-08-28] MEDS ORDERED: LIDOCAINE 1% INJ 10MG/ML (20 ML MDV) ONE (17:28)
[2019-08-28] MEDS ORDERED: TRANEXAMIC ACID 1,000 MG/10 ML VIAL ONE (17:28)
[2019-08-28] MEDS ORDERED: SUCCINYLCHOLINE CHLORIDE 100 MG/5 ML SYR IV ONE (17:28)
[2019-08-28] MEDS ORDERED: SODIUM CHLORIDE 0.9% 100 ML BAG ONE (17:28)
[2019-08-28] MEDS ORDERED: ONDANSETRON 4 MG/2 ML VIAL IVP PRN (17:32)
[2019-08-28] MEDS ORDERED: HYDROcodone/APAP 5-325MG 1 EACH TAB PO PRN ×2 (17:32)
[2019-08-28] MEDS ORDERED: traMADol 50 MG TAB PO PRN (17:32)
[2019-08-28] MEDS ORDERED: MAGNESIUM HYDROXIDE 2,400 MG/10 ML CUP PO PRN (17:32)
[2019-08-28] MEDS ORDERED: HYDROmorphone 0.5 MG/0.5 ML SYRINGE IVP PRN ×3 (17:32)
[2019-08-28] MEDS ORDERED: NALOXONE 0.4 MG/ML 1 ML VIAL IV PRN (17:32)
[2019-08-28] MEDS ORDERED: ceFAZolin 3,000 MG in SODIUM CHLORIDE 0.9% IRRIGATIO 3,000 ML IRRIGATION ONE (18:02)
[2019-08-28] MEDS ORDERED: LACTATED RINGERS 1,000 ML IV ONE (18:06)
--- NOTE | 2019-08-28 19:20 | XR ---
EXAMINATION TYPE: XR Hip Limited RT DATE OF EXAM: 08/28/2019 CLINICAL HISTORY: Right hip fracture. TECHNIQUE: Single AP portable view of right hip is obtained immediately postoperatively. COMPARISON: Right hip x-ray from yesterday. FINDINGS: Metallic hardware from right hip arthroplasty is seen and appears satisfactory in alignment and position. There is evidence of recent surgery with subcutaneous gas noted laterally. IMPRESSION: Metallic hardware from right hip arthroplasty is satisfactory in position.
[2019-08-28] MEDS: LACTATED RINGERS 1,000 ML IV SCH (19:30)
[2019-08-28] MEDS: ASPIRIN 325 MG TAB PO SCH (21:09)
[2019-08-28] MEDS: SENNOSIDES-DOCUSATE SODIUM 1 EACH TAB PO SCH (21:09)
[2019-08-28] MEDS: QUEtiapine 100 MG TAB PO SCH (21:09)
[2019-08-28] MEDS: ATORVASTATIN 10 MG TAB PO SCH (21:09)
--- NOTE | 2019-08-29 00:28 | OP ---
OPERATIVE REPORT DATE OF PROCEDURE: 08/28/2019. PREOPERATIVE DIAGNOSIS: Right displaced femoral neck fracture. POSTOP DIAGNOSIS: Right displaced femoral neck fracture. PROCEDURE: Right hip hemiarthroplasty. SURGEON: Roland Bardales M.D. PIGS FEET CLEANER: Johnson OROPEZA. ANESTHESIA: General endotracheal. ESTIMATED BLOOD LOSS: 75 mL. TOURNIQUET: None. DRAINS: None. COMPLICATIONS: None apparent. DISPOSITION: Postanesthesia care unit. HISTORY OF PRESENT ILLNESS: Mr. Thornton is a very pleasant 84-year-old male who lives at the [facility]. He does carry a medical diagnosis of Alzheimer's dementia. He apparently fell yesterday at the [facility]. Brought to [facility]. Workup including x-rays revealed a right displaced femoral neck fracture. I had a long talk with his and his family with regard to treatment options. The recommendation was for right hip hemiarthroplasty. He does ambulate with a walker at the assisted. They wish to proceed with operative intervention. The risks of procedure were discussed with the family in detail. These risks include, but are not limited to risk of infection, nerve damage, bleeding, pain, and a small risk of deep vein thrombosis which could lead to fatal pulmonary embolism. Further risks include risk of deep infection as well as instability in the hip and periprosthetic fracture. All of Mrs. Thornton's questions were answered to her satisfaction. Appropriate informed consent was obtained. DETAILS OF THE PROCEDURE: The patient identified in preoperative holding area. Surgical sites marked by both the patient and myself. He was given 2 g of Ancef IV for prophylactic purposes. He was then transferred to the operative suite. He was placed supine on the operative table. General anesthetic was then administered and dosed per the anesthesia without apparent complication. He was then placed in the left lateral decubitus position well-padded in preparation for surgery. Great care was taken to ensure that appropriately padded axillary roll was placed as well as padding underneath his legs. The patient's right lower extremity was then prepped and draped in usual sterile fashion. Standard surgical pause undertaken to ensure that we we were operating on the correct site and that appropriate preoperative antibiotics were given. All staff were in agreement and we proceeded. The outlines of the greater trochanter as well as the proximal femur were marked with a surgical pen. A planned 10, 12 cm incision starting at the approximately 3 cm proximal to the tip of the greater trochanter and then extending in line with the shaft femur was then made with a surgical pen. Incision was then made with a 10 blade scalpel. Dissection carried down sharply to the tensor fascia. The hemostasis was achieved electrocautery. The tensor fascia was then incised in line with the incision. A Charnley retractor was then placed. This exposed the underlying gluteus medius muscle and the greater trochanter. I then found the raphae between the anterior third and posterior 2/3 of the gluteus medius. I then performed a Hardinge type anterolateral approach to the hip. The anterior 1/3 of the gluteus medius, gluteus minimus and capsule were then taken off as a sleeve off the anterior third of the greater trochanter. I then utilized the guide to bryn for a freshened femoral neck cut. A fresh femoral neck cut was then made with the reciprocating saw. The [place] femoral head was then removed with a corkscrew device. The acetabulum was then inspected. There were no loose bodies in the acetabulum. The acetabular cartilage was very well preserved. There was no evidence of fracture. The [place] femoral head was measured. Measured a 55. Fifty-five trial head was then placed onto the lollipop. Had an excellent suction fit in the acetabulum. I then flexed the hip and externally rotated the hip over the front of his body giving excellent exposure of the proximal femur. The box press operator was then used to gain access to the femoral canal. I then utilized a starting reamer. I then reamed the femoral canal starting with a 7 mm reamer up to a 10 reamer. Excellent contact with the 10 reamer. I then proceeded to broach the proximal femur. Started with a size 7 broach. The proximal femur was then broached incrementally in approximately 15 degrees of anteversion up to a size 10 broach. The broach had excellent fit. The proximal femur. It was very secure. I then trialed with a -3 neck and a 55 head. Hip was then reduced. It was very stable. Taken through full range of motion. There is no instability. There was very minimal Shuck. I decided to proceed with a -3 neck and a 55 monopolar head and a size 10 stem. The hip was then very carefully redislocated. The trial components were removed. The proximal femur and the acetabulum were thoroughly irrigated with sterile saline with antibiotic added. I then impacted the real stem. A size 10 Biomet Bimetric stem. It was a collared stem. It was impacted in approximately 10-15 degrees of anteversion. A very secure fit. The neck was then dried carefully dried and the Tracy taper of the 55 monopolar head and -3 neck were then impacted onto the dried stem. The hip was then reduced. It was again taken through full range of motion. There was very stable. There was very minimal shuck. The leg lengths were approximately equal. At this point, we proceeded with closure. Again, the wound was thoroughly irrigated with sterile saline solution with antibiotic added via pulse lavage. The anterior capsule, gluteus medius and gluteus minimus were repaired back to the greater trochanter with #5 Ethibond transosseous suture. The raphae between the anterior third and posterior 2/3 of the gluteus medius were closed with #1 Vicryl interrupted suture. Again the wound was thoroughly irrigated with sterile saline solution with antibiotic added via pulse lavage. The tensor fascia was then closed with running #2 Quill suture. Subcutaneous tissue closed with 2-0 Vicryl interrupted suture. The skin was closed with a running 3-0 Quill suture. Dermabond was applied to the incision. Sterile compressive dressings were applied. The patient's lower extremities, placed into a hip abduction pillow. All sponge and needle counts were deemed correct prior to closure. The patient tolerated the procedure without apparent complication. He is transferred recovery room in stable condition. MMODL / IJN: [id number] /
[2019-08-29] MEDS: LORazepam 1 MG TAB PO SCH ×3 (08:09→22:17)
[2019-08-29] MEDS: amLODIPine 10 MG TAB PO SCH (08:09)
[2019-08-29] MEDS: MULTIVITAMINS, THERA 1 EACH TAB PO SCH (08:09)
[2019-08-29] MEDS: ENOXAPARIN 40 MG/0.4 ML SYRINGE SQ SCH (08:09)
[2019-08-29] MEDS: LACTATED RINGERS 1,000 ML IV SCH ×2 (08:09→22:16)
[2019-08-29] MEDS: ASPIRIN 325 MG TAB PO SCH ×2 (08:09→22:17)
[2019-08-29 08:23] LABS: Basophils # (A) 0.1 k/uL (0-0.2); Basophils % (A) 1 %; Eosinophils % (A) 0 %; HCT 34.3 % (39.0-53.0); HGB 10.8 gm/dL (13.0-17.5); Lymphocytes # (A) 0.7 k/uL (1.0-4.8); Lymphocytes % (A) 6 %; MCH 31.6 pg (25.0-35.0); MCHC 31.6 g/dL (31.0-37.0); MCV 100.2 fL (80.0-100.0); Mean Platelet Volume 7.5; Monocytes # (A) 0.7 k/uL (0-1.0); Monocytes % (A) 7 %; Neutrophils # (A) 9.3 k/uL (1.3-7.7); Neutrophils % (A) 85 %; Platelet Count 246 k/uL (150-450); RBC 3.42 m/uL (4.30-5.90); RDW 13.2 % (11.5-15.5); WBC 10.9 k/uL (3.8-10.6)
--- NOTE | 2019-08-29 09:33 | P.PN ---
Subjective Progress Note Date: 08/29/19 Principal diagnosis: Right Hip fracture Patient is seen at bedside this morning. He is postop day #1 from right hip toy arthroplasty.. He has minimal pain at the surgical site as expected but denies any new complaints. He denies numbness, tingling or calf pain. Review of systems is negative for fever, chills, chest pain, shortness of breath or other Objective - Vital Signs Vital signs: Vital Signs Temp 98.3 F 08/29/19 07:00 Pulse 93 08/29/19 07:00 Resp 16 08/29/19 07:00 BP 166/77 08/29/19 07:00 Pulse Ox 96 08/29/19 07:00 Intake & Output 08/28/19 08/29/19 08/29/19 18:59 06:59 18:59 Intake Total 1051 800 Output Total 75 Balance 976 800 Intake: IV 1051 Intake, IV Titration 800 Amount Lactated Ringers 1,000 ml 750 @ 75 mls/hr IV .[id number] MARTHA Rx#:[id number] ceFAZolin 2 gm In Sodium 50 Chloride 0.9% 50 ml @ 100 mls/hr IVPB Q8H MARTHA Rx#: [id number] Output: Estimated Blood Loss 75 Other: Voiding Method Incontinent # Voids 4 2 - Exam Inspection reveals a benign surgical wound. There is no active bleeding or drainage. Neurovascular status is intact throughout the lower extremity with motor and sensation fully intact. Calf is soft and nontender. 2+ dorsalis pedis pulse and less than 2 second cap refill is present. - Constitutional General appearance: Present: no acute distress - Labs CBC & Chem 7: 08/29/19 07:16 08/27/19 13:35 Labs: Abnormal Lab Results - Last 24 Hours (Table) 08/29/19 Range/Units 07:16 WBC 10.9 H (3.8-10.6) k/uL RBC 3.42 L (4.30-5.90) m/uL Hgb 10.8 L (13.0-17.5) gm/dL Hct 34.3 L (39.0-53.0) % MCV 100.2 H (80.0-100.0) fL Neutrophils # 9.3 H (1.3-7.7) k/uL Lymphocytes # 0.7 L (1.0-4.8) k/uL Assessment and Plan (1) Fracture of hip Narrative/Plan: He will continue with routine postop orthopedic protocol including pain management, wound care, PT, DVT prophylaxis and medical management. Expect that he will transfer to [facility] in next 1-2 days Current Visit: Yes Status: Acute Priority: Medium Code(s): S72.009A - FRACTURE OF UNSP PART OF NECK OF UNSP FEMUR, INIT SNOMED Code(s): 744093909 Time with Patient: Less than 30
[2019-08-29] MEDS: clonazePAM 0.5 MG TAB PO PRN (11:51)
--- NOTE | 2019-08-29 12:53 | P.PN ---
Subjective This is a pleasant 84-year-old male past medical history significant for aortic stenosis, hypertension and dyslipidemia. He follows in the office with Dr. Mccain. We have been asked to see him in consultation for pre-operative evaluation. He has a history also of alzheimers and lives at an extended care facility. The information is obtained from the who is at the bedside. He apparently had a fall yesterday while walking in the [place]. Per the she was told that he was simply unsteady and fell. There was no LOC, chest pain, di zziness, nausea, vomiting, diaphoresis or shortness of breath. He is seen and examined laying flat in bed in no acute distress. Clinically he is euvolemic. EKG sinus mechanism heart rate 90 left fasicular block and inferior Q-wave. Non- specific abnormalities. No acute ST or T-wave changes. Chest xray reveals low lung volumes causing relative mediastinal widening. Right hip xray reveals acute subcapital right hip fracture and lateral displacement and foreshortening. Laboratory data reviewed, WBC 8.4, hemoglobin 11.4, platelets 231, sodium 139, potassium 4.2, creatinine 1.21, magnesium 2.2 and troponin negative 1. Current daily cardiac medications include aspirin 81 mg daily, simvastatin 20 mg daily and amlodipine 10 mg daily. Echocardiogram obtained reveals preserved LV systolic function with ejection fraction 55-60%, grade 1 diastolic dysfunction, moderately dilated left atrium, moderate aortic stenosis with a mean gradient of 23 mmHg, mild mitral regurgitation. 08/29/2019 Patient underwent a right hip toy-arthroplasty with Dr. Bardales. He is seen and examined sitting up in the chair. He is pleasantly confused with a sitter at the bedside. He denies chest pain or shortness of breath. Blood pressure 166/77 heart rate 93 afebrile and maintaining oxygen saturation on room air. Laboratory data reviewed, WBC 10.9, hemoglobin 10.8, platelets 246. GENERAL: This is a 84-year-old male in no apparent distress at the time of my examination. HEENT: Head is atraumatic, normocephalic. Pupils are equal, round. Sclerae anicteric. Conjunctivae are clear. Mucous membranes of the mouth are moist. Neck is supple. There is no jugular venous distention. No carotid bruit is heard. LUNGS: Clear to auscultation no wheezes, rales or rhonchi. No chest wall tenderness is noted on palpation or with deep breathing. HEART: Regular rate and rhythm with systolic ejection murmur at the base, no rubs or gallops. S1 and S2 heard. EXTREMITIES: No evidence of peripheral edema and no calf tenderness noted. ASSESSMENT Right hip fracture status post right hip hemiarthroplasty, postoperative day #1 Aortic stenosis, moderate Hypertension Dyslipidemia PLAN Stable from a cardiac perspective. Follow-up with Dr. Mccain upon discharge. We will continue to follow as needed. Nurse Practitioner note has been reviewed, I agree with a documented findings and plan of care. Patient was seen and examined. Objective - Vital Signs Vital signs: Vital Signs Temp 98.3 F 08/29/19 07:00 Pulse 93 08/29/19 07:00 Resp 16 08/29/19 07:00 BP 166/77 08/29/19 07:00 Pulse Ox 96 08/29/19 07:00 Intake & Output 08/28/19 08/29/19 08/29/19 18:59 06:59 18:59 Intake Total 1051 800 118 Output Total 75 Balance 976 800 118 Intake: IV 1051 Intake, IV Titration 800 Amount Lactated Ringers 1,000 ml 750 @ 75 mls/hr IV .[id number] MARTHA Rx#:[id number] ceFAZolin 2 gm In Sodium 50 Chloride 0.9% 50 ml @ 100 mls/hr IVPB Q8H MARTHA Rx#: [id number] Oral 118 Output: Estimated Blood Loss 75 Other: Voiding Method Incontinent # Voids 4 2 - Labs CBC & Chem 7: 08/29/19 07:16 08/27/19 13:35 Labs: Abnormal Lab Results - Last 24 Hours (Table) 08/29/19 Range/Units 07:16 WBC 10.9 H (3.8-10.6) k/uL RBC 3.42 L (4.30-5.90) m/uL Hgb 10.8 L (13.0-17.5) gm/dL Hct 34.3 L (39.0-53.0) % MCV 100.2 H (80.0-100.0) fL Neutrophils # 9.3 H (1.3-7.7) k/uL Lymphocytes # 0.7 L (1.0-4.8) k/uL
--- NOTE | 2019-08-29 13:20 | CDI ---
Documentation Clarification Form Date: 08/29/2019 1:08:34 PM From: Kathleen Cormier RN, CCDS Admit Date: 08/27/2019 1:09:00 PM Patient Name: Itz Thornton Visit Number: [id number] ATTENTION: The Clinical Documentation Specialists (CDI) and [facility] Coding Staff appreciate your assistance in clarifying documentation. Please respond to the clarification below the line at the bottom and electronically sign. The CDI & [facility] Coding staff will review the response and follow-up if needed. Please note: Queries are made part of the Legal Health Record. If you have any questions, please contact the author of this message via ITS. Dr. Roland Mclean declining Hgb and Hct have been noted and lacks specificity to accurately reflect your patients severity of condition and clarification is needed. History/Risk Factors: Fall at care home, aortic stenosis, [place] Clinical indicators: 08/28/19 Medical Progress Note: Normocytic anemia d/t acute stress with IV hydration Hemoglobin: 12.3/11.4/10.8 Hematocrit:36.5/34.7/34.3 Treatment: labs AM Daily 1L IVF Bolus In order to capture the severity of condition, please clarify the clinical significance of the declining Hgb and Hct and etiology if known: Acute blood loss anemia Acute on chronic blood loss anemia Chronic blood loss anemia Iron deficiency anemia Nutritional anemia Anemia of chronic disease Unable to determine Other, please specify Please also indicate if d/t surgical procedure or underlying co morbid conditions An expected post-procedural or post-surgical condition An unexpected post-procedural or post-surgical condition related to surgical care (a complication of care) An unexpected post-procedural or post-surgical condition, related to the patients underlying medical co morbidities Other, please specify ____ Unable to determine (Last Revision: August 2017) MTDD
--- NOTE | 2019-08-29 13:34 | CDI ---
Documentation Clarification Form Date: 08/29/2019 1:21:15 PM From: aKthleen Cormier RN, CCDS Admit Date: 08/27/2019 1:09:00 PM Patient Name: Itz Thornton Visit Number: [id number] ATTENTION: The Clinical Documentation Specialists (CDI) and [facility] Coding Staff appreciate your assistance in clarifying documentation. Please respond to the clarification below the line at the bottom and electronically sign. The CDI & [facility] Coding staff will review the response and follow-up if needed. Please note: Queries are made part of the Legal Health Record. If you have any questions, please contact the author of this message via ITS. Dr. Ramon Mar Altered Mental Status was documented in the progress notes and requires further specificity. History/Risk Factors: L hip FX with replacement this admission, dementia, HTN, Hyperlipidemia, fall at intermediate Clinical Indicators: 08/28 Medical Progress Note: "He was agitated over-night and required close nursing monitoring." 08/29 Ortho Progress Note: "He is pleasantly confused with a sitter at the bedside." Labs: Hob 12.3/10.8 08/27 CXR: subsegmental atelectasis. Treatment: Chester 5/325 PO Q 6 hrs PRN Pain Klonopin PO QD for anxiety IV LR @ 75 cc/hr Ativan 1 mg IVP IVF In your professional opinion, please clarify the etiology of the Altered Mental Status, if known. Dementia -- Alzheimer's dementia (Last Revision: February 2018) MTDD
--- NOTE | 2019-08-29 15:35 | P.PN ---
Subjective Progress Note Date: 08/29/19 The patient is an 84-year-old male with a PMH of Alzheimer's dementia, hypertension, and hyperlipidemia who presented to the ED after a fall at his residential. The patient is a very poor historian and therefore history was obtained by his at the bedside. The patient was noted to have a right hip fracture after the fall and was transferred to the emergency room. The patient had undergone an extensive evaluation with an EKG showing normal sinus rhythm at 90 bpm with a left posterior fascicular block and no ST/T-wave changes. Laboratory evaluation revealed WBC count of 11.1, hemoglobin 12.3, platelets 254, sodium 139, BUN 19, creatinine 1.1, and troponin less than 0.01. The patient underwent a successful right hip hemiarthroplasty on 08/28. The patient was seen and examined at the bedside on 08/29, at the bedside. The patient was able to ambulate earlier today at the bedside, as per the . The patient is a very poor historian and answering no to all questions. Objective - Vital Signs Vital signs: Vital Signs Temp 98.3 F 08/29/19 07:00 Pulse 93 08/29/19 07:00 Resp 16 08/29/19 07:00 BP 166/77 08/29/19 07:00 Pulse Ox 96 08/29/19 07:00 Intake & Output 08/28/19 08/29/19 08/29/19 18:59 06:59 18:59 Intake Total 1051 800 118 Output Total 75 Balance 976 800 118 Intake: IV 1051 Intake, IV Titration 800 Amount Lactated Ringers 1,000 ml 750 @ 75 mls/hr IV .[id number] MARTHA Rx#:[id number] ceFAZolin 2 gm In Sodium 50 Chloride 0.9% 50 ml @ 100 mls/hr IVPB Q8H MARTHA Rx#: [id number] Oral 118 Output: Estimated Blood Loss 75 Other: Voiding Method Incontinent # Voids 4 2 2 - Exam General: Non-toxic, in no acute distress, appears stated age, normal weight HEENT: NC/AT, anicteric sclerae, moist conjunctiva, no lid-lag, PERRLA Cardiovascular: S1/S2 wnl, no murmurs, rubs, or gallops Lungs: Clear to auscultation, normal respiratory effort, no accessory muscle use Abdominal: Soft, non-tender, non-distended, no guarding, rebound, or rigidity Skin: Warm, dry Extremities: No edema or contractures, right hip anterior dressing, clean and dry Psychiatric: Awake, oriented only to self Neuro: CN II-XII grossly intact, no focal deficits - Labs CBC & Chem 7: 08/29/19 07:16 08/27/19 13:35 Labs: Abnormal Lab Results - Last 24 Hours (Table) 08/29/19 Range/Units 07:16 WBC 10.9 H (3.8-10.6) k/uL RBC 3.42 L (4.30-5.90) m/uL Hgb 10.8 L (13.0-17.5) gm/dL Hct 34.3 L (39.0-53.0) % MCV 100.2 H (80.0-100.0) fL Neutrophils # 9.3 H (1.3-7.7) k/uL Lymphocytes # 0.7 L (1.0-4.8) k/uL Assessment and Plan Plan: Traumatic R hip fracture -Status post right hip hemiarthroplasty -Planned for discharge to rehab facility -Defer management including pain control to orthopedic surgery Cardiac murmur, likely secondary to moderate aortic stenosis -Echocardiogram reviewed HTN, HLD -C/w home meds: Lipitor 10, Norvasc 10 Leukocytosis -Likely due to acute stressor -Monitor for now Acute blood loss anemia, anticipated outcome of surgery -Monitor CBC for now DVT prophylaxis -As per the surgery service
[2019-08-29] MEDS: QUEtiapine 100 MG TAB PO SCH (22:17)
[2019-08-29] MEDS: ATORVASTATIN 10 MG TAB PO SCH (22:17)
[2019-08-29] MEDS: SENNOSIDES-DOCUSATE SODIUM 1 EACH TAB PO SCH (22:17)
[2019-08-30 08:05] VITALS: BP 145/76; PULSE 86; RESP 17; TEMP 97.6
[2019-08-30] MEDS: amLODIPine 10 MG TAB PO SCH (08:16)
[2019-08-30] MEDS: LORazepam 1 MG TAB PO SCH (08:16)
[2019-08-30] MEDS: ASPIRIN 325 MG TAB PO SCH (08:16)
[2019-08-30] MEDS: MULTIVITAMINS, THERA 1 EACH TAB PO SCH (08:16)
[2019-08-30] MEDS: ENOXAPARIN 40 MG/0.4 ML SYRINGE SQ SCH (08:16)
--- NOTE | 2019-08-30 09:50 | P.DS ---
Providers Date of admission: 08/27/19 13:09 Expected date of discharge: 08/30/19 Attending physician: Roland Bardales Consults: 08/27/19 14:50 Consult Physician Routine Consulting Provider: Katia Rivera Consult Reason/Comments: medMgmnt Do you want consulting provider notified?: Yes 08/27/19 16:50 Consult Physician Urgent Consulting Provider: Osmin Bourne Consult Reason/Comments: Murmur w/ pre-op risk stratification Do you want consulting provider notified?: Yes Primary care physician: Ashutosh Childress - Discharge Diagnosis(es) (1) Fracture of hip Patient was admitted to the OR on 08/28/2019 to undergo a right hip toy arthroplasty after a fall resulted in a right hip fracture.He underwent the above procedure which he tolerated well without complication. Postoperative hospital course has remained without complication. On day of discharge he is afebrile, vital signs stable, labs within acceptable ranges, tolerating by mouth meds and diet, voiding without difficulty, positive flatus, denies abdominal pain or calf pain, pain is controlled on oral pain medication and has no new complaints. Wound is benign, neurovascular status is intact, calf is soft and nontender, abdomen soft and nontender. Review of systems is unobtainable/unreliable due to his mental status. He will need a wheelchair on discharge to complete ADL's. He will also need a hospital bed due to him requiring positioning not not feasible with an ordinary bed in order to alleviate pain. Current Visit: Yes Status: Acute Priority: Medium Procedures: Right hip toy arthroplasty Patient Condition at Discharge: Fair Plan - Discharge Summary Discharge Rx Participant: No New Discharge Prescriptions: New Aspirin 325 mg PO BID #60 tab HYDROcodone/APAP 5-325MG [[place] 5-325] 1 tab PO Q4HR PRN #42 tab PRN Reason: Pain No Action [place]-3 Fatty Acids/Fish Oil [Fish Oil 1,000 mg Softgel] 1 cap PO HS Aspirin EC [Ecotrin Low Dose] 81 mg PO DAILY Vitamin E 100 unit PO DAILY Multivitamins, Thera [Multivitamin (formulary)] 1 tab PO HS QUEtiapine [SEROquel] 100 mg PO HS Simvastatin [Zocor] 20 mg PO HS Sennosides-Docusate Sodium [Senokot-S] 2 tab PO HS LORazepam [Ativan] 1 mg PO Q3H PRN PRN Reason: Anxiety LORazepam [Ativan] 1 mg PO TID clonazePAM [KlonoPIN] 0.5 mg PO DAILY PRN PRN Reason: Anxiety Cholecalciferol [Vitamin D3 (25 Mcg = 1000 Iu)] 1,000 unit PO HS amLODIPine [Norvasc] 10 mg PO DAILY Acetaminophen Tab [Tylenol Tab] 650 mg PO Q6H PRN PRN Reason: Pain Magnesium Hydroxide [Milk of Magnesia] 2,400 mg PO Q72H PRN PRN Reason: Constipation Discharge Medication List Aspirin EC [Ecotrin Low Dose] 81 mg PO DAILY 04/30/16 [History] [place]-3 Fatty Acids/Fish Oil [Fish Oil 1,000 mg Softgel] 1 cap PO HS 04/30/16 [History] Vitamin E 100 unit PO DAILY 04/30/16 [History] Multivitamins, Thera [Multivitamin (formulary)] 1 tab PO HS 06/28/18 [History] QUEtiapine [SEROquel] 100 mg PO HS 02/02/19 [History] Acetaminophen Tab [Tylenol Tab] 650 mg PO Q6H PRN 06/22/19 [History] Cholecalciferol [Vitamin D3 (25 Mcg = 1000 Iu)] 1,000 unit PO HS 06/22/19 [Histo ry] LORazepam [Ativan] 1 mg PO Q3H PRN 06/22/19 [History] LORazepam [Ativan] 1 mg PO TID 06/22/19 [History] Sennosides-Docusate Sodium [Senokot-S] 2 tab PO HS 06/22/19 [History] Simvastatin [Zocor] 20 mg PO HS 06/22/19 [History] amLODIPine [Norvasc] 10 mg PO DAILY 06/22/19 [History] clonazePAM [KlonoPIN] 0.5 mg PO DAILY PRN 06/22/19 [History] Magnesium Hydroxide [Milk of Magnesia] 2,400 mg PO Q72H PRN 08/27/19 [History] Aspirin 325 mg PO BID #60 tab 08/30/19 [Rx] HYDROcodone/APAP 5-325MG [[place] 5-325] 1 tab PO Q4HR PRN #42 tab 08/30/19 [Rx] Follow up Appointment(s)/Referral(s): Ashutosh Childress MD [Primary Care Provider] - 1-2 days Roland Bardales MD [STAFF PHYSICIAN] - 10 Days Activity/Diet/Wound Care/Special Instructions: Accredited home care Keep wound clean and dry Take meds as directed Follow-up with Dr. Bardales in office Weight bear as tolerated May shower in 3 days if no bleeding Discharge Disposition: TRANSFER TO SNF/ECF
[2019-08-30] MEDS: LACTATED RINGERS 1,000 ML IV SCH (10:10)
--- NOTE | 2019-08-30 11:42 | P.PN ---
Subjective Progress Note Date: 08/30/19 Patient seen and examined at bedside private reference library assistant present, patient sleepy but arousable. No acute events overnight Objective - Vital Signs Vital signs: Vital Signs Temp 97.6 F 08/30/19 08:00 Pulse 86 08/30/19 08:00 Resp 17 08/30/19 08:00 BP 145/76 08/30/19 08:00 Pulse Ox 95 08/30/19 08:00 Intake & Output 08/29/19 08/30/19 08/30/19 18:59 06:59 18:59 Intake Total 118 Balance 118 Intake: Oral 118 Other: Voiding Method Diaper Diaper Incontinent Incontinent # Voids 2 2 - Exam General: Non-toxic, in no acute distress, appears stated age, normal weight HEENT: NC/AT, anicteric sclerae, moist conjunctiva, no lid-lag, PERRLA Cardiovascular: S1/S2 wnl, no murmurs, rubs, or gallops Lungs: Clear to auscultation, normal respiratory effort, no accessory muscle use Abdominal: Soft, non-tender, non-distended, no guarding, rebound, or rigidity Skin: Warm, dry Extremities: No edema or contractures, right hip anterior dressing, clean and dry Psychiatric: Awake, oriented only to self Neuro: CN II-XII grossly intact, no focal deficits - Labs CBC & Chem 7: 08/29/19 07:16 08/27/19 13:35 Assessment and Plan Assessment: Traumatic R hip fracture -Status post right hip hemiarthroplasty -Planned for discharge to rehab facility -Defer management including pain control to orthopedic surgery Cardiac murmur, likely secondary to moderate aortic stenosis -Echocardiogram reviewed HTN, HLD -C/w home meds: Lipitor 10, Norvasc 10 Leukocytosis -Likely due to acute stressor -Monitor for now Acute blood loss anemia, anticipated outcome of surgery -Monitor CBC for now DVT prophylaxis -As per the surgery service Plan: Patient stable for discharge today
== END 2019-08-30 13:55 | disposition home or self-care (01) | DRG 470 ==
LOC: EC 12:10 → 4SSUR 13:09 → 4MS4W 16:04 → 4SSUR 08-28 16:16
PROVIDERS: ADMIT Orthopaedic Surgery Sports Medicine; ATTEND Orthopaedic Surgery Sports Medicine
PROC: 0SRR0JA Replacement of Right Hip Joint, Femoral Surface with Synthetic Substitute, Uncemented, Open Approach (ICD-10-PCS; principal; 2019-08-27)
DX: S72.011A Unspecified intracapsular fracture of right femur, initial encounter for closed fracture (principal); D62 Acute posthemorrhagic anemia; W19.XXXA Unspecified fall, initial encounter; Y92.129 Unspecified place in nursing home as the place of occurrence of the external cause; D72.829 Elevated white blood cell count, unspecified; E78.5 Hyperlipidemia, unspecified; F02.80 Dementia in other diseases classified elsewhere, unspecified severity, without behavioral disturbance, psychotic disturbance, mood disturbance, and anxiety; F41.9 Anxiety disorder, unspecified; G30.9 Alzheimer's disease, unspecified; I10 Essential (primary) hypertension; I35.0 Nonrheumatic aortic (valve) stenosis; I44.5 Left posterior fascicular block; Z79.82 Long term (current) use of aspirin; Z79.899 Other long term (current) drug therapy; Z82.49 Family history of ischemic heart disease and other diseases of the circulatory system; Z87.891 Personal history of nicotine dependence; Z96.653 Presence of artificial knee joint, bilateral
CPT/HCPCS: 36415; 71045; 73501; 73502; 80053; 81003; 83735; 84100; 84484; 85025; 85027; 85610; 85730; 86850; 86900; 86901; 88305; 88311; 93005; 93306; 96361; 96374; 99285

== ENCOUNTER 2019-09-10 17:17 | Emergency (ER) | payer MEDICARE, BC ==
[2019-09-10 18:37] VITALS: BP 141/74; PULSE 92; TEMP 98.7
[2019-09-10] MEDS ORDERED: LORazepam 1 MG TAB PO STA (19:13)
[2019-09-10] MEDS ORDERED: HYDROcodone/APAP 5-325MG 1 EACH TAB PO STA (19:13)
--- NOTE | 2019-09-10 19:40 | XR ---
EXAMINATION TYPE: XR Hip RT and AP Pelvis DATE OF EXAM: 09/10/2019 COMPARISON: 08/28/2019 HISTORY: Fall. Pain. TECHNIQUE: A single AP view of the pelvis is obtained. Two views of the right hip are obtained. FINDINGS: The pelvic ring appears intact. There is a right hip prosthesis. Components appear in anato teresa position. There is no evidence of a fracture. Sacroiliac joints appear intact. IMPRESSION: No acute abnormality of the pelvis and right hip. No change.
--- NOTE | 2019-09-10 19:42 | XR ---
EXAMINATION TYPE: XR femur RT DATE OF EXAM: 09/10/2019 COMPARISON: Right hip 08/28/2019 HISTORY: Pain. 4 views Findings There is right knee prosthesis. There is right hip prosthesis. Components are in anatomic position. I see no fracture. There is no dislocation. IMPRESSION: No acute abnormality of the right femur.
--- NOTE | 2019-09-10 19:58 | ED ---
Fall HPI - General Chief Complaint: Fall Stated Complaint: fall Time Seen by Provider: 09/10/19 19:07 Source: patient Mode of arrival: ambulatory Limitations: no limitations - History of Present Illness Initial Comments: 84-year-old male presents emergency Department with family chief complaint right hip pain, fall. Patient is 2 weeks status post hip replacement. Patient reportedly to get up by himself and fell onto his right side. Patient is increase in pain today and they were concerned. Patient denies any head injury family states that his normal mentation. Patient will follow-up with orthopedics today in which they stated he was feeling well. - Related Data Home Medications Medication Instructions Recorded Confirmed Aspirin EC [Ecotrin Low Dose] 81 mg PO DAILY 04/30/16 08/27/19 [place]-3 Fatty Acids/Fish Oil [Fish 1 cap PO HS 04/30/16 08/27/19 Oil 1,000 mg Softgel] Vitamin E 100 unit PO DAILY 04/30/16 08/27/19 Multivitamins, Thera [Multivitamin 1 tab PO HS 06/28/18 08/27/19 (formulary)] QUEtiapine [SEROquel] 100 mg PO HS 02/02/19 08/27/19 Acetaminophen Tab [Tylenol Tab] 650 mg PO Q6H PRN 06/22/19 08/27/19 Cholecalciferol [Vitamin D3 (25 1,000 unit PO HS 06/22/19 08/27/19 Mcg = 1000 Iu)] LORazepam [Ativan] 1 mg PO Q3H PRN 06/22/19 08/27/19 LORazepam [Ativan] 1 mg PO TID 06/22/19 08/27/19 Sennosides-Docusate Sodium 2 tab PO HS 06/22/19 08/27/19 [Senokot-S] Simvastatin [Zocor] 20 mg PO HS 06/22/19 08/27/19 amLODIPine [Norvasc] 10 mg PO DAILY 06/22/19 08/27/19 clonazePAM [KlonoPIN] 0.5 mg PO DAILY PRN 06/22/19 08/27/19 Magnesium Hydroxide [Milk of 2,400 mg PO Q72H PRN 08/27/19 08/27/19 Magnesia] Previous Rx's Medication Instructions Recorded Aspirin 325 mg PO BID #60 tab 08/30/19 HYDROcodone/APAP 5-325MG [[place] 1 tab PO Q4HR PRN #42 tab 08/30/19 5-325] Allergies Allergy/AdvReac Type Severity Reaction Status Date / Time No Known Allergies Allergy Verified 08/27/19 13:01 Review of Systems ROS Statement: Those systems with pertinent positive or pertinent negative responses have been documented in the HPI. ROS Other: All systems not noted in ROS Statement are negative. Past Medical History Past Medical History: Dementia, Hyperlipidemia, Hypertension Additional Past Medical History / Comment(s): Murmur since childhood History of Any Multi-Drug Resistant Organisms: None Reported Past Surgical History: Unable to Obtain, Orthopedic Surgery Additional Past Surgical History / Comment(s): bilateral knee replacement, r shoulder surgery, cardiac monitior placed 01/2019, right hip surgery Past Anesthesia/Blood Transfusion Reactions: No Reported Reaction Past Psychological History: Anxiety Smoking Status: Former smoker Past Alcohol Use History: Occasional Past Drug Use History: None Reported - Past Family History Mother Family Medical History: Cancer Father Family Medical History: Myocardial Infarction ([place]) General Exam Limitations: physical limitation General appearance: alert, in no apparent distress Neck exam: Present: normal inspection, full ROM. Absent: tenderness, meningismus, lymphadenopathy Respiratory exam: Present: normal lung sounds bilaterally. Absent: respiratory distress, wheezes, rales, rhonchi, stridor Cardiovascular Exam: Present: regular rate, normal rhythm, normal heart sounds. Absent: systolic murmur, diastolic murmur, rubs, gallop, clicks Extremities exam: Present: other (Tenderness the right hip, no obvious deformity neurovascular intact right leg with moderate swelling) Skin exam: Present: warm, dry, intact, normal color. Absent: rash Course Vital Signs 09/10/19 18:32 Temperature 98.7 F Pulse Rate 92 Respiratory 17 Rate Blood Pressure 141/74 O2 Sat by Pulse 98 Oximetry Medical Decision Making - Medical Decision Making X-rays reviewed no acute fracture. Patient will be discharged, patient is advised to follow-up with orthopedics. Disposition Clinical Impression: Fall, Right hip pain Disposition: HOME SELF-CARE Condition: Stable Additional Instructions: Please return to the Emergency Department if symptoms worsen or any other concerns. Is patient prescribed a controlled substance at d/c from ED?: No Referrals: Ashutosh Childress MD [Primary Care Provider] - 1-2 days Time of Disposition: 19:58
[2019-09-10 20:30] VITALS: RESP 16
== END 2019-09-10 20:15 | disposition home or self-care (01) ==
LOC: EC 17:17
DX: M25.551 Pain in right hip (principal); M79.89 Other specified soft tissue disorders; F03.90 Unspecified dementia, unspecified severity, without behavioral disturbance, psychotic disturbance, mood disturbance, and anxiety; E78.5 Hyperlipidemia, unspecified; I10 Essential (primary) hypertension; F41.9 Anxiety disorder, unspecified; Z87.891 Personal history of nicotine dependence; Z79.82 Long term (current) use of aspirin; Z79.899 Other long term (current) drug therapy; Z96.641 Presence of right artificial hip joint; Z96.653 Presence of artificial knee joint, bilateral; W18.39XA Other fall on same level, initial encounter; Y92.129 Unspecified place in nursing home as the place of occurrence of the external cause
CPT/HCPCS: 73502; 99283

== ENCOUNTER 2019-09-23 16:28 | Emergency (ER) | payer MEDICARE, BC ==
[2019-09-23 16:43] VITALS: TEMP 98.2
[2019-09-23] MEDS ORDERED: SODIUM CHLORIDE 0.9% 500 ML 500 ML IV STA (16:47)
[2019-09-23] MEDS ORDERED: SODIUM CHLORIDE 0.9% 1,000 ML IV STA ×2 (16:47)
[2019-09-23 16:58] LABS: Basophils % (A) 0 %; Eosinophils # (A) 0.1 k/uL (0-0.7); Eosinophils % (A) 1 %; HCT 35.5 % (39.0-53.0); HGB 11.5 gm/dL (13.0-17.5); Hypochromasia Slight; Lymphocytes # (A) 1.4 k/uL (1.0-4.8); Lymphocytes % (A) 11 %; MCHC 32.5 g/dL (31.0-37.0); MCV 98.4 fL (80.0-100.0); Monocytes # (A) 0.6 k/uL (0-1.0); Monocytes % (A) 4 %; Neutrophils # (A) 10.4 k/uL (1.3-7.7); Neutrophils % (A) 82 %; Platelet Count 407 k/uL (150-450); RBC 3.61 m/uL (4.30-5.90); RDW 13.2 % (11.5-15.5); WBC 12.6 k/uL (3.8-10.6)
[2019-09-23] MEDS ORDERED: LIDOCAINE URO-JET JELLY 2% 5 ML KIT URETHRAL ONE (17:02)
[2019-09-23 17:04] LABS: Ammonia <9 umol/L (<30); Lactic Acid, Venous 1.8 mmol/L (0.7-2.0)
--- NOTE | 2019-09-23 17:04 | ED ---
Weakness HPI - General Chief complaint: Neuro Symptoms/Deficit Stated complaint: Neuro Issues Time Seen by Provider: 09/23/19 16:31 Source: EMS, RN notes reviewed, old records reviewed Mode of arrival: EMS Limitations: altered mental status - History of Present Illness Initial comments: This is a 4-year-old male unable to provide history history obtained from family. Severe dementia, extended care facility intermediate, history obtained by patient's chart and EMS. Patient is hypoxic with increasing unresponsiveness throughout the day today. Patient was given Ativan a [place] which show is increased symptoms. Patient sent ER for evaluation. Patient is mildly arousable but not answering questions, family is at bedside and states this is his baseline MD Complaint: generalized weakness, lack of energy -: hour(s) Location: generalized Severity: severe Severity scale (1-10): 8 Consistency: constant Improves with: none Worsens with: none Associated Symptoms: denies other symptoms - Related Data Home Medications Medication Instructions Recorded Confirmed Aspirin EC [Ecotrin Low Dose] 81 mg PO DAILY@0800 04/30/16 09/23/19 Vitamin E 100 unit PO DAILY@0800 04/30/16 09/23/19 Multivitamins, Thera [Multivitamin 1 tab PO HS@199906/28/18 09/23/19 (formulary)] Acetaminophen Tab [Tylenol Tab] 650 mg PO Q6H PRN 06/22/19 09/23/19 Cholecalciferol [Vitamin D3 (25 1,000 unit PO DAILY@1700 06/22/19 09/23/19 Mcg = 1000 Iu)] LORazepam [Ativan] 1 mg PO BID@0800,1700 06/22/19 09/23/19 LORazepam [Ativan] 1 mg PO Q3H PRN 06/22/19 09/23/19 Sennosides-Docusate Sodium 2 tab PO HS@199906/22/19 09/23/19 [Senokot-S] Simvastatin [Zocor] 20 mg PO HS@199906/22/19 09/23/19 amLODIPine [Norvasc] 10 mg PO DAILY@0800 06/22/19 09/23/19 QUEtiapine [SEROquel] 100 mg PO TID@0800,1400,199909/10/19 09/23/19 Divalproex ER [Depakote ER] 250 mg PO HS@199909/23/19 09/23/19 Ferrous Sulfate [Feosol] 325 mg PO DAILY@0800 09/23/19 09/23/19 HYDROcodone/APAP 5-325MG [[place] 1 tab PO Q6H PRN 09/23/19 09/23/19 5-325] [place]-3 Fatty Acids [[place]-3] 1,000 mg PO HS@199909/23/19 09/23/19 Allergies Allergy/AdvReac Type Severity Reaction Status Date / Time No Known Allergies Allergy Verified 09/23/19 17:14 Review of Systems ROS Statement: Those systems with pertinent positive or pertinent negative responses have been documented in the HPI. ROS Other: All systems not noted in ROS Statement are negative. Past Medical History Past Medical History: Dementia, Hyperlipidemia, Hypertension, Pneumonia Additional Past Medical History / Comment(s): Murmur since childhood, metaolic encephalopathy, osteoarthritis, muscle weakness History of Any Multi-Drug Resistant Organisms: None Reported Past Surgical History: Unable to Obtain, Orthopedic Surgery Additional Past Surgical History / Comment(s): bilateral knee replacement, r s [place] surgery, cardiac monitior placed 01/2019, right hip surgery Past Anesthesia/Blood Transfusion Reactions: No Reported Reaction Past Psychological History: Anxiety Smoking Status: Former smoker Past Alcohol Use History: Occasional Past Drug Use History: None Reported - Past Family History Mother Family Medical History: Cancer Father Family Medical History: Myocardial Infarction ([place]) General Exam Limitations: altered mental status General appearance: alert, in no apparent distress Head exam: Present: atraumatic, normocephalic, normal inspection Eye exam: Present: normal appearance, PERRL, EOMI. Absent: scleral icterus, conjunctival injection, periorbital swelling ENT exam: Present: normal exam, mucous membranes moist Neck exam: Present: normal inspection. Absent: tenderness, meningismus, lymphadenopathy Respiratory exam: Present: normal lung sounds bilaterally. Absent: respiratory distress, wheezes, rales, rhonchi, stridor Cardiovascular Exam: Present: regular rate, normal rhythm, normal heart sounds. Absent: systolic murmur, diastolic murmur, rubs, gallop, clicks GI/Abdominal exam: Present: soft, normal bowel sounds. Absent: distended, tenderness, guarding, rebound, rigid Extremities exam: Present: normal inspection, full ROM, normal capillary refill. Absent: tenderness, pedal edema, joint swelling, calf tenderness Back exam: Present: normal inspection Neurological exam: Present: alert, oriented X3, CN II-XII intact Psychiatric exam: Present: normal affect, normal mood Skin exam: Present: warm, dry, intact, normal color. Absent: rash Course Vital Signs 09/23/19 09/23/19 09/23/19 16:30 16:46 16:47 Temperature 98.2 F Pulse Rate 91 92 Pulse Rate [ 92 [place] ] Respiratory 18 18 Rate Blood Pressure 187/102 178/95 O2 Sat by Pulse 98 98 Oximetry 09/23/19 18:28 Temperature Pulse Rate 91 Pulse Rate [ [place] ] Respiratory 18 Rate Blood Pressure 183/99 O2 Sat by Pulse 96 Oximetry - Reevaluation(s) Reevaluation #1: 09/23/19 17:23 Medical records reviewed Reevaluation #2: 09/23/19 17:23 Patient is responsive to family without verbal contact Reevaluation #3: 09/23/19 19:17 Asians responsiveness has improved here in the ER no episodes of low oxygen EKG Findings - EKG Comments: EKG Findings:: EKG shows sinus rhythm rate of 95, DE 174, QRS 74, QTc 434 Medical Decision Making - Medical Decision Making 84 male the ER for evaluation patient resents today for evaluation regards to altered mental status found to be hypoxic not hypoxic found here in the er, patient given adequate hydration responsiveness has improvement monitoring of pa tient will be discharged back to facility - Lab Data Result diagrams: 09/23/19 16:38 09/23/19 16:38 Lab Results 09/23/19 09/23/19 09/23/19 Range/Units 16:38 16:38 16:38 WBC 12.6 H (3.8-10.6) k/uL RBC 3.61 L (4.30-5.90) m/uL Hgb 11.5 L (13.0-17.5) gm/dL Hct 35.5 L (39.0-53.0) % MCV 98.4 (80.0-100.0) fL MCH 32.0 (25.0-35.0) pg MCHC 32.5 (31.0-37.0) g/dL RDW 13.2 (11.5-15.5) % Plt Count 407 (150-450) k/uL Neutrophils % 82 % Lymphocytes % 11 % Monocytes % 4 % Eosinophils % 1 % Basophils % 0 % Neutrophils # 10.4 H (1.3-7.7) k/uL Lymphocytes # 1.4 (1.0-4.8) k/uL Monocytes # 0.6 (0-1.0) k/uL Eosinophils # 0.1 (0-0.7) k/uL Basophils # 0.0 (0-0.2) k/uL Hypochromasia Slight PT (9.0-12.0) sec INR (<1.2) APTT (22.0-30.0) sec Sodium 150 H (137-145) mmol/L Potassium 4.0 (3.5-5.1) mmol/L Chloride 116 H (98-107) mmol/L Carbon Dioxide 28 (22-30) mmol/L Anion Gap 6 mmol/L BUN 38 H (9-20) mg/dL Creatinine 1.87 H (0.66-1.25) mg/dL Est GFR (CKD-EPI)AfAm 37 (>60 ml/min/1.73 sqM) Est GFR (CKD-EPI)NonAf 32 (>60 ml/min/1.73 sqM) Glucose 116 H (74-99) mg/dL Plasma Lactic Acid Donte 1.8 (0.7-2.0) mmol/L Calcium 12.2 H (8.4-10.2) mg/dL Phosphorus 2.1 L (2.5-4.5) mg/dL Magnesium 2.5 H (1.6-2.3) mg/dL Total Bilirubin 0.4 (0.2-1.3) mg/dL AST 30 (17-59) U/L ALT 44 (21-72) U/L Alkaline Phosphatase 261 H (38-126) U/L Ammonia <9 (<30) umol/L Creatine Kinase 31 L (55-170) U/L Troponin I (0.000-0.034) ng/mL Total Protein 6.9 (6.3-8.2) g/dL Albumin 3.9 (3.5-5.0) g/dL Urine Color Urine Appearance (Clear) Urine pH (5.0-8.0) Ur Specific [place] (1.001-1.035) Urine Protein (Negative) Urine Glucose (UA) (Negative) Urine Ketones (Negative) Urine Blood (Negative) Urine Nitrite (Negative) Urine Bilirubin (Negative) Urine Urobilinogen (<2.0) mg/dL Ur Leukocyte Esterase (Negative) Valproic Acid 11.1 ug/mL 09/23/19 09/23/19 09/23/19 Range/Units 16:38 16:38 17:18 WBC (3.8-10.6) k/uL RBC (4.30-5.90) m/uL Hgb (13.0-17.5) gm/dL Hct (39.0-53.0) % MCV (80.0-100.0) fL MCH (25.0-35.0) pg MCHC (31.0-37.0) g/dL RDW (11.5-15.5) % Plt Count (150-450) k/uL Neutrophils % % Lymphocytes % % Monocytes % % Eosinophils % % Basophils % % Neutrophils # (1.3-7.7) k/uL Lymphocytes # (1.0-4.8) k/uL Monocytes # (0-1.0) k/uL Eosinophils # (0-0.7) k/uL Basophils # (0-0.2) k/uL Hypochromasia PT 10.1 (9.0-12.0) sec INR 0.9 (<1.2) APTT 22.8 (22.0-30.0) sec Sodium (137-145) mmol/L Potassium (3.5-5.1) mmol/L Chloride (98-107) mmol/L Carbon Dioxide (22-30) mmol/L Anion Gap mmol/L BUN (9-20) mg/dL Creatinine (0.66-1.25) mg/dL Est GFR (CKD-EPI)AfAm (>60 ml/min/1.73 sqM) Est GFR (CKD-EPI)NonAf (>60 ml/min/1.73 sqM) Glucose (74-99) mg/dL Plasma Lactic Acid Donte (0.7-2.0) mmol/L Calcium (8.4-10.2) mg/dL Phosphorus (2.5-4.5) mg/dL Magnesium (1.6-2.3) mg/dL Total Bilirubin (0.2-1.3) mg/dL AST (17-59) U/L ALT (21-72) U/L Alkaline Phosphatase (38-126) U/L Ammonia (<30) umol/L Creatine Kinase (55-170) U/L Troponin I 0.027 (0.000-0.034) ng/mL Total Protein (6.3-8.2) g/dL Albumin (3.5-5.0) g/dL Urine Color Yellow Urine Appearance Clear (Clear) Urine pH 5.5 (5.0-8.0) Ur Specific [place] 1.020 (1.001-1.035) Urine Protein Trace H (Negative) Urine Glucose (UA) Negative (Negative) Urine Ketones Negative (Negative) Urine Blood Negative (Negative) Urine Nitrite Negative (Negative) Urine Bilirubin Negative (Negative) Urine Urobilinogen <2.0 (<2.0) mg/dL Ur Leukocyte Esterase Negative (Negative) Valproic Acid ug/mL Disposition Clinical Impression: Altered mental status, Weakness, Dementia Disposition: HOME SELF-CARE Condition: Fair Instructions (If sedation given, give patient instructions): Altered Mental Status (ED) Is patient prescribed a controlled substance at d/c from ED?: No Referrals: Ry Garcia MD [Primary Care Provider] - 1-2 days
[2019-09-23 17:05] LABS: Albumin 3.9 g/dL (3.5-5.0); Calcium 12.2 mg/dL (8.4-10.2); Magnesium 2.5 mg/dL (1.6-2.3); Phosphorus 2.1 mg/dL (2.5-4.5); Total Bilirubin 0.4 mg/dL (0.2-1.3); Total Protein 6.9 g/dL (6.3-8.2)
[2019-09-23 17:12] LABS: INR 0.9 (<1.2); Partial Thromboplastin Time 22.8 sec (22.0-30.0); Prothrombin Time 10.1 sec (9.0-12.0)
[2019-09-23 17:25] LABS: Appearance,Urine Clear (Clear); Bilirubin,Urine Negative (Negative); Blood,Urine Negative (Negative); Color,Urine Yellow; Glucose,Urine (UA) Negative (Negative); Ketones,Urine Negative (Negative); Leukocyte Esterase,Urine Negative (Negative); Nitrite,Urine Negative (Negative); PH, Urine 5.5 (5.0-8.0); Protein,Urine Trace (Negative); Urobilinogen,Urine <2.0 mg/dL (<2.0)
[2019-09-23] MEDS ORDERED: hydrALAZINE HCL 20 MG/ML 1 ML VIAL IVP STA (19:54)
[2019-09-23 20:04] VITALS: BP 162/94; PULSE 84; RESP 24
[2019-09-26 07:59] LABS: Glucose,Whole Blood 107 mg/dL (75-99)
== END 2019-09-23 20:22 | disposition home or self-care (01) ==
LOC: EC 16:28
DX: R41.82 Altered mental status, unspecified (principal); R53.1 Weakness; R09.02 Hypoxemia; F03.90 Unspecified dementia, unspecified severity, without behavioral disturbance, psychotic disturbance, mood disturbance, and anxiety; R01.1 Cardiac murmur, unspecified; E78.5 Hyperlipidemia, unspecified; I10 Essential (primary) hypertension; M19.90 Unspecified osteoarthritis, unspecified site; F41.9 Anxiety disorder, unspecified; Z79.899 Other long term (current) drug therapy; Z79.82 Long term (current) use of aspirin; Z87.891 Personal history of nicotine dependence; Z96.653 Presence of artificial knee joint, bilateral; Z86.61 Personal history of infections of the central nervous system; Z82.49 Family history of ischemic heart disease and other diseases of the circulatory system
CPT/HCPCS: 36415; 93005; 80164; 80053; 82140; 82550; 83605; 83735; 84100; 84484; 85025; 85610; 85730; 81003; 99285; 96374; 96361 ×2; J0360

== ENCOUNTER 2019-09-24 03:12 | Emergency (ER) | payer MEDICARE, BC ==
[2019-09-24 03:21] LABS: Glucose,Whole Blood 113 mg/dL (75-99)
[2019-09-24 03:28] VITALS: RESP 18; TEMP 98.5
[2019-09-24] MEDS ORDERED: SODIUM CHLORIDE 0.9% 500 ML 500 ML IV STA (03:38)
--- NOTE | 2019-09-24 04:02 | XR ---
EXAMINATION TYPE: XR chest 1V portable DATE OF EXAM: 09/24/2019 COMPARISON: NONE HISTORY: Short of breath TECHNIQUE: Single frontal view of the chest is obtained. FINDINGS: There is some atelectasis left lung base. Heart size is normal. Thoracic aorta is atheroma tous. There are chest leads. There is small linear density at the left lung base. IMPRESSION: Mild atelectasis left lung base is the same or slightly worse than last exam. No heart f ailure. There is improved aeration right lung base compared to last exam.
--- NOTE | 2019-09-24 04:10 | ED ---
SOB HPI - General Chief Complaint: Shortness of Breath Stated Complaint: SOB Revisit Time Seen by Provider: 09/24/19 03:14 Source: EMS Mode of arrival: EMS Limitations: no limitations - History of Present Illness Initial Comments: Patient is an 84-year-old man sent from retirement to have evaluation. He does have history of dementia and on arrival he is not able to give any history. He does deny having pain or difficulty breathing. The patient's and daughter did arrive shortly after. They state that they were called by the retirement staff and told that the patient appeared to be pulling at his groin, pulling at his left arm, and crying out like he was in pain. The patient is not manifesting any those behaviors here on arrival. skilled nursing staff also told family and EMS that his pulse ox readings were in the 70s. Again here the patient denies being short of breath. The patient is only able to give yes or no answers when I interview him. But he does deny pain and dyspnea. MD Complaint: shortness of breath -: hour(s) Consistency: now resolved - Related Data Home Medications Medication Instructions Recorded Confirmed Aspirin EC [Ecotrin Low Dose] 81 mg PO DAILY@0800 04/30/16 09/23/19 Vitamin E 100 unit PO DAILY@0804/30/16 09/23/19 Multivitamins, Thera [Multivitamin 1 tab PO HS@199906/28/18 09/23/19 (formulary)] Acetaminophen Tab [Tylenol Tab] 650 mg PO Q6H PRN 06/22/19 09/23/19 Cholecalciferol [Vitamin D3 (25 1,000 unit PO DAILY@169906/22/19 09/23/19 Mcg = 1000 Iu)] LORazepam [Ativan] 1 mg PO BID@0800,1700 06/22/19 09/23/19 LORazepam [Ativan] 1 mg PO Q3H PRN 06/22/19 09/23/19 Sennosides-Docusate Sodium 2 tab PO HS@199906/22/19 09/23/19 [Senokot-S] Simvastatin [Zocor] 20 mg PO HS@199906/22/19 09/23/19 amLODIPine [Norvasc] 10 mg PO DAILY@0800 06/22/19 09/23/19 QUEtiapine [SEROquel] 100 mg PO TID@0800,1400,199909/10/19 09/23/19 Divalproex ER [Depakote ER] 250 mg PO HS@199909/23/19 09/23/19 Ferrous Sulfate [Feosol] 325 mg PO DAILY@0800 09/23/19 09/23/19 HYDROcodone/APAP 5-325MG [[place] 1 tab PO Q6H PRN 09/23/19 09/23/19 5-325] [place]-3 Fatty Acids [[place]-3] 1,000 mg PO HS@199909/23/19 09/23/19 Allergies Allergy/AdvReac Type Severity Reaction Status Date / Time No Known Allergies Allergy Verified 09/23/19 17:14 Review of Systems ROS Statement: Those systems with pertinent positive or pertinent negative responses have been documented in the HPI. ROS Other: All systems not noted in ROS Statement are negative. Constitutional: Denies: fever Respiratory: Reports: as per HPI. Denies: dyspnea Neurological: Denies: headache Past Medical History Past Medical History: Dementia, Hyperlipidemia, Hypertension, Pneumonia Additional Past Medical History / Comment(s): Murmur since childhood, metaolic encephalopathy, osteoarthritis, muscle weakness History of Any Multi-Drug Resistant Organisms: None Reported Past Surgical History: Unable to Obtain, Orthopedic Surgery Additional Past Surgical History / Comment(s): bilateral knee replacement, r shoulder surgery, cardiac monitior placed 01/2019, right hip surgery Past Anesthesia/Blood Transfusion Reactions: No Reported Reaction Past Psychological History: Anxiety Smoking Status: Former smoker Past Alcohol Use History: Occasional Past Drug Use History: None Reported - Past Family History Mother Family Medical History: Cancer Father Family Medical History: Myocardial Infarction ([place]) General Exam Limitations: no limitations General appearance: alert, in no apparent distress Head exam: Present: atraumatic, normocephalic Eye exam: Present: normal appearance, PERRL, EOMI Neck exam: Present: normal inspection, full ROM Respiratory exam: Present: normal lung sounds bilaterally, rhonchi. Absent: respiratory distress, wheezes, rales, stridor Cardiovascular Exam: Present: regular rate, normal rhythm, systolic murmur. Absent: diastolic murmur, rubs, gallop GI/Abdominal exam: Present: soft. Absent: distended, tenderness, guarding, rebound Extremities exam: Present: normal inspection, normal capillary refill. Absent: pedal edema, calf tenderness Neurological exam: Present: alert Skin exam: Present: warm, dry, intact, normal color. Absent: rash Course Vital Signs 09/24/19 09/24/19 09/24/19 03:20 03:29 04:42 Temperature 98.5 F Pulse Rate 98 88 Respiratory 18 18 18 Rate Blood Pressure 185/91 176/99 O2 Sat by Pulse 96 98 Oximetry 09/24/19 05:13 Temperature Pulse Rate 82 Respiratory 18 Rate Blood Pressure 176/99 O2 Sat by Pulse 96 Oximetry Medical Decision Making - Lab Data Result diagrams: 09/24/19 03:45 09/24/19 03:45 Lab Results 09/24/19 09/24/19 09/24/19 Range/Units 03:18 03:45 03:45 WBC 12.0 H (3.8-10.6) k/uL RBC 3.26 L (4.30-5.90) m/uL Hgb 10.3 L (13.0-17.5) gm/dL Hct 32.1 L (39.0-53.0) % MCV 98.4 (80.0-100.0) fL MCH 31.6 (25.0-35.0) pg MCHC 32.1 (31.0-37.0) g/dL RDW 13.3 (11.5-15.5) % Plt Count 370 (150-450) k/uL Neutrophils % 83 % Lymphocytes % 10 % Monocytes % 5 % Eosinophils % 1 % Basophils % 0 % Neutrophils # 10.0 H (1.3-7.7) k/uL Lymphocytes # 1.1 (1.0-4.8) k/uL Monocytes # 0.6 (0-1.0) k/uL Eosinophils # 0.1 (0-0.7) k/uL Basophils # 0.0 (0-0.2) k/uL Hypochromasia Slight Sodium 149 H (137-145) mmol/L Potassium 4.0 (3.5-5.1) mmol/L Chloride 120 H (98-107) mmol/L Carbon Dioxide 26 (22-30) mmol/L Anion Gap 3 mmol/L BUN 36 H (9-20) mg/dL Creatinine 1.33 H (0.66-1.25) mg/dL Est GFR (CKD-EPI)AfAm 56 (>60 ml/min/1.73 sqM) Est GFR (CKD-EPI)NonAf 48 (>60 ml/min/1.73 sqM) Glucose 104 H (74-99) mg/dL POC Glucose (mg/dL) 113 H (75-99) mg/dL POC Glu Diesel Technician ID Kim Burnham Calcium 11.4 H (8.4-10.2) mg/dL Valproic Acid <10.0 ug/mL - EKG Data -: EKG Interpreted by Me EKG shows normal: sinus rhythm, axis (Normal), intervals (OK interval 182 ms, QRS duration 98 ms. QTC is read as 720 ms, prolonged, but I suspect that there is artifactual abnormality and will repeat this ECG.), QRS complexes (Normal) Rate: normal (94 bpm) Interpretation: nonspecific ST-T wave changes Disposition Clinical Impression: HTN (hypertension) Disposition: HOME SELF-CARE Condition: Fair Instructions (If sedation given, give patient instructions): Hypertension (ED) Is patient prescribed a controlled substance at d/c from ED?: No Referrals: None,Stated [Primary Care Provider] - 1-2 days
[2019-09-24 04:23] LABS: Basophils % (A) 0 %; Eosinophils # (A) 0.1 k/uL (0-0.7); Eosinophils % (A) 1 %; HCT 32.1 % (39.0-53.0); HGB 10.3 gm/dL (13.0-17.5); Hypochromasia Slight; Lymphocytes # (A) 1.1 k/uL (1.0-4.8); Lymphocytes % (A) 10 %; MCH 31.6 pg (25.0-35.0); MCHC 32.1 g/dL (31.0-37.0); MCV 98.4 fL (80.0-100.0); Mean Platelet Volume 6.4; Monocytes # (A) 0.6 k/uL (0-1.0); Monocytes % (A) 5 %; Neutrophils % (A) 83 %; Platelet Count 370 k/uL (150-450); RBC 3.26 m/uL (4.30-5.90); RDW 13.3 % (11.5-15.5)
[2019-09-24 04:25] LABS: African American GFR (CKD) 56 (>60 ml/min/1.73 sqM); Anion Gap 3 mmol/L; Blood Urea Nitrogen 36 mg/dL (9-20); Calcium 11.4 mg/dL (8.4-10.2); Carbon Dioxide 26 mmol/L (22-30); Chloride 120 mmol/L (98-107); Glucose 104 mg/dL (74-99); Sodium 149 mmol/L (137-145)
[2019-09-24] MEDS ORDERED: amLODIPine 10 MG TAB PO STA (04:27)
[2019-09-24 04:43] VITALS: BP 176/99
[2019-09-24 05:15] VITALS: PULSE 82
[2019-09-24] MEDS ORDERED: LABETALOL 5 MG/ML VIAL MDV IVP STA (05:39)
== END 2019-09-24 07:08 | disposition home or self-care (01) ==
LOC: EC 03:12
DX: I10 Essential (primary) hypertension (principal); R06.02 Shortness of breath; F03.90 Unspecified dementia, unspecified severity, without behavioral disturbance, psychotic disturbance, mood disturbance, and anxiety; E78.5 Hyperlipidemia, unspecified; M19.90 Unspecified osteoarthritis, unspecified site; F41.9 Anxiety disorder, unspecified; Z79.82 Long term (current) use of aspirin; Z79.899 Other long term (current) drug therapy; Z86.61 Personal history of infections of the central nervous system; Z96.653 Presence of artificial knee joint, bilateral; Z87.891 Personal history of nicotine dependence
CPT/HCPCS: 36415; 71045; 80048; 80164; 85025; 93005; 96374; 99285